=== PATIENT | male | born 1970 | race Caucasian/White ===

== ENCOUNTER 2021-04-07 19:38 | Emergency (ER) | payer OTHER, SELFPAY ==
--- NOTE | ~2021-04-07 | CT_ITS ---
EXAMINATION: CT ABDOMEN AND PELVIS WITHOUT CONTRAST CLINICAL INFORMATION: 51-year-old male with left lower quadrant pain. Question diverticulitis. COMPARISON: CT abdomen pelvis April 28, 2018 TECHNIQUE: Multidetector volumetric imaging was performed from the superior aspect of the liver through the pubic symphysis. Sagittal and coronal reformatted images were obtained on the technologist's workstation. This CT examination was performed using dose optimization techniques as appropriate, variously including the following: *Automated exposure control *Adjustment of mA and/or kV according to patient size (this includes techniques or standardized protocols for targeted exams where dose is matched to indication/reason for exam; i.e. extremities or head) *Use of iterative reconstruction technique DLP: 1150 mGy-cm FINDINGS: Visualized lung bases are well aerated. The liver is normal in size but demonstrates diffusely decreased attenuation. The gallbladder is decompressed. Mild fatty atrophy of the pancreas. The spleen and adrenal glands are unremarkable. Symmetrically sized kidneys. No renal calculi or hydronephrosis bilaterally. A few small bilateral renal hypodensities are poorly characterized given lack of IV contrast. Normal caliber loops of small and large bowel. Moderate colonic diverticulosis. No CT evidence to suggest active diverticulitis. Normal appendix. Normal caliber abdominal aorta. No retroperitoneal lymphadenopathy. The bladder is decompressed and therefore not accurately evaluated. The prostate gland is not enlarged. No inguinal lymphadenopathy. No gross free pelvic fluid. [id number] degenerative changes of the spine. CT/CT abdomen pelvis wo con IMPRESSION: 1. Colonic diverticulosis. No CT evidence to suggest active diverticulitis. 2. Diffusely decreased liver attenuation suggesting hepatic steatosis. Correlation with liver enzymes recommended.
--- NOTE | 2021-04-07 19:41 | ED_ITS ---
HPI - Abdominal Pain General Chief Complaint: Abdominal Pain Stated Complaint: chest pain stomach pain nausea Time Seen by Provider: 04/07/21 19:40 Source: patient Mode of arrival: ambulatory Limitations: no limitations History of Present Illness HPI narrative: Patient with chronic abdominal pain with history of div erticulitis complaining of his lower abdominal pain since yesterday with nausea and bloating got worse today no fever no chills no vomiting no blood in stool no fever no chills no diarrhea feels like pressure similar to that in the past no urinary complaints Related Data Previous Rx's Medication Instructions Recorded ciprofloxacin HCl [Cipro] 500 mg PO BID #20 tab 04/07/21 metronidazole [Flagyl] 500 mg PO BID #20 tab 04/07/21 ondansetron 4 mg PO Q6-8H PRN #7 tab 04/07/21 oxycodone 5 mg PO Q6H PRN #20 tab 04/07/21 Allergies Allergy/AdvReac Type Severity Reaction Status Date / Time hazelnut Allergy Severe ANAPHYLAXIS Verified 04/07/21 19:55 meperidine [Demerol] Allergy Unknown Dizziness Verified 04/07/21 19:55 From TORADOL Allergy Unknown HIVES Uncoded 04/07/21 19:55 hazelnut Allergy Unknown shortness Uncoded 04/07/21 19:55 of breath Review of Systems Review of Systems Constitutional : No Weight loss, No Fever, No Chills ENT/Mouth : No sore throat, No Rhinorrhea Eyes: No Eye Pain, No Swelling Cardiovascular : No Chest Pain, no palpitations Respiratory : No Cough, No Sputum, no shortness of breath Gastrointestinal : +Nausea, No Vomiting, No Diarrhea, + abdominal Pain, no black stools Genitourinary : No Dysuria, No Urinary Frequency Musculoskeletal : No joint pain, No Myalgias, No Joint Swelling Skin : No Skin Lesions, No rash Neuro : No Weakness, No Numbness, No Dizziness, No Headache Psych : No Anxiety/Panic, No Depression Heme/Lymph: No Bruising, No Lymphadenopathy Endocrine : No Polyuria, No Polydipsia All other systems reviewed and are negative Physical Exam Vital Signs: Vital Signs: Last Vital Signs Temp 98.8 F 04/07/21 20:00 Pulse 73 04/07/21 20:00 Resp 20 04/07/21 20:00 BP 157/88 H 04/07/21 20:00 Pulse Ox 95 06/03/21 20:00 Body Mass Index 47.9 Appearance: Alert. Oriented X3. No acute distress. Eyes: PERRLA, No Nystagmus ENT: Pharynx normal. Oral Mucosa moist Neck: Normal inspection. Neck supple. CVS: Normal heart rate and rhythm. Pulses normal. Respiratory: No respiratory distress. Equal air entry bilateral, no wheezing/rales/rhonchi Abdomen: Soft , deep tenderness left lower quadrant no rebound tenderness or guarding Bowel sounds are present, no mass palpable, no CVA tenderness Genitalia: Nontender normal size testicles no skin changes no hernia Skin: Skin warm and dry. Normal skin color. Normal skin turgor. Extremities: No lower extremity edema. No calf tenderness Neuro: Oriented X 3. No motor deficit. MDM - Abdominal Pain MDM Narrative Medical decision making narrative: Patient with diffuse lower abdominal pain CT scan without any diverticulitis but has elevated WBC count with significant diverticulosis and CT scan. Will discharge patient home on Cipro and Flagyl for possible subclinical diverticulitis Medical Records Attestation: I reviewed the patient's medical records. Lab Data Attestation: I reviewed the patient's lab results. Result diagrams: 04/07/21 20:15 04/07/21 20:15 Labs: Lab Results 04/07/21 04/07/21 04/07/21 Range/Units 20:07 20:15 20:15 WBC 16.6 H (4.8-10.8) X10*3/uL RBC 4.85 (4.60-5.80) X10*6/uL Hgb 15.6 (14.0-18.0) g/dl Hct 46.0 (42-52) % MCV 94.8 (80-98) fL MCH 32.2 (27.0-33.0) pg MCHC 33.9 (31.0-36.0) g/dl RDW 12.5 (11.0-16.0) % Plt Count 284 (160-400) X10*3/uL MPV 10.1 (9.4-12.4) fL Immature Gran % (Auto) 0.4 (0.0-0.4) % Neut % (Auto) 68.1 (45-73) % Lymph % (Auto) 22.5 (20-40) % [place] % (Auto) 7.9 (2-11) % Eos % (Auto) 0.8 (0-4) % Baso % (Auto) 0.3 (0-2) % Lymph # (Auto) 3.7 (1.2-4.9) X10*3/uL [place] # (Auto) 1.3 H (0.1-1.2) X10*3/uL Eos # (Auto) 0.1 (0.0-0.4) X10*3/uL Baso # (Auto) 0.1 (0.0-0.2) X10*3/uL Abs Immat Gran (auto) 0.07 H (0.00-0.03) X10*3/uL Absolute Neuts (auto) 11.3 H (2.0-8.3) X10*3/uL Absolute Nucleated RBC 0.000 (0.0-0.012) X10*3/uL Nucleated RBC % (auto) 0.0 (0.0-0.2) /100WBC Sodium 142 (135-145) mmol/L Potassium 4.1 (3.3-5.1) mmol/L Chloride 106 (96-108) mmol/L Carbon Dioxide 23 (22-29) mmol/L Anion Gap 17 (12-20) BUN 15 (9-16) mg/dL Creatinine 1.01 (0.5-1.4) mg/dL Estim Creat Clear Calc 112.8 Estimated GFR > 60 Random Glucose 113 (60-115) mg/dL Calcium 9.5 (8.4-10.2) mg/dL Total Bilirubin (0.0-1.0) mg/dL Direct Bilirubin (0.0-0.5) mg/dL AST (5-37) U/L ALT (0-40) U/L Alkaline Phosphatase (39-117) U/L Total Protein (6.5-8.0) g/dL Albumin (3.5-5.0) g/dL Lipase (8-78) U/L Urine Color YELLOW Urine Appearance CLEAR Urine pH 6.0 (5.0-8.0) Ur Specific [place] >= 1.030 H (1.005-1.025) Urine Protein TRACE (NEG-TRACE) MG/DL Urine Glucose (UA) 500 H (NEG) MG/DL Urine Ketones 5 (NEG) MG/DL Urine Blood NEG (NEG) Urine Nitrite NEG (NEG) Ur Leukocyte Esterase NEG (NEG) 04/07/21 Range/Units 20:15 WBC (4.8-10.8) X10*3/uL RBC (4.60-5.80) X10*6/uL Hgb (14.0-18.0) g/dl Hct (42-52) % MCV (80-98) fL MCH (27.0-33.0) pg MCHC (31.0-36.0) g/dl RDW (11.0-16.0) % Plt Count (160-400) X10*3/uL MPV (9.4-12.4) fL Immature Gran % (Auto) (0.0-0.4) % Neut % (Auto) (45-73) % Lymph % (Auto) (20-40) % [place] % (Auto) (2-11) % Eos % (Auto) (0-4) % Baso % (Auto) (0-2) % Lymph # (Auto) (1.2-4.9) X10*3/uL [place] # (Auto) (0.1-1.2) X10*3/uL Eos # (Auto) (0.0-0.4) X10*3/uL Baso # (Auto) (0.0-0.2) X10*3/uL Abs Immat Gran (auto) (0.00-0.03) X10*3/uL Absolute Neuts (auto) (2.0-8.3) X10*3/uL Absolute Nucleated RBC (0.0-0.012) X10*3/uL Nucleated RBC % (auto) (0.0-0.2) /100WBC Sodium (135-145) mmol/L Potassium (3.3-5.1) mmol/L Chloride (96-108) mmol/L Carbon Dioxide (22-29) mmol/L Anion Gap (12-20) BUN (9-16) mg/dL Creatinine (0.5-1.4) mg/dL Estim Creat Clear Calc Estimated GFR Random Glucose (60-115) mg/dL Calcium (8.4-10.2) mg/dL Total Bilirubin 0.6 (0.0-1.0) mg/dL Direct Bilirubin 0.2 (0.0-0.5) mg/dL AST 37 (5-37) U/L ALT 42 H (0-40) U/L Alkaline Phosphatase 83 (39-117) U/L Total Protein 7.5 (6.5-8.0) g/dL Albumin 4.3 (3.5-5.0) g/dL Lipase 57 (8-78) U/L Urine Color Urine Appearance Urine pH (5.0-8.0) Ur Specific [place] (1.005-1.025) Urine Protein (NEG-TRACE) MG/DL Urine Glucose (UA) (NEG) MG/DL Urine Ketones (NEG) MG/DL Urine Blood (NEG) Urine Nitrite (NEG) Ur Leukocyte Esterase (NEG) Discharge Plan Discharge Clinical Impression: Diverticulitis large intestine Patient Disposition: Home, Self-Care Instructions: Diverticulitis (ED) Additional Instructions: CT scan showed diverticulosis no clear-cut findings of infection but your white count are high. Will give antibiotic for possible infection. Pain medicine as advised. Report to the ER if worsening of the pain/ fever/ blood in stool Prescriptions: New ciprofloxacin HCl [Cipro] 500 mg tablet 500 mg PO BID Qty: 20 RF: 0 metronidazole [Flagyl] 500 mg tablet 500 mg PO BID Qty: 20 RF: 0 ondansetron 4 mg tablet,disintegrating 4 mg PO Q6-8H PRN (Reason: nausea and vomiting) Qty: 7 RF: 0 oxycodone 5 mg tablet 5 mg PO Q6H PRN (Reason: Pain, Moderate) Qty: 20 RF: 0 Interventions: ED Discharge Assessment Last Done: 04/07/21 21:51 Discharge Date/Time: 04/07/21 21:52 [facility] Social History Social History Advance Directives: No Advance Directives Information Provided: No
[2021-04-07 19:50] VITALS: BP 132/87; BP 157/88; PULSE 81; PULSE 88; RESP 20; TEMP 37.1; O2SAT 95; O2SAT 99; BMI 47.9
[2021-04-07 20:00] VITALS: BP 157/88; PULSE 73; RESP 20; TEMP 37.1; O2SAT 95
[2021-04-07 20:22] LABS: MANUAL DIFF FLAG NO
[2021-04-07 20:23] LABS: Basophils Absolute Auto 0.1 X10*3/uL (0.0-0.2); Basophils Percent Auto 0.3 % (0-2); Eosinophils Absolute Auto 0.1 X10*3/uL (0.0-0.4); Eosinophils Percent Auto 0.8 % (0-4); Hemoglobin 15.6 g/dl (14.0-18.0); Imm Gran Abs Auto 0.07 X10*3/uL (0.00-0.03); Imm Gran Pct Auto 0.4 % (0.0-0.4); Lymphocytes Absolute Auto 3.7 X10*3/uL (1.2-4.9); Lymphocytes Percent Auto 22.5 % (20-40); Mean Corpuscular HGB Conc 33.9 g/dl (31.0-36.0); Mean Corpuscular Hemoglobin 32.2 pg (27.0-33.0); Mean Corpuscular Volume 94.8 fL (80-98); Mean Platelet Volume 10.1 fL (9.4-12.4); Monocytes Absolute Auto 1.3 X10*3/uL (0.1-1.2); Monocytes Percent Auto 7.9 % (2-11); Neutrophils Absolute Auto 11.3 X10*3/uL (2.0-8.3); Neutrophils Percent Auto 68.1 % (45-73); Platelet Count 284 X10*3/uL (160-400); Red Blood Count 4.85 X10*6/uL (4.60-5.80); Red Cell Distribution Width 12.5 % (11.0-16.0); White Blood Count 16.6 X10*3/uL (4.8-10.8)
[2021-04-07 20:23] LABS: Appearance Urine CLEAR; Color Urine YELLOW; Glucose Urine UA 500 MG/DL (NEG); Leukocyte Esterase Urine NEG (NEG); Nitrite Urine NEG (NEG); Specific Gravity - Urine >= 1.030 (1.005-1.025); Urine Blood NEG (NEG); Urine Ketones 5 MG/DL (NEG); Urine Protein TRACE MG/DL (NEG-TRACE)
[2021-04-07] MEDS: ondansetron HCL 4 MG/2 ML VIAL IVPUSH (20:31)
[2021-04-07] MEDS: Morphine Sulfate 4 MG/ML CARTRIDGE IVPUSH (20:31)
[2021-04-07] MEDS: 0.9 % Sodium Chloride 1,000 ML 999 ML IVCONT (20:31)
[2021-04-07 20:44] LABS: Anion Gap 17 (12-20); Blood Urea Nitrogen 15 mg/dL (9-16); Calcium 9.5 mg/dL (8.4-10.2); Carbon Dioxide 23 mmol/L (22-29); Chloride 106 mmol/L (96-108); Creatinine Clr Calc Pharmacy 112.8; Estimated Glomerular Filt Rate > 60; Glucose Random 113 mg/dL (60-115); Potassium 4.1 mmol/L (3.3-5.1); Sodium 142 mmol/L (135-145)
[2021-04-07 20:51] LABS: Alanine Aminotransferase 42 U/L (0-40); Albumin Level 4.3 g/dL (3.5-5.0); Alkaline Phosphatase 83 U/L (39-117); Aspartate Amino Transferase 37 U/L (5-37); Bilirubin Direct 0.2 mg/dL (0.0-0.5); Bilirubin Total 0.6 mg/dL (0.0-1.0); Lipase 57 U/L (8-78); Total Protein 7.5 g/dL (6.5-8.0)
[2021-04-07] MEDS: metroNIDAZOLE 500 MG TABLET PO (21:45)
[2021-04-07] MEDS: levoFLOXacin 500 MG TABLET PO (21:45)
== END 2021-04-07 21:52 | disposition home or self-care (01) ==
PROVIDERS: Emergency Provider Internal Medicine; PCP Family Medicine
DX: K57.32 Diverticulitis of large intestine without perforation or abscess without bleeding (principal); R10.30 Lower abdominal pain, unspecified
CPT/HCPCS: 36415; 74176; 80048; 80076; 81003; 83690; 85025; 96361; 96374; 96375; 99284; J2270; J2405

== ENCOUNTER → 2021-04-28 09:26 | Outpatient (BNVA) | payer OTHER, SELFPAY | PROVIDERS: PCP Family Medicine; Referring Provider Family Medicine; Visit Provider Surgery | DX: K57.90 Diverticulosis of intestine, part unspecified, without perforation or abscess without bleeding (principal) | CPT/HCPCS: 99212 ==

== ENCOUNTER 2021-06-28 10:11 | Outpatient (REF) | payer OTHER, SELFPAY | END 2021-06-28 10:12 | disposition home or self-care (01) | LOC: HO.US 10:11 | PROVIDERS: Visit Provider Family Medicine | DX: Z13.89 Encounter for screening for other disorder (principal) ==

== ENCOUNTER 2021-06-29 12:40 | Outpatient (REF) | payer OTHER, SELFPAY ==
--- NOTE | ~2021-06-29 | US_ITS ---
EXAMINATION: US SCROTUM CLINICAL INFORMATION: Right testicular pain. COMPARISON: Scrotal ultrasound 05/30/2012 and 04/03/2012. TECHNIQUE: A sonogram of the scrotum was performed assessing duarte-scale appearance and color Doppler flow. Spectral Doppler analysis of the arterial and venous flow were performed in the testes bilaterally. FINDINGS: RIGHT: Right testicle measures 3.0 x 2.8 x 2.7 cm, volume 12.2 mL. There are 2 simple testicular cysts, largest measuring 4 x 4 x 3 mm. There is a small testicular appendage measuring 3 x 2 x 2 mm. No other focal testicular parenchymal lesions are visualized. Spectral Doppler analysis of the arterial and venous flow is normal in the right testis. There is a large right hydrocele. Right epididymal head is normal in size. No right varicocele is seen. Right epididymal Doppler flow is normal. LEFT: Left testicle measures 3.8 x 2.2 x 3.0 cm, volume 12.9 mL. There is a 2 mm cyst. No other focal testicular parenchymal lesions are visualized. Spectral Doppler analysis of the arterial and venous flow is normal in the left testis. There is a large left hydrocele. Left epididymal head is normal in size. No left varicocele is seen. Left epididymal Doppler flow is normal. US/US scrotum IMPRESSION: Large bilateral hydroceles, right greater than left. Small bilateral testicular cysts.
== END 2021-06-29 12:41 | disposition home or self-care (01) ==
LOC: HO.US 12:40
PROVIDERS: Visit Provider Family Medicine
DX: N50.811 Right testicular pain (principal); N50.89 Other specified disorders of the male genital organs
CPT/HCPCS: 76870

== ENCOUNTER → 2022-03-02 10:36 | Outpatient (BNVA) | payer OTHER, SELFPAY | PROVIDERS: PCP Family Medicine; Referring Provider Family Medicine; Visit Provider Surgery | DX: N50.89 Other specified disorders of the male genital organs (principal) | CPT/HCPCS: 99212 ==

== ENCOUNTER 2022-04-20 10:18 | Outpatient (REF) | payer OTHER, SELFPAY ==
--- NOTE | ~2022-04-20 | US_ITS ---
EXAMINATION: US SCROTUM CLINICAL INFORMATION: Scrotal mass. COMPARISON: Scrotal ultrasound 06/29/2021 and 05/30/2012. TECHNIQUE: A sonogram of the scrotum was performed assessing duarte-scale appearance and color Doppler flow. Spectral Doppler analysis of the arterial and venous flow were performed in the testes bilaterally. FINDINGS: RIGHT: Right testicle measures 4.0 x 2.2 x 2.7 cm, volume 12.4 mL. There are right-sided small cysts measuring 0.4 x 0.4 x 0.4 cm, 0.4 x 0.3 x 0.4 cm and 0.4 x 0.4 x 0.5 cm. Spectral Doppler analysis of the arterial and venous flow is normal in the right testis. Right epididymal head is normal in size. Small anechoic cyst seen in the epididymal head measuring 0.158 cm. No right varicocele is seen. Right epididymal Doppler flow is normal. There is large right hydrocele measuring approximately 7.3 x 2.7 x 6.9 cm. LEFT: Left testicle measures 3.9 x 2.2 x 2.8 cm, volume 12.6 mL. There a small cysts measuring 0.3 x 0.3 x 0.3 cm and 0.1 x 0.1 x 0.1 cm. Spectral Doppler analysis of the arterial and venous flow is normal in the left testis. Left epididymal head is unremarkable except for small cysts measuring 0.4 x 0.4 x 0.5 cm, 0.4 x 0.4 x 0.3 cm and 0.3 x 0.5 x 0.3 cm. No left varicocele is seen. Left epididymal Doppler flow is normal. US/US scrotum IMPRESSION: Bilateral epididymal cysts and bilateral testicular cysts. There is normal scrotal arteriovenous flow to both testes and epididymides. There is large right hydrocele. A few left epididymal head cysts are noted.
== END 2022-04-20 10:19 | disposition home or self-care (01) ==
LOC: HO.HMGCX 10:18
PROVIDERS: PCP Family Medicine; Visit Provider Surgery
DX: N50.89 Other specified disorders of the male genital organs (principal)
CPT/HCPCS: 76870

== ENCOUNTER 2022-04-26 08:06 | Emergency (ER) | payer OTHER, SELFPAY ==
[2022-04-26 08:07] VITALS: BP 140/91; PULSE 91; RESP 20; TEMP 36.5; O2SAT 96; BMI 45.1
--- NOTE | 2022-04-26 08:26 | ED.MALEGU ---
HPI - Male Genitourinary General Chief complaint: Urogenital-Male Stated complaint: Private Area Issue Time Seen by Provider: 04/26/22 08:14 Source: patient Mode of arrival: ambulatory Limitations: no limitations History of Present Illness Complaint: other (cant retract foreskin) Onset (ago): day(s) (3) Duration: constant Location: penis Radiation: penis Severity: mild Relieving factors: none Exacerbating factors: other (trying to pull back foreskin) Associated symptoms: Reports denies other symptoms Related Data Previous Rx's Medication Instructions Recorded ciprofloxacin HCl 500 mg tablet 500 mg PO BID #20 tabs 04/07/21 (Cipro) metronidazole 500 mg tablet 500 mg PO BID #20 tabs 04/07/21 (Flagyl) ondansetron 4 mg disintegrating 4 mg PO Q6-8H PRN nausea and 04/07/21 tablet vomiting #7 tabs oxycodone 5 mg tablet 5 mg PO Q6H PRN Pain, Moderate #20 04/07/21 tabs amoxicillin 875 mg-potassium 1 tab PO BID #14 tabs 04/26/22 clavulanate 125 mg tablet clotrimazole 1 % topical cream 1 appl topical BID 2 weeks #30 04/26/22 grams Allergies Allergy/AdvReac Type Severity Reaction Status Date / Time hazelnut Allergy Severe ANAPHYLAXIS Verified 03/02/22 11:04 meperidine [Demerol] Allergy Unknown Dizziness Verified 03/02/22 11:04 From TORADOL Allergy Unknown HIVES Uncoded 02/01/22 13:15 hazelnut Allergy Unknown shortness Uncoded 02/01/22 13:15 of breath Review of Systems Review of Systems: Constitutional : No Fever, No Chills ENT/Mouth : No sore throat, No Rhinorrhea Cardiovascular : No Chest Pain, No SOB Respiratory : No Cough, No Sputum, No Wheezing Gastrointestinal : No Nausea, No Vomiting, No Diarrhea Genitourinary : No Dysuria, No Urinary Frequency, No Hematuria, no rash Musculoskeletal : No joint pain, No Myalgias, No Joint Swelling Skin : No Skin Lesions, No rash Neuro : No Weakness, No Numbness, No Dizziness, No Headache Psych : No Anxiety/Panic, No Depression PMFSH Past Medical History Attestation statement: The following information was validated with the patient. Medical History (Updated 04/26/22 @ 08:35 by Park Brantley DO) Diabetes Diverticulosis HTN (hypertension) Family History Family History Sister Breast cancer Maternal Aunt Colon cancer Family/Other Colon cancer Social History Social History Alcohol intake: never Patient Tobacco Use Status: Current everyday Tobacco user Advance Directives: No Advance Directives Information Provided: No Physical Exam Vital Signs: Vital Signs: Last Vital Signs Temp 97.7 F 04/26/22 08:07 Pulse 91 04/26/22 08:07 Resp 20 04/26/22 08:07 BP 140/91 H 04/26/22 08:07 Pulse Ox 96 04/26/22 08:07 O2 Del Method 04/26/22 08:07 BMI result Body Mass Index 45.1 Appearance: Alert. Oriented X3. No acute distress. Eyes: Pupils equal, round and reactive to light. ENT: Pharynx normal. Neck: Normal inspection. Neck supple. CVS: Normal heart rate and rhythm. Pulses normal. Respiratory: No respiratory distress. Breath sounds normal. Abdomen: Soft and nontender. Obese : phimosis of foreskin but able to see small part of glans mild erythema of distal foreskin, small cracks in foreskin small white discharge seen no crepitus no other discolorations Skin: Skin warm and dry. Normal skin color. Extremities: No lower extremity edema. Neuro: Oriented X 3. No motor deficit. No sensory deficit. MDM - Male Genitourinary MDM Narrative Medical decision making narrative: 52 yo male hx of HTN, DM here with phimosis able to urinate notes x 3 days has balanitis but glans is not markedly swollen at this time will start on clotrimazole and augmentin refer to Urology given precautions to return Discharge Plan Discharge Clinical Impression: Balanitis, Phimosis Patient Disposition: Home, Self-Care Instructions: Phimosis (ED), Balanitis (ED) Additional Instructions: return to ED for any worsening symptoms or concerns if not better in 3 days call urology if you cannot urinate please return, you need to try to pull back and apply ointment Prescriptions: New clotrimazole 1 % cream 1 appl topical BID 14 Days Qty: 30 0RF amoxicillin-pot clavulanate 875-125 mg tablet 1 tab PO BID Qty: 14 0RF No Action ciprofloxacin HCl [Cipro] 500 mg tablet 500 mg PO BID Qty: 20 0RF metronidazole [Flagyl] 500 mg tablet 500 mg PO BID Qty: 20 0RF ondansetron 4 mg tablet,disintegrating 4 mg PO Q6-8H PRN (Reason: nausea and vomiting) Qty: 7 0RF oxycodone 5 mg tablet 5 mg PO Q6H PRN (Reason: Pain, Moderate) Qty: 20 0RF Referrals: Pal Yañez MD [Physician] - 3 days Stand Alone Forms: Work/School Release
== END 2022-04-26 08:58 | disposition home or self-care (01) ==
PROVIDERS: Emergency Provider Emergency Medicine; PCP Family Medicine
DX: N47.1 Phimosis (principal); N48.1 Balanitis; Z79.899 Other long term (current) drug therapy; F17.200 Nicotine dependence, unspecified, uncomplicated; Z71.6 Tobacco abuse counseling
CPT/HCPCS: 99283

== ENCOUNTER 2022-07-13 08:37 | Emergency (ER) | payer OTHER, SELFPAY ==
[2022-07-13 08:38] VITALS: BP 135/89; PULSE 77; RESP 18; TEMP 36.5; O2SAT 97; BMI 46.3
== END 2022-07-13 21:18 | disposition left against medical advice (07) ==
PROVIDERS: Emergency Provider Emergency Medicine; PCP Family Medicine
DX: R10.30 Lower abdominal pain, unspecified (principal)
CPT/HCPCS: 99281

== ENCOUNTER 2022-12-16 08:12 | Emergency (ER) | payer OTHER, SELFPAY ==
--- NOTE | ~2022-12-16 | CT_ITS ---
EXAMINATION: CT ABDOMEN AND PELVIS WITHOUT CONTRAST CLINICAL INFORMATION: Lower abdominal pain. Evaluate for diverticulitis. COMPARISON: Multiple priors, most recent CT abdomen/pelvis dated 04/07/2021. TECHNIQUE: Multidetector volumetric imaging was performed from the superior aspect of the liver through the pubic symphysis. Sagittal and coronal reformatted images were obtained on the technologist's workstation. This CT examination was performed using dose optimization techniques as appropriate, variously including the following: *Automated exposure control *Adjustment of mA and/or kV according to patient size (this includes techniques or standardized protocols for targeted exams where dose is matched to indication/reason for exam; i.e. extremities or head) *Use of iterative reconstruction technique DLP: 1068 mGy-cm FINDINGS: LUNG BASES: The visualized lung bases are unremarkable. LIVER, GALLBLADDER, AND BILIARY TREE: Hepatomegaly and parenchymal hypoattenuation are redemonstrated, consistent with steatosis. No focal parenchymal lesion or biliary ductal dilatation. The gallbladder is unremarkable with no evidence of radiopaque gallstones, gallbladder wall thickening, or obvious pericholecystic inflammatory changes. PANCREAS: Unremarkable. SPLEEN: Unremarkable. ADRENAL GLANDS: Unremarkable. KIDNEYS AND URETERS: The kidneys are normal in size, shape, and attenuation. No hydronephrosis, hydroureter, or calculi seen. Stable left renal cyst. Findings are not clinically significant and no dedicated followup imaging is recommended. No perinephric stranding. BLADDER: Unremarkable. GASTROINTESTINAL TRACT: Sigmoid diverticulosis without evidence of acute diverticulitis. No bowel wall thickening or inflammatory change. No small-or large-bowel obstruction. Unremarkable appendix. PERITONEAL CAVITY: No intra-abdominal free air or free fluid. No intra-abdominal mass or organized fluid collection/abscess formation. ABDOMINAL WALL: No significant hernia is appreciated. LYMPH NODES: No significant lymphadenopathy. VASCULAR: No abdominal aortic dilatation. Atherosclerotic calcifications. PELVIC VISCERA: The prostate and seminal vesicles are unremarkable. OSSEOUS STRUCTURES: No acute osseous abnormality. Degenerative disease and facet arthropathy is unchanged. CT/CT abdomen pelvis wo IV con IMPRESSION: 1. Diverticulosis without evidence of acute diverticulitis. No small- or large-bowel obstruction. Unremarkable appendix. 2. No intra-abdominal mass, lymphadenopathy, or ascites. 3. Additional chronic findings are unchanged. Fleischner guidelines were followed.
[2022-12-16 08:17] VITALS: BP 124/76; BP 170/90; PULSE 69; PULSE 72; RESP 20; TEMP 35.8; O2SAT 95; O2SAT 97; BMI 45.1
[2022-12-16 08:30] LABS: MANUAL DIFF FLAG NO
[2022-12-16 08:32] LABS: Basophils Percent Auto 0.3 % (0-2); Eosinophils Absolute Auto 0.1 X10*3/uL (0.0-0.4); Hematocrit 47.7 % (42.0-52.0); Hemoglobin 16.1 g/dl (14.0-18.0); Imm Gran Abs Auto 0.03 X10*3/uL (0.00-0.03); Imm Gran Pct Auto 0.4 % (0.0-0.4); Lymphocytes Absolute Auto 1.7 X10*3/uL (1.2-4.9); Lymphocytes Percent Auto 21.6 % (20-40); Mean Corpuscular HGB Conc 33.8 g/dl (31.0-36.0); Mean Corpuscular Hemoglobin 31.8 pg (27.0-33.0); Mean Corpuscular Volume 94.3 fL (80.0-98.0); Mean Platelet Volume 10.1 fL (9.4-12.4); Monocytes Percent Auto 12.3 % (2-11); Neutrophils Absolute Auto 5.1 x10*3/uL (2.0-8.3); Neutrophils Percent Auto 64.4 % (45-73); Platelet Count 222 X10*3/uL (160-400); Red Blood Count 5.06 X10*6/uL (4.60-5.80); Red Cell Distribution Width 12.5 % (11.0-16.0); White Blood Count 7.9 X10*3/uL (4.8-10.8)
[2022-12-16 08:50] LABS: Alanine Aminotransferase 77 U/L (0-40); Albumin Level 4.2 g/dL (3.5-5.0); Alkaline Phosphatase 84 U/L (39-117); Anion Gap 13 (12-20); Aspartate Amino Transferase 57 U/L (5-37); Bilirubin Direct < 0.2 mg/dL (0.0-0.5); Bilirubin Total 0.5 mg/dL (0.0-1.0); Blood Urea Nitrogen 11 mg/dL (9-16); Carbon Dioxide 26 mmol/L (22-29); Chloride 105 mmol/L (96-108); Creatinine Clr Calc Pharmacy 107.8; Estimated Glomerular Filt Rate > 60; Glucose Random 197 mg/dL (60-115); Lipase 34 U/L (8-78); Potassium 4.1 mmol/L (3.3-5.1); Sodium 140 mmol/L (135-145)
[2022-12-16] MEDS: Acetaminophen 325 MG TABLET 650 MG PO (09:41)
--- NOTE | 2022-12-16 10:18 | ED_ITS ---
HPI - Abdominal Pain General Chief Complaint: Abdominal Pain Stated Complaint: ABD PAIN X'S 3 DAYS,WORSE TODAY Time Seen by Provider: 12/16/22 10:07 Source: patient Mode of arrival: ambulatory Limitations: no limitations History of Present Illness HPI narrative: 52-year-old male with history of diabetes, hypertension, diverticulitis who presents to the emergency room with complaints of lower abdominal pain for the last 3 days. Patient reports on day 1 and 2 he had 4 episodes daily of diarrhea 3 episodes of vomiting. He did have a normal bowel movement this morning. No vomiting today. No urinary symptoms, fevers or chills. Related Data Previous Rx's Medication Instructions Recorded ciprofloxacin HCl 500 mg tablet 500 mg PO BID #20 tabs 04/07/21 (Cipro) metronidazole 500 mg tablet 500 mg PO BID #20 tabs 04/07/21 (Flagyl) ondansetron 4 mg disintegrating 4 mg PO Q6-8H PRN nausea and 04/07/21 tablet vomiting #7 tabs oxycodone 5 mg tablet 5 mg PO Q6H PRN Pain, Moderate #20 04/07/21 tabs amoxicillin 875 mg-potassium 1 tab PO BID #14 tabs 04/26/22 clavulanate 125 mg tablet clotrimazole 1 % topical cream 1 appl topical BID 2 weeks #30 04/26/22 grams amoxicillin 875 mg-potassium 1 tab PO BID #14 tabs 12/16/22 clavulanate 125 mg tablet Allergies Allergy/AdvReac Type Severity Reaction Status Date / Time hazelnut Allergy Severe ANAPHYLAXIS Verified 03/02/22 11:04 meperidine [Demerol] Allergy Unknown Dizziness Verified 03/02/22 11:04 From TORADOL Allergy Unknown HIVES Uncoded 02/01/22 13:15 hazelnut Allergy Unknown shortness Uncoded 02/01/22 13:15 of breath Review of Systems Review of Systems Yes all other systems are reviewed and are negative Constitutional: Reports no additional constitutional complaints, Denies body ache(s), Denies chills, Denies fever(s), Denies headache(s) and Denies weakness Eyes: Reports no additional eye complaints and Denies change in vision Reports system reviewed and no additional complaints, except as documented, Denies dizziness, Denies headache(s), Denies nasal congestion, Denies nasal discharge and Denies neck pain Cardiovascular: Reports no additional cardiovascular complaints, Denies chest pain, Denies leg edema and Denies dyspnea Respiratory: Reports no additional respiratory complaints, Denies cough and Denies dyspnea Gastrointestinal: Reports no additional gastrointestinal complaints, Reports abdominal pain, Reports diarrhea, Reports nausea and Reports vomiting Genitourinary: Denies urinary incontinence Musculoskeletal: Reports no additional musculoskeletal complaints, Denies back pain, Denies arthralgias, Denies joint swelling, Denies neck pain, Denies numbness and Denies tingling Skin/Breast: Reports system reviewed and no additional complaints, except as docu and Denies rash Reports system reviewed and no additional complaints, except as documented, Denies dizziness, Denies headache(s), Denies numbness, Denies tingling and Denies weakness PMFSH Past Medical History Attestation statement: The following information was validated with the patient. Source: old records reviewed and nursing notes reviewed Medical History Diabetes Diverticulosis HTN (hypertension) Scrotal mass Family History Family History Sister Breast cancer Maternal Aunt Colon cancer Family/Other Colon cancer Social History Social History Alcohol intake: unknown Patient Tobacco Use Status: Current everyday Tobacco user Smoked in Last 30 Days: No Advance Directives: No Advance Directives Information Provided: Yes Physical Exam ED Vital Signs: Vital Signs - 24 hr 12/16/22 08:17 12/16/22 11:54 Temperature 96.5 F L Pulse Rate 69 58 Respiratory Rate 20 18 Blood Pressure 124/76 101/67 Pulse Oximetry 95 97 Oxygen Delivery Method Room Air Room Air BMI result Body Mass Index 45.1 Const General: cooperative, healthy appearing, comfortable and no acute distress Orientation/consciousness: patient oriented x3 Limitations: no limitations HENMT Head: Yes normal to inspection Ears: hearing grossly normal bilaterally Eyes General: appearance normal, both eyes and all related structures Pupils: Equal, round and reactive pupils present Neck Neck: Yes normal visual inspection Chest Chest palpation & inspection: normal inspection of the chest Resp Effort & Inspection: normal respiratory effort Auscultation: clear to auscultation bilaterally Cardio Rate: regular rate Rhythm: regular rhythm Peripheral pulses: Peripheral pulses 2+ throughout GI Inspection: Yes normal to inspection Palpation (GI): Soft to palpation and Tenderness to palpation present (GI) ( bilateral lower quadrant tenderness with no rebound or guarding) Auscultation: normal bowel sounds 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 General: Yes no CVA tenderness Penis: normal penis and uncircumcised Meatus: meatus normal Scrotum: scrotum normal Testes: Testes normal Back/Spine/Pelvis Back: no CVA tenderness Thoracic/Lumbar Spine: thoracic and lumbar spine normal to inspection Skin General skin exam: no rashes or lesions noted Neuro General: patient oriented x3 and moves all extremities Cranial nerves: Yes Equal, round and reactive pupils present Cognition (Neuro): normal cognition Gait exam (Neuro): Normal gait present Extrem General: Yes normal to inspection Course Course Course Narrative: CT shows moderate to severe diverticulosis. Patient with pain on palpation in lower quadrants. No obvious diverticulitis, abscess or perforation seen on CT scan however clinically patient may have diverticulitis and so he will be treated with course of antibiotics. His pain is well controlled. He has no nausea or vomiting here. He is tolerating p.o.. Reviewed worrisome signs and symptoms of when to return to the emergency room. Comfortable plan for discharge home. Medical Decision Making Medical Decision Making [facility] Narrative: this is a 52-year-old male with a history of diverticulitis who presents with 3 days of lower abdominal pain with vomiting and diarrhea. On exam patient tenderness bilaterally to lower quadrants with no rebound or guarding. Vitals stable. Will obtain labs, UA, CT Differential Diagnosis Differential Diagnoses: The differential diagnosis associated with the presentation includes consider diverticulitis, gastroenteritis less likely appendicitis, pancreatitis Lab Data [facility] Lab Attestation statement: I reviewed the patient's lab results. 12/16/22 08:27 12/16/22 08:27 Labs: Lab Results 12/16/22 12/16/22 Range/Units 08:27 08:27 WBC 7.9 (4.8-10.8) X10*3/uL RBC 5.06 (4.60-5.80) X10*6/uL Hgb 16.1 (14.0-18.0) g/dl Hct 47.7 (42.0-52.0) % MCV 94.3 (80.0-98.0) fL MCH 31.8 (27.0-33.0) pg MCHC 33.8 (31.0-36.0) g/dl RDW 12.5 (11.0-16.0) % Plt Count 222 (160-400) X10*3/uL MPV 10.1 (9.4-12.4) fL Immature Gran % (Auto) 0.4 (0.0-0.4) % Neut % (Auto) 64.4 (45-73) % Lymph % (Auto) 21.6 (20-40) % Dyer % (Auto) 12.3 H (2-11) % Eos % (Auto) 1.0 (0-4) % Baso % (Auto) 0.3 (0-2) % Lymph # (Auto) 1.7 (1.2-4.9) X10*3/uL Dyer # (Auto) 1.0 (0.1-1.2) X10*3/uL Eos # (Auto) 0.1 (0.0-0.4) X10*3/uL Baso # (Auto) 0.0 (0.0-0.2) X10*3/uL Abs Immat Gran (auto) 0.03 (0.00-0.03) X10*3/uL Absolute Neuts (auto) 5.1 (2.0-8.3) x10*3/uL Absolute Nucleated RBC 0.000 (0.0-0.012) X10*3/uL Nucleated RBC % (auto) 0.0 (0.0-0.2) /100WBC Sodium 140 (135-145) mmol/L Potassium 4.1 (3.3-5.1) mmol/L Chloride 105 (96-108) mmol/L Carbon Dioxide 26 (22-29) mmol/L Anion Gap 13 (12-20) BUN 11 (9-16) mg/dL Creatinine 1.01 (0.5-1.4) mg/dL Estim Creat Clear Calc 107.8 Estimated GFR > 60 Random Glucose 197 H (60-115) mg/dL Calcium 9.0 (8.4-10.2) mg/dL Total Bilirubin 0.5 (0.0-1.0) mg/dL Direct Bilirubin < 0.2 (0.0-0.5) mg/dL AST 57 H (5-37) U/L ALT 77 H (0-40) U/L Alkaline Phosphatase 84 (39-117) U/L Total Protein 7.0 (6.5-8.0) g/dL Albumin 4.2 (3.5-5.0) g/dL Lipase 34 (8-78) U/L Independent Interpretation I performed an independent interpretation of an: CT Scan Interpretation: I independently reviewed the CT scan and agree with the radiologist's report Radiology Impression Discussion of test interpretation with radiology: I have reviewed the radiologist's reading. Radiologist Impression: FINDINGS: LUNG BASES: The visualized lung bases are unremarkable.? LIVER, GALLBLADDER, AND BILIARY TREE: Hepatomegaly and parenchymal hypoattenuation are redemonstrated, consistent with steatosis. No focal parenchymal lesion or biliary ductal dilatation. The gallbladder is unremarkable with no evidence of radiopaque gallstones, gallbladder wall thickening, or obvious pericholecystic inflammatory changes.? PANCREAS: Unremarkable.? SPLEEN: Unremarkable.? ADRENAL GLANDS: Unremarkable.? KIDNEYS AND URETERS: The kidneys are normal in size, shape, and attenuation. No hydronephrosis, hydroureter, or calculi seen. Stable left renal cyst. Findings are not clinically significant and no dedicated followup imaging is recommended. No perinephric stranding. ? BLADDER: Unremarkable.? GASTROINTESTINAL TRACT: Sigmoid diverticulosis without evidence of acute diverticulitis. No bowel wall thickening or inflammatory change. No small-or large-bowel obstruction. Unremarkable appendix. PERITONEAL CAVITY: No intra-abdominal free air or free fluid. No intra-abdominal mass or organized fluid collection/abscess formation.? ABDOMINAL WALL: No significant hernia is appreciated.? LYMPH NODES: No significant lymphadenopathy. VASCULAR: No abdominal aortic dilatation. Atherosclerotic calcifications. PELVIC VISCERA: The prostate and seminal vesicles are unremarkable.? OSSEOUS STRUCTURES: No acute osseous abnormality. Degenerative disease and facet arthropathy is unchanged.? CT/CT abdomen pelvis wo IV con IMPRESSION: 1. Diverticulosis without evidence of acute diverticulitis. No small- or large-bowel obstruction. Unremarkable appendix. ? 2. No intra-abdominal mass, lymphadenopathy, or ascites. ? 3. Additional chronic findings are unchanged. ? Fleischner guidelines were followed. Medications Administered Discontinued Medications Generic Name Dose Route Start Last Admin Trade Name Freq PRN Reason Stop Dose Admin Acetaminophen 650 mg 02/11/23 09:38 12/16/22 09:41 Acetaminophen 325 Mg Tablet PO 12/16/22 09:39 650 mg ONCE ONE Administration Discharge Plan Discharge Clinical Impression: Diverticulitis Patient Disposition: Home, Self-Care Instructions: Diverticulitis (ED), Diverticulitis Diet (ED) Additional Instructions: take the antibiotics as prescribed You need to follow-up with your primary care doctor Prescriptions: New amoxicillin-pot clavulanate 875-125 mg tablet 1 tab PO BID Qty: 14 0RF No Action ciprofloxacin HCl [Cipro] 500 mg tablet 500 mg PO BID Qty: 20 0RF metronidazole [Flagyl] 500 mg tablet 500 mg PO BID Qty: 20 0RF ondansetron 4 mg tablet,disintegrating 4 mg PO Q6-8H PRN (Reason: nausea and vomiting) Qty: 7 0RF oxycodone 5 mg tablet 5 mg PO Q6H PRN (Reason: Pain, Moderate) Qty: 20 0RF clotrimazole 1 % cream 1 appl topical BID 14 Days Qty: 30 0RF amoxicillin-pot clavulanate 875-125 mg tablet 1 tab PO BID Qty: 14 0RF Referrals: Anali Henry MD [Primary Care Provider] - 5 days Stand Alone Forms: Against Medical Advice Interventions: ED Discharge Assessment Last Done: 12/16/22 12:16 Discharge Date/Time: 12/16/22 12:24
--- NOTE | 2022-12-16 10:19 | PC.NURSE ---
Patient with reported Rsidied abd pain tender with auscultation/light palpation no guarding noted BS quad x 4. Aox 4 no respiratory distress noted LS clear speaks in clear full tones no slurring of words no facial droop or drift neuros intact. IV access obtained will CTM
--- NOTE | 2022-12-16 11:00 | PC.NURSE ---
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
[2022-12-16 11:54] VITALS: BP 101/67; PULSE 58; RESP 18; O2SAT 97
== END 2022-12-16 12:24 | disposition home or self-care (01) ==
PROVIDERS: Emergency Provider Student in an Organized Health Care Education/Training Program; PCP Family Medicine
DX: K57.32 Diverticulitis of large intestine without perforation or abscess without bleeding (principal); E11.9 Type 2 diabetes mellitus without complications; I10 Essential (primary) hypertension; F17.200 Nicotine dependence, unspecified, uncomplicated; Z79.899 Other long term (current) drug therapy
CPT/HCPCS: 36415; 74176; 80048; 80076; 83690; 85025; 99284

== ENCOUNTER → 2023-03-14 09:55 | Outpatient (BNVA) | payer OTHER, SELFPAY | PROVIDERS: PCP Family Medicine; Visit Provider Surgery | DX: Z01.818 Encounter for other preprocedural examination (principal); Z80.0 Family history of malignant neoplasm of digestive organs; K57.90 Diverticulosis of intestine, part unspecified, without perforation or abscess without bleeding; Z87.19 Personal history of other diseases of the digestive system | CPT/HCPCS: 99212 ==

== ENCOUNTER 2023-06-01 06:41 | Day surgery (SDC) | payer OTHER, SELFPAY ==
[2023-05-29 15:05] VITALS: BMI 45.5
--- NOTE | 2023-05-31 09:23 | P.CONAN_ITS ---
Documented by User: Denise Mnotoya NP 05/31/23 09:25 HPI - Anesthesia Eval Consult details Narrative: 53yo M for Colonoscopy, Poss Polypectomy PMFSH Active Problems Active Problems: All Active Problems (Updated 03/14/23 @ 10:19 by Rubén Patino MD) Family history of pancreatic cancer (Acute) Family history of colon cancer (Acute) Morbid obesity (Acute) Scrotal mass (Acute) Past Medical History Medical History Diabetes Diverticulosis Family history of colon cancer Family history of pancreatic cancer HTN (hypertension) Morbid obesity Scrotal mass Family History Family History Sister Breast cancer Ovarian cancer Maternal Aunt Colon cancer Family/Other Colon cancer Brother Pancreatic cancer Social History Social History Alcohol intake: unknown Patient Tobacco Use Status: Current everyday Tobacco user Tobacco use type: Cigarette Cigarettes Per Day: 10 Use of substances other than those prescribed or required for medical reasons: No Are you DNR?: No Advance Directives: No Advance Directives Information Provided: Yes Meds Allergies Allergy/AdvReac Type Severity Reaction Status Date / Time hazelnut Allergy Severe ANAPHYLAXIS Verified 03/14/23 10:01 meperidine [Demerol] Allergy Unknown Dizziness Verified 03/14/23 10:01 From TORADOL Allergy Unknown HIVES Uncoded 03/14/23 10:01 Home Medications Medication Instructions Recorded Confirmed Last Taken Type dulaglutide 0.75 mg/0.5 mL mg subcut 03/14/23 05/25/23 History subcutaneous pen injector (Trulicity) lisinopril 40 mg tablet 40 mg PO DAILY 03/14/23 06/01/23 Unknown History lorazepam 2 mg tablet 2 mg PO BEDTIME PRN Anxiety 03/14/23 06/01/23 Unknown History omeprazole 20 mg capsule,delayed 20 mg PO DAILY 03/14/23 06/01/23 Unknown History release empagliflozin 25 mg tablet 25 mg PO DAILY 06/01/23 06/01/23 Unknown History (Jardiance) Exam Exam Date and Time: May 31, 2023922 Height,Weight and Vital Signs: Height 5 ft 6 in Weight 127.913 kg Pertinent Lab Results Pertinent Lab Results: Laboratory Tests 12/16/22 12/16/22 08:27 08:27 WBC 7.9 Hgb 16.1 Hct 47.7 Plt Count 222 Sodium 140 Potassium 4.1 Chloride 105 Carbon Dioxide 26 BUN 11 Creatinine 1.01 Assessment and Plan Assessment Anesthesia Assessment: Chart Reviewed Documented by User: Karla Tyler MD 06/01/23 07:45 HPI - Anesthesia Eval Consult details Narrative: 53yo M for Colonoscopy, Poss Polypectomy super morbid obesity PMFSH Past Medical History Medical History Diabetes Diverticulosis Family history of colon cancer Family history of pancreatic cancer HTN (hypertension) Morbid obesity Scrotal mass Family History Family History Sister Breast cancer Ovarian cancer Maternal Aunt Colon cancer Family/Other Colon cancer Brother Pancreatic cancer Family history of problems with anesthesia: No Surgical History History of Problems with Anesthesia: No Social History Social History Alcohol intake: unknown Patient Tobacco Use Status: Current everyday Tobacco user Tobacco use type: Cigarette Cigarettes Per Day: 10 Use of substances other than those prescribed or required for medical reasons: No Are you DNR?: No Advance Directives: No Advance Directives Information Provided: Yes Meds Allergies Allergy/AdvReac Type Severity Reaction Status Date / Time hazelnut Allergy Severe ANAPHYLAXIS Verified 03/14/23 10:01 meperidine [Demerol] Allergy Unknown Dizziness Verified 03/14/23 10:01 From TORADOL Allergy Unknown HIVES Uncoded 03/14/23 10:01 Home Medications Medication Instructions Recorded Confirmed Last Taken Type dulaglutide 0.75 mg/0.5 mL mg subcut 03/14/23 05/25/23 [facility] lisinopril 40 mg tablet 40 mg PO DAILY 03/14/23 06/01/23 Unknown History lorazepam 2 mg tablet 2 mg PO BEDTIME PRN Anxiety 03/14/23 06/01/23 Unknown History omeprazole 20 mg capsule,delayed 20 mg PO DAILY 03/14/23 06/01/23 Unknown History release empagliflozin 25 mg tablet 25 mg PO DAILY 06/01/23 06/01/23 Unknown History (Jardiance) Exam Airway Mallampati Class: III TM Dist: <=3cm Neck ROM: Limited Heart: rrr Lungs: wheezing pt given albuterol neb Assessment and Plan Assessment Anesthesia Assessment: Anesthesia Plan Discussed Final Anesthetic Review Family History of Problems with Anesthesia: No History of Problems with Anesthesia: No NPO: Yes ASA Class: III Final Preanesthetic Review: No Changes in Pt Med Stat, Meds/Allgs Chart Reviewed, Consent Obtained/Reviewed and Anes Risks/Benef Reviewed Patient Risk: High Procedure Risk: Low Anesthetic Plan Anesthetic Plan: MAC: Disposition: Standard PACU
[2023-06-01 07:13] VITALS: BP 103/61; PULSE 86; RESP 20; TEMP 35.9; O2SAT 95
[2023-06-01 07:14] LABS: Glucose, Whole Blood 315 mg/dL (60-115)
[2023-06-01] MEDS: Albuterol Sulfate (0.083%) 2.5 MG/3 ML VIAL.NEB INHALE (07:27)
[2023-06-01 07:30] VITALS: PULSE 84; RESP 16; O2SAT 95
--- NOTE | 2023-06-01 07:30 | PC.NURSE ---
pt with faint exp wheezes t.o. udn ordered by Dr. Iqbal and given by r.tCynthia. text to dr. tellez for blood sugar poc 315.
[2023-06-01] MEDS: Lactated Ringers 1,000 ML 100 ML IVCONT (07:40)
[2023-06-01] MEDS: Insulin Regular, Human 100 UNIT/ML 3 ML VIAL IVPUSH ×2 (07:48→07:53)
--- NOTE | 2023-06-01 07:55 | PC.NURSE ---
pt very anxious over iv start. 3rn's for comfort. poc 315 - gave 6 units total iv per dr. wright ( who ordered 5 units and 1 unit reg insulin iv), given as ordered. pt sitting at bedside mother had cardiac arrest x3 during surgery. anesthesiologist and rn's providing emotional support.
[2023-06-01] MEDS: Metoclopramide HCl 10 MG/2 ML VIAL IVPUSH (08:17)
[2023-06-01 08:29] LABS: Glucose, Whole Blood 329 mg/dL (60-115)
--- NOTE | 2023-06-01 08:38 | PC.NURSE ---
repeat poc 329 @ [id number]. dr. wright notified, no further rx. pt aware. now laying down, settling with anxiety.
--- NOTE | 2023-06-01 08:46 | MHC.SHP ---
Pre-Procedural Eval Section A Date of Service: 06/01/23 Section B Chief Complaint: Family history of malignant neoplasm of digestive Details of Present Illness: has family hx of colon ca, for screening Relevant Social History: None Present Medications: see Short Stay Collaborative assessment Medical History: Significant History (DM, obesity,) Allergies: Allergies Allergy/AdvReac Type Severity Reaction Status Date / Time hazelnut Allergy Severe ANAPHYLAXIS Verified 03/14/23 10:01 meperidine [Demerol] Allergy Unknown Dizziness Verified 03/14/23 10:01 From TORADOL Allergy Unknown HIVES Uncoded 03/14/23 10:01 Review of Systems Sugical H&P ROS: Negative: Constitution, Cardiovascular, Respiratory, Neurological, Psychiatric, Hem-Onc, Allergic/Immunologic, Gastrointestinal, Genitourinary, Musculoskeletal, Integumentary, Endocrine and Eyes/Ears/Nose/Throat Exam Surgical H&P Exam: Normal: HEENT, Normal: Heart, Normal: Lungs, Normal: Extremities, Normal: Abdomen, Normal: Skin and Normal: Neurological Plan Diagnosis/Plan: Unchanged I have reviewed the history and physical and performed a pertinent physical examination on my patient. No changes have occurred unless specified. Time Spent With Patient Time: Total time managing care of this patient today ____ minutes.
--- NOTE | 2023-06-01 09:18 | W.PM.OPN ---
Operative Note Operative Note Date of Service: 06/01/23 Narrative: Preop diagnosis: Family history of colon cancer Postop diagnosis: 1. Polyp, about 5 mm, in the right colon closer to the hepatic flexure, removed with multiple bites of the cold forceps 2. polyp, about 3 mm, 35 cm, removed with cold forceps 3. scattered diverticuli throughout the sigmoid and left colon 4. internal and external hemorrhoids Procedure: Colonoscopy with polypectomy using cold forceps x2 the patient is a 53-year-old male here for screening colonoscopy. He did have a significant family history of colon cancer. He understood the technique of the planned procedure as well as the risks, benefits, and alternatives. He was brought to the operating room. He was placed in left lateral decubitus position under monitored anesthesia care. A full digital rectal exam was done. There was note of prominent internal external hemorrhoids. The tip of the Olympus colonoscope was gently introduced through the anal orifice and advanced with insufflation older to cecum. The cecum was intubated. The cecum was identified via visualization of the ileocecal valve as well as the appendiceal orifice. The cecal mucosa was unremarkable. The scope was gradually withdrawn with careful examination of the entire colonic mucosa being done with scope withdrawal. The patient had adequate bowel prep so it was unlikely that any lesion may have been missed. In the right colon towards the hepatic flexure was note of a 5 mm polyp. This was removed using multiple biopsy bites of the cold forceps. There was note of good hemostasis. There was note of scattered the views diverticulosis on the left colon and sigmoid. There was note of a small polyp about 2-3 mm at level 35 cm. There was removed using cold forceps. The rest of the distal sigmoid and rectum were unremarkable. There was note of prominent internal and external hemorrhoids without any other lesions. The scope was then withdrawn completely with desufflation. The patient tolerated the procedure well . There were no immediate complications . Depending on the path report, I would recommend another colonoscopy within the next 5 years.
[2023-06-01 09:28] VITALS: BP 105/59; PULSE 76; RESP 16; TEMP 36.1; O2SAT 94
[2023-06-01 09:29] LABS: Glucose, Whole Blood 276 mg/dL (60-115)
[2023-06-01 09:45] VITALS: BP 107/65; PULSE 78; RESP 18; TEMP 36.1; O2SAT 95
== END 2023-06-01 12:00 | disposition home or self-care (01) ==
PROVIDERS: PCP Family Medicine; Visit Provider Surgery
PROC: 0DJD8ZZ Inspection of Lower Intestinal Tract, Via Natural or Artificial Opening Endoscopic (ICD-10-PCS; CPT 45378; principal; 2023-06-01 08:30)
DX: Z12.11 Encounter for screening for malignant neoplasm of colon (principal); Z80.0 Family history of malignant neoplasm of digestive organs; D12.2 Benign neoplasm of ascending colon; K63.5 Polyp of colon; K57.30 Diverticulosis of large intestine without perforation or abscess without bleeding; K64.8 Other hemorrhoids; K64.4 Residual hemorrhoidal skin tags; E11.9 Type 2 diabetes mellitus without complications; I10 Essential (primary) hypertension; N50.9 Disorder of male genital organs, unspecified; E66.01 Morbid (severe) obesity due to excess calories; Z68.42 Body mass index [BMI] 45.0-49.9, adult; Z79.85 Long-term (current) use of injectable non-insulin antidiabetic drugs; Z79.84 Long term (current) use of oral hypoglycemic drugs; Z79.899 Other long term (current) drug therapy; Z88.8 Allergy status to other drugs, medicaments and biological substances; F17.210 Nicotine dependence, cigarettes, uncomplicated
CPT/HCPCS: 45380; 82947; 88305; 94640; J2250; J2370; J2371; J2765

== ENCOUNTER → 2023-06-01 06:41 | Outpatient (BNV) | payer OTHER, SELFPAY | PROVIDERS: PCP Family Medicine; Visit Provider Surgery | DX: Z12.11 Encounter for screening for malignant neoplasm of colon (principal); Z86.010 Personal history of colon polyps; K63.5 Polyp of colon; K57.30 Diverticulosis of large intestine without perforation or abscess without bleeding; K64.8 Other hemorrhoids | CPT/HCPCS: 45380 ==

== ENCOUNTER 2023-06-28 10:12 | Outpatient (AMB) | payer OTHER, SELFPAY ==
--- NOTE | 2023-06-28 10:24 | MHC.OFFVIS ---
Intake Intake Visit Reasons: S/P Colonoscopy Intake Note: This patient presents for a follow-up assessment status post colonoscopy. Patient reports no complaints at this time pertaining to colonoscopy. 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 He is here to discuss the results He denies any significant complaints at this time. He says he tolerated the procedure well. [facility] Medical History (Updated 06/28/23 @ 10:28 by Rubén Patino MD) Diabetes Diverticulosis Family history of colon cancer Family history of pancreatic cancer HTN (hypertension) Morbid obesity Scrotal mass Tubular adenoma of colon Surgical History (Updated 06/28/23 @ 10:28 by Rupal Saha Mario) History of colonoscopy Family History Sister Breast cancer Ovarian cancer Maternal Aunt Colon cancer Family/Other Colon cancer Brother Pancreatic cancer Social History Alcohol intake: unknown Patient Tobacco Use Status: Current everyday Tobacco user Tobacco use type: Cigarette Cigarettes Per Day: 10 Review of Systems Const Denies chills and Denies fever(s) Card Denies chest pain, Denies dyspnea and Denies dyspnea on exertion Resp Denies cough, Denies dyspnea and Denies dyspnea on exertion GI Denies hematochezia and Denies change in bowel habits Denies hematuria and Denies difficulty urinating Musc Denies back pain and Denies limited range of motion Neuro Denies focal weakness and Denies convulsions Psych Denies depression and Denies mood swings Physical Exam Const Other: Morbidly obese General: comfortable and no acute distress Resp Effort & Inspection: normal respiratory effort GI Palpation (GI): Soft to palpation, not firm and nontender Assessment & Plan Assessment & Plan (1) Family history of colon cancer: Code(s): Z80.0 - Family history of malignant neoplasm of digestive organs Plan: Status post colonoscopy. He had 2 small polyps removed. One was a tubular adenoma and another 1 was hyperplastic polyp He also had diverticulosis as well as hemorrhoids His next colonoscopy may be in the next 5 years in view of his family history. (2) Tubular adenoma of colon: Code(s): D12.6 - Benign neoplasm of colon, unspecified Plan: This was a small tubular adenoma which was removed with forceps. His next colonoscopy may be in the next 5 years. Coding Level of Care Code Est Pt Level 2 (53801) Diagnoses Family history of colon cancer Z80.0 Tubular adenoma of colon D12.6
== END 2023-06-28 10:33 | disposition home or self-care (01) ==
PROVIDERS: Visit Provider Surgery
DX: Z80.0 Family history of malignant neoplasm of digestive organs (principal); D12.6 Benign neoplasm of colon, unspecified
CPT/HCPCS: 99212

== ENCOUNTER → 2023-06-28 10:12 | Outpatient (BNVA) | payer OTHER, SELFPAY | PROVIDERS: Visit Provider Surgery | DX: D12.6 Benign neoplasm of colon, unspecified (principal); K63.5 Polyp of colon; Z80.0 Family history of malignant neoplasm of digestive organs; Z98.890 Other specified postprocedural states | CPT/HCPCS: 99212 ==

== ENCOUNTER 2023-07-18 09:47 | Outpatient (AMB) | payer OTHER, SELFPAY ==
--- NOTE | 2023-07-18 09:56 | A.OFFVIS_ITS ---
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 Accompanied by: Self / Same As Patient Allergies hazelnut Allergy (Severe, Verified 07/18/23 22:43) ANAPHYLAXIS meperidine [Demerol] Allergy (Unknown, Verified 07/18/23 22:43) Dizziness From TORADOL Allergy (Unknown, Uncoded 07/18/23 22:43) HIVES Medication List - Last Reconciled 07/18/23 by OBINNA Norris betamethasone dipropionate 0.05% 1 appl topical BID 30 days clotrimazole 1% 1 appl topical BID 2 weeks dulaglutide (Trulicity) mg subcut empagliflozin (Jardiance) 25 mg PO DAILY lisinopril 40 mg PO DAILY lorazepam 2 mg PO BEDTIME PRN omeprazole 20 mg PO DAILY HPI HPI Comments History of Present Illness Details Cholo is a pleasant 53-year-old male patient of Dr. Henry. He has a past medical history of obesity, diabetes, hypertension, and diverticulosis. He presents to the office today as a new patient for phimosis and right-sided hydrocele. In discussion with the patient today reports to be doing and feeling well. He reports recently following up with his PCP regarding ongoing issues with the foreskin of his penis at which time recommendations were made for urology referral for phimosis. In assessment of the patient today patient uncircumcised and prepuce is difficult to retract over the penile g land. Foreskin appears reddened and large right hydrocele present. When asked patient reports hydrocele to have been present for approximately 20 years. He denies any testicular and or scrotal pain. He otherwise denies any issues with his urination. He denies urinary urgency, urinary frequency, incontinence, nocturia, hematuria, dysuria, foul smelling urine, changes to urinary stream, flank pain, fever, and or chills. He is happy with his current voiding parameters. Discussed at length circumcision and hydrocelectomy. Discussed risks and benefits of surgical procedure verses surveillance monitoring. Discussed at length importance of managing diabetes for healing as well as overall health and well-being. Will obtain A1c for further assessment evaluation. When asked patient reports he believes A1c to be elevated. However, in review of patient's chart it appears last A1c in 2019 9.7. Discussed importance of decreasing A1c for surgical intervention as well as for overall health and well-being. 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 [facility] Medical History Tubular adenoma of colon Family history of pancreatic cancer Family history of colon cancer Morbid obesity Diabetes HTN (hypertension) Scrotal mass Diverticulosis Surgical History History of colonoscopy Family History Sister Breast cancer Ovarian cancer Maternal Aunt Colon cancer Family/Other Colon cancer Brother Pancreatic cancer Social History Alcohol intake: unknown Patient Tobacco Use Status: Current everyday Tobacco user Tobacco use type: Cigarette Cigarettes Per Day: 10 Review of Systems Const Reports no additional complaints Eyes Reports no additional complaints ENT Reports no additional complaints Card Reports as per HPI Resp Reports no additional complaints GI Reports as per HPI Reports as per HPI Musc Reports no additional complaints Neuro Reports no additional complaints Psych Reports no additional complaints Endo Reports as per HPI Physical Exam Const General: cooperative, healthy appearing, comfortable, no acute distress, well developed, alert and awake Nutritional Appearance: overweight Orientation/consciousness: patient oriented x3 Limitations: no limitations HEENT Head: Yes normal to inspection, Yes normocephalic and Yes atraumatic Ears: hearing grossly normal bilaterally Eyes General: appearance normal, both eyes and all related structures Neck Neck: Yes normal visual inspection and Yes trachea midline Chest Chest palpation & inspection: normal inspection of the chest Resp Effort & Inspection: normal respiratory effort and able to speak in complete sentences Cardio Rate: regular rate GI Inspection: Yes normal to inspection General: Yes no CVA tenderness Penis: uncircumcised and phimosis Scrotum: Hydrocele present (large right hydrocele) Back/Spine/Pelvis Back: no CVA tenderness Skin General skin exam: no rashes or lesions noted Neuro General: patient oriented x3 Extrem General: Yes normal to inspection Psych Appearance: grossly normal and well kempt Mental Status: mental status grossly normal Speech and movement: Normal speech and movement present and Clear speech present Affect: normal affect Attitude: cooperative Thought process: Normal thought process present Thought content: Normal thought content present Insight: Fair insight present (Psych) Judgement: Fair judgement present (Psych) Results AMB Urinalysis, Automated UA Leukoctes 0 Zain/uL Last Edit by Raúl Reich on 07/18/23 10:20 UA Nitrite Last Edit by Responsabrandon Reich on 07/18/23 10:20 UA Urobilinogen 0.2 mg/dL Last Edit by [facility] on 07/18/23 10:20 UA Protein 0 mg/dL Last Edit by [facility] on 07/18/23 10:20 UA pH 5.5 Last Edit by [employer] on 07/18/23 10:20 UA Blood 0 Sohail/uL Last Edit by [employer] on 07/18/23 10:20 UA Specific Lyman 1.010 Last Edit by [employer] on 07/18/23 10:20 UA Ketone Negative Last Edit by [employer] on 07/18/23 10:20 UA Bilirubin 0 mg/dL Last Edit by [facility] on 07/18/23 10:20 UA Glucose 1000 mg/dL Last Edit by [facility] on 07/18/23 10:20 Results Reviewed Results Reviewed: Laboratory Last Values Urine pH (Auto) 5.5 07/18/23 10:19 Specific Lyman (Auto) 1.010 07/18/23 10:19 Urine Protein (Auto) 0 mg/dL 07/18/23 10:19 Glucose (UA)(Auto) 1000 mg/dL 07/18/23 10:19 Urine Ketones (Auto) Negative 07/18/23 10:19 Urine Blood (Auto) 0 Sohail/uL 07/18/23 10:19 Urine Bilirubin (Auto) 0 mg/dL 07/18/23 10:19 Urine Urobilinogen (Auto) 0.2 mg/dL 07/18/23 10:19 Leukocyte Esterase (Auto) 0 Zain/uL 07/18/23 10:19 Date of Service: 04/20/22 EXAMINATION: US SCROTUM CLINICAL INFORMATION: Scrotal mass. COMPARISON: Scrotal ultrasound 06/29/2021 and 05/30/2012. TECHNIQUE: A sonogram of the scrotum was performed assessing duarte-scale appearance and color Doppler flow. Spectral Doppler analysis of the arterial and venous flow were performed in the testes bilaterally. FINDINGS: RIGHT: Right testicle measures 4.0 x 2.2 x 2.7 cm, volume 12.4 mL. There are right-sided small cysts measuring 0.4 x 0.4 x 0.4 cm, 0.4 x 0.3 x 0.4 cm and 0.4 x 0.4 x 0.5 cm. Spectral Doppler analysis of the arterial and venous flow is normal in the right testis. Right epididymal head is normal in size. Small anechoic cyst seen in the epididymal head measuring 0.158 cm. No right varicocele is seen. Right epididymal Doppler flow is normal. There is large right hydrocele measuring approximately 7.3 x 2.7 x 6.9 cm. LEFT: Left testicle measures 3.9 x 2.2 x 2.8 cm, volume 12.6 mL. There a small cysts measuring 0.3 x 0.3 x 0.3 cm and 0.1 x 0.1 x 0.1 cm. Spectral Doppler analysis of the arterial and venous flow is normal in the left testis. Left epididymal head is unremarkable except for small cysts measuring 0.4 x 0.4 x 0.5 cm, 0.4 x 0.4 x 0.3 cm and 0.3 x 0.5 x 0.3 cm. No left varicocele is seen. Left epididymal Doppler flow is normal. IMPRESSION: Bilateral epididymal cysts and bilateral testicular cysts. There is normal scrotal arteriovenous flow to both testes and epididymides. There is large right hydrocele. A few left epididymal head cysts are noted. Assessment & Plan Assessment & Plan (1) Hydrocele: Code(s): N43.3 - Hydrocele, unspecified (2) Phimosis: Code(s): N47.1 - Phimosis Plan In office urinalysis results reviewed with the patient today. Discussed obtaining hemoglobin A1c level for further assessment evaluation. Discussed importance of maintaining diabetes for overall health and well-being. Start betamethasone as discussed and prescribed. Discussed at length circumcision and right-sided hydrocelectomy; discussed risks and benefits of surgical intervention verses surveillance monitoring Patient denies any bothersome urinary issues at this time Follow-up in 3 months with lab to be completed prior; or sooner with any issues, concerns, and or questions. Orders: Orders Hemoglobin A1c 3 Months E11.9 - Type 2 diabetes mellitus without complications AMB Urinalysis Automated Today Z13.9 - Encounter for screening, unspecified Hemoglobin A1c Today E11.9 - Type 2 diabetes mellitus without complications Medications: New betamethasone dipropionate 0.05% Thin coat 2 times per day 1 appl topical BID 30 days 15 grams 1RF Q55.69 - Other congenital malformation of penis Patient Instructions: The patient had an opportunity to ask questions regarding the treatment plan. All questions were answered. Physical exam, labs, and imaging were discussed and reviewed in detail. As well as risks, benefits, and discussion of treatment choices. No major barriers to understanding were identified. The patient expressed understanding and agreement with the above treatment plan. The patient was made aware they should contact our office by phone for worsening of their current condition, the appearance of new symptoms, or with any questions or concerns. Compliance is encouraged with any medications and follow up testing that is ordered. It is a privilege to be allowed the opportunity to participate in? your urological care.? Again, if you have any questions or concerns If you have any questions or concerns please do not hesitate to contact me. The office is [phone]. This note is constructed using voice recognition software. While every effort has been made to ensure accuracy shank rander errors may have been included. Yours sincerely, OBINNA Norris Coding Level of Care Code New Pt Level 4 (53061) Diagnoses Hydrocele N43.3 Phimosis N47.1
== END 2023-07-18 11:20 | disposition home or self-care (01) ==
PROVIDERS: PCP Family Medicine; Visit Provider Nurse Practitioner Family
DX: N43.3 Hydrocele, unspecified (principal); N47.1 Phimosis
CPT/HCPCS: 99204

== ENCOUNTER → 2023-07-18 09:47 | Outpatient (BNVA) | payer OTHER, SELFPAY | PROVIDERS: PCP Family Medicine; Visit Provider Nurse Practitioner Family | DX: N43.3 Hydrocele, unspecified (principal); N47.1 Phimosis | CPT/HCPCS: 81003 ==

== ENCOUNTER 2023-10-08 08:58 | Outpatient (AMB) | payer OTHER, SELFPAY ==
--- NOTE | 2023-10-08 08:59 | MHC.OFFVIS ---
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 Intake Note: New patient dx HTN feeling good Nursing Home Assistant Required: No Allergies hazelnut Allergy (Severe, Verified 07/18/23 22:43) ANAPHYLAXIS meperidine [Demerol] Allergy (Unknown, Verified 07/18/23 22:43) Dizziness From TORADOL Allergy (Unknown, Uncoded 07/18/23 22:43) HIVES Medication List - Last Reconciled 10/08/23 by Milo Wolf MD betamethasone dipropionate 0.05% 1 appl topical BID 30 days clotrimazole 1% 1 appl topical BID 2 weeks dulaglutide (Trulicity) mg subcut empagliflozin (Jardiance) 25 mg PO DAILY lisinopril 40 mg PO DAILY lorazepam 2 mg PO BEDTIME PRN metoprolol succinate ER 25 mg PO DAILY omeprazole 20 mg PO DAILY HPI HPI Comments History of Present Illness Details Cholo was referred here for management of hypertension. He says out his blood pressures been well controlled on current therapy. He is currently having issues with management of diabetes with still elevated sugar levels. Currently on 2 medications to manage his diabetes. He has no symptoms. Currently denies any symptoms exertional chest pain or shortness of breath. He takes care of his mom and is involved with that and also goes for walks. However he wants to intensive eyes exercise program. He denies any prolonged palpitations or irregular heartbeat. He denies any heart failure symptoms. [facility] Medical History (Updated 10/08/23 @ 09:25 by Milo Wolf MD) Tubular adenoma of colon Family history of pancreatic cancer Family history of colon cancer Morbid obesity Diabetes HTN (hypertension) Scrotal mass Diverticulosis Surgical History History of colonoscopy Family History Sister Breast cancer Ovarian cancer Maternal Aunt Colon cancer Family/Other Colon cancer Brother Pancreatic cancer Social History Alcohol intake: unknown Patient Tobacco Use Status: Current everyday Tobacco user Tobacco use type: Cigarette Cigarettes Per Day: 10 Review of Systems Const Denies chills, Denies daytime sleepiness, Denies fatigue, Denies fever(s), Denies frequent falls, Denies poor appetite, Denies snoring, Denies stops breathing during sleep, Denies weakness, Denies weight gain and Denies weight loss Eyes Denies loss of vision ENT Denies dizziness and Denies hearing loss Card Denies chest pain, Denies claudication, Denies leg edema, Denies lightheadedness, Denies palpitations, Denies dyspnea, Denies dyspnea on exertion and Denies orthopnea Resp Denies cough, Denies excessive phlegm production, Denies dyspnea, Denies dyspnea on exertion, Denies snoring and Denies wheezing GI Denies abdominal pain, Denies hematochezia, Denies change in bowel habits, Denies nausea and Denies vomiting Denies dysuria and Denies urinary frequency Musc Denies arthralgias, Denies muscle weakness, Denies numbness and Denies other (frequent falls) Skin/Breast Denies nail changes and Denies rash Neuro Denies Abnormal speech present, Denies dizziness, Denies frequent falls, Denies loss of vision, Denies memory loss, Denies numbness and Denies weakness Psych Denies depression and Denies memory loss Endo Denies fatigue and Denies palpitations Wojciech/Lymph Reports easy bruising and Reports other (anemia) Aller/Immun Denies wheezing Physical Exam Vital Signs: Last Vital Signs Pulse 97 10/08/23 09:00 BP 132/76 10/08/23 09:00 BMI result Body Mass Index 43.1 Const General: cooperative, comfortable, no acute distress, alert, awake and Physically active Nutritional Appearance: obese morbidly obese Orientation/consciousness: patient oriented x3 Limitations: no limitations HEENT Head: Yes normocephalic and Yes atraumatic Neck Neck: Yes trachea midline, Yes supple and Yes no JVD Resp Effort & Inspection: normal respiratory effort Auscultation: clear to auscultation bilaterally Cardio Jugular venous distension: no JVD Palpation: normal PMI Rate: regular rate Rhythm: regular rhythm Heart sounds: S1 normal heart sound present, S2 normal heart sound present, no click, no gallops, no murmurs and no rubs GI Auscultation: normal bowel sounds Skin General skin exam: no rashes or lesions noted Neuro General: patient oriented x3 and no focal motor deficits Speech: No Abnormal speech present Extrem General: Yes no clubbing, cyanosis or edema Office Procedures EKG Details: EKG shows normal sinus rhythm with normal EKG [id number], Complete Assessment & Plan Assessment & Plan (1) HTN (hypertension): Code(s): I10 - Essential (primary) hypertension Plan: Patient 53-year-old male with hypertension which is well controlled on today's exam and says at home is measurements also well controlled. Continue current therapy importance of good blood pressure control was discussed. Advised heart healthy lifestyle and participate in weight loss program and low-salt diet. Main issue is diabetes management. His sugar is still seem to be elevated. He may benefit from continuous glucose monitoring to guide with his dietary habits as well as weight loss program. Goal hemoglobin A1c less than 7%. Also patient with diabetes and as per ACC/aha guidelines high risk for future cardiovascular events and should consider statin therapy. Advised lipid panel in near future and will consider at least moderate intensity statin therapy which to pursued through your office. Goal LDL less than 70 mg/dL. Advise vascular inflammatory markers with high sensitive C-reactive protein in the future as well. There is no indication for any other workup. He has baseline EKG is normal. He is not having any exertional symptoms. Advised to call me if he develops any new symptoms. Will follow up in the clinic if need be. Thank you for allowing me to partake in his care Coding Level of Care Code New Pt Level 3 (34764) Diagnoses HTN (hypertension) I10 CPT Codes EKG - CPT: 93078-[id number], Complete ([id number])
[2023-10-08 09:00] VITALS: BP 132/76; PULSE 97; BMI 43.1
== END 2023-10-08 09:51 | disposition home or self-care (01) ==
PROVIDERS: PCP Family Medicine; Referring Provider Family Medicine; Visit Provider Internal Medicine Cardiovascular Disease
DX: I10 Essential (primary) hypertension (principal)
CPT/HCPCS: 93010; 99203

== ENCOUNTER → 2023-10-08 08:58 | Outpatient (BNVA) | payer OTHER, SELFPAY | PROVIDERS: PCP Family Medicine; Referring Provider Family Medicine; Visit Provider Internal Medicine Cardiovascular Disease | DX: I10 Essential (primary) hypertension (principal) | CPT/HCPCS: 93005; 99202 ==

== ENCOUNTER 2024-02-12 11:35 | Outpatient (REF) | payer OTHER, SELFPAY | END 2024-02-12 11:36 | disposition home or self-care (01) | LOC: HO.HHCL 11:35 | PROVIDERS: Visit Provider Family Medicine | DX: Z13.89 Encounter for screening for other disorder (principal) ==

== ENCOUNTER 2024-03-11 08:55 | Outpatient (REF) | payer OTHER, SELFPAY ==
[2024-03-11 12:12] LABS: Estimated Average Glucose 223 mg/dL; Hemoglobin A1c % 9.4 % (<6.0)
[2024-03-11 12:25] LABS: Cholesterol 152 mg/dL (<200); HDL Cholesterol 37 mg/dL (>40); LDL Cholesterol Calculated 88 mg/dL (<100); Triglycerides 138 mg/dL (<150)
[2024-03-12 16:18] LABS: CRP High Sensitivity 1.4 mg/L
== END 2024-03-11 08:56 | disposition home or self-care (01) ==
LOC: HO.HHCL 08:55
PROVIDERS: Internal Medicine Cardiovascular Disease; Visit Provider Nurse Practitioner Family
DX: E11.9 Type 2 diabetes mellitus without complications (principal); I10 Essential (primary) hypertension
CPT/HCPCS: 36415; 80061; 83036; 86141

== ENCOUNTER 2024-03-12 09:35 | Outpatient (REF) | payer OTHER, SELFPAY ==
--- NOTE | ~2024-03-12 | US_ITS ---
EXAMINATION: US COMPLETE ABDOMEN WITH LIVER ELASTOGRAPHY CLINICAL INFORMATION: Obesity. COMPARISON: CT abdomen and pelvis dated 12/16/2022; abdominal ultrasound dated 07/17/2017. TECHNIQUE: Real-time imaging of the abdominal viscera. Noninvasive ultrasound liver fibrosis assessment is performed using Lin ElastPQ point quantification shear wave elastography (2D-SWE) with a C5-2 MHz transducer. Multiple elastography samples are obtained. FINDINGS: PANCREAS: Normal. The visualized pancreatic head and body are normal in appearance. The remainder of the pancreas is obscured from visualization by the overlying bowel gas. ABDOMINAL AORTA: The proximal, middle, and distal aortic segments are normal in caliber. INFERIOR VENA CAVA: Visualized portions are normal. LIVER: The liver demonstrates normal contour and generally increased echogenicity. No focal lesion or intrahepatic biliary duct dilatation. The right lobe measures 18.1 cm in length. The left lobe measures 12.4 cm in length. Portal flow is towards the liver (hepatopetal). Shear wave liver elastography median stiffness is 1.07 m/s (reference: normal median stiffness is 1.3 m/s or less). IQR/median stiffness to assess sampling precision is 0.16 (reference: good quality data set is IQR/median stiffness of 0.15 or less). GALLBLADDER: Normal. The gallbladder is physiologically distended without evidence of stones, sludge, polyps, wall thickening or pericholecystic fluid. COMMON BILE DUCT: Normal in caliber measuring 0.4 cm in diameter. RIGHT KIDNEY: Normal. No hydronephrosis. No renal calculi or focal parenchymal lesions. The kidney measures 10.3 cm in maximum dimension. LEFT KIDNEY: At the upper pole, a 2.7 cm in maximal diameter benign, simple cyst is seen, for which no imaging follow-up is recommended. No hydronephrosis. No renal calculi or focal parenchymal lesions. The kidney measures 10.9 cm in maximum dimension. SPLEEN: Normal. The spleen measures 11.3 cm in maximum dimension. FREE FLUID: None. US/US abdomen comp w elastography IMPRESSION: 1. There is mild hepatomegaly. 2. There is generalized increase in hepatic echotexture, consistent with fatty infiltration or hepatocellular disease. Please correlate clinically. No focal hepatic mass or intrahepatic biliary dilatation is seen. 3. Liver elastography: Although measurements suggest a high probability of normal liver stiffness, there is statistical variability of the sampling which decreases accuracy. REFERENCE: Society of Radiologists in Ultrasound Liver Stiffness Thresholds (2020): LIVER STIFFNESS THRESHOLDS: *Liver Stiffness equal or less than 1.3 m/s: High probability of being normal. *Liver Stiffness less than 1.7 m/s: In the absence of other known clinical signs, rules out compensated advanced chronic liver disease. *Liver Stiffness 1.7-2.1 m/s: Suggestive of compensated advanced chronic liver disease but need further test for confirmation. *Liver Stiffness over 2.1 m/s: Rules in compensated advanced chronic liver disease. *Liver Stiffness over 2.4 m/s: Suggestive of clinically significant portal hypertension. QUALITY OF DATA SET: *IQR/Median value equal or less than 0.15 implies a quality data set. *IQR/Median value over 0.15 implies a poor quality data set. SIGNIFICANT CHANGE FROM PRIOR EXAM: Significant change if liver stiffness measurement is 10% or greater from prior exam. OTHER CONSIDERATIONS: The stage of liver fibrosis may be overestimated in the setting of acute hepatitis, liver inflammation, elevated liver function tests, hepatic vascular congestion, obstructive cholestasis, non-fasting state, and infiltrative diseases such as amyloidosis and lymphoma. In some patients with NAFLD, the liver stiffness thresholds for compensated advanced chronic liver disease may be lower. In causes other than viral hepatitis and NAFLD, liver stiffness thresholds are not well established.
== END 2024-03-12 09:36 | disposition home or self-care (01) ==
LOC: HO.US 09:35
PROVIDERS: PCP Family Medicine; Visit Provider Family Medicine
DX: K76.0 Fatty (change of) liver, not elsewhere classified (principal)
CPT/HCPCS: 76700; 76981

== ENCOUNTER → 2024-08-23 22:04 | Outpatient (BNV) | payer OTHER, SELFPAY | PROVIDERS: Emergency Provider Emergency Medicine; PCP Family Medicine; Visit Provider Internal Medicine | DX: R94.31 Abnormal electrocardiogram [ECG] [EKG] (principal) | CPT/HCPCS: 93010 ==

== ENCOUNTER 2024-08-23 22:07 | Emergency (ER) | payer OTHER, SELFPAY ==
--- NOTE | 2024-08-23 | ECG_ITS ---
Test Reason : CHEST PAIN Blood Pressure : / mmHG Vent. Rate : 078 BPM Atrial Rate : 078 BPM P-R Int : 184 ms QRS Dur : 098 ms QT Int : 370 ms P-R-T Axes : 038 -23 018 degrees QTc Int : 421 ms Normal sinus rhythm cannot exclude old Inferior infarct ; could be normal variant Abnormal ECG When compared with ECG of 23-APR-2018 10:02, No significant changes seen Referred By: Generic ED Physician Electronically Signed By:CRISPIN BACH
--- NOTE | ~2024-08-23 | CT_ITS ---
EXAMINATION: CT HEAD WITHOUT CONTRAST (STROKE PROTOCOL) CLINICAL INFORMATION: Stroke protocol. COMPARISON: None available. TECHNIQUE: Contiguous axial imaging was performed from the skull base to vertex without intravenous administration of contrast. Sagittal and coronal reformatted images also obtained. This CT examination was performed using dose optimization techniques as appropriate, variously including the following: *Automated exposure control *Adjustment of mA and/or kV according to patient size (this includes techniques or standardized protocols for targeted exams where dose is matched to indication/reason for exam; i.e. extremities or head) *Use of iterative reconstruction technique DLP: 768 mGy-cm FINDINGS: The lateral, third and fourth ventricles are normally outlined. The cortical sulci and basal cisterns are normally outlined as well. There is no acute territorial defect, hemorrhage or midline shift. The extra-axial spaces are unremarkable. Calvarium/scalp: Intact. Maxillofacial sinuses and mastoids: There is a left maxillary sinus opacity. The remaining visualized maxillofacial sinuses and mastoids are clear. CT/CT head for stroke IMPRESSION: 1. No acute intracranial pathology. 2. Left maxillary sinus disease. This critical result was discussed with Maximo Campuzano at at 11:36 PM hours on August 23, 2024. It was ascertained that the content and urgency of the report was understood at the time of direct communication. Electronically signed by: Garret Giraldo MD 08/23/2024 11:47 PM EDT
--- NOTE | ~2024-08-23 | CT_ITS ---
EXAMINATION: CTA NECK WITH CONTRAST (STROKE) CTA BRAIN WITH CONTRAST (STROKE) CLINICAL INFORMATION: Suspect acute stroke. Assess for major vessel occlusion. Please call report. COMPARISON: None available. TECHNIQUE: CTA of the head and neck was performed in the axial plane from the mediastinum to the skull vertex using 75 mL Omnipaque 350 intravenous contrast. Additional reformatted multiplanar images including maximum intensity projection MIP images are generated on the CT workstation. This CT examination was performed using dose optimization techniques as appropriate, variously including the following: *Automated exposure control *Adjustment of mA and/or kV according to patient size (this includes techniques or standardized protocols for targeted exams where dose is matched to indication/reason for exam; i.e. extremities or head) *Use of iterative reconstruction technique DLP: 1601 mGy-cm FINDINGS: The degree of stenosis determined by criteria similar to NASCET. Brain: The lateral, third and fourth ventricles are normally outlined. The cortical sulci and basal cisterns are normally outlined as well. There is no acute territorial defects, hemorrhage or midline shift. The extra-axial spaces are unremarkable. Calvarium/scalp: Intact. Maxillofacial sinuses and mastoids: There is a left maxillary sinus opacity. The remaining visualized maxillofacial sinuses and mastoids are clear. Chest CTA: There is mild atherosclerotic plaque of the aortic arch. A three-vessel branch pattern from the aortic arch is noted. The aorta is arch branch vessels are patent. The upper lung rivers are clear. Neck CTA: Motion slightly limits evaluation at the carotid bifurcation. The common carotid, internal and external carotid arteries are patent. The vertebral arteries are codominant and both patent. Brain CTA: There is mild atherosclerotic plaque of the intracranial internal carotid arteries without significant narrowing. The bilateral anterior and middle cerebral arteries are patent. The distal vertebral arteries, basilar artery and branches as well as posterior cerebral arteries are patent. There is no evidence for aneurysm. CT/CT angio head neck stroke IMPRESSION: 1. No acute territorial infarct or hemorrhage. 2. No evidence of vascular occlusion or significant stenosis. Electronically signed by: Garret Giraldo MD 08/24/2024 12:24 AM EDT
[2024-08-23 22:12] VITALS: BP 137/85; PULSE 82; RESP 18; TEMP 36.7; O2SAT 96; BMI 41.1
[2024-08-23 22:29] LABS: MANUAL DIFF FLAG NO
[2024-08-23 22:31] LABS: Basophils Absolute Auto 0.1 X10*3/uL (0.0-0.2); Basophils Percent Auto 0.6 % (0-2); Eosinophils Absolute Auto 0.2 X10*3/uL (0.0-0.4); Eosinophils Percent Auto 2.1 % (0-4); Hematocrit 46.9 % (42.0-52.0); Hemoglobin 15.8 g/dl (14.0-18.0); Imm Gran Abs Auto 0.03 X10*3/uL (0.00-0.03); Imm Gran Pct Auto 0.3 % (0.0-0.4); Lymphocytes Absolute Auto 3.4 X10*3/uL (1.2-4.9); Lymphocytes Percent Auto 31.3 % (20-40); Mean Corpuscular HGB Conc 33.7 g/dl (31.0-36.0); Mean Corpuscular Hemoglobin 32.2 pg (27.0-33.0); Mean Corpuscular Volume 95.5 fL (80.0-98.0); Monocytes Absolute Auto 0.7 X10*3/uL (0.1-1.2); Monocytes Percent Auto 6.5 % (2-11); Neutrophils Absolute Auto 6.4 x10*3/uL (2.0-8.3); Neutrophils Percent Auto 59.2 % (45-73); Platelet Count 266 X10*3/uL (160-400); Red Blood Count 4.91 X10*6/uL (4.60-5.80); Red Cell Distribution Width 12.6 % (11.0-16.0); White Blood Count 10.9 X10*3/uL (4.8-10.8)
[2024-08-23 22:34] VITALS: BP 127/69; PULSE 76; RESP 14; TEMP 36.2; O2SAT 96
[2024-08-23 22:39] LABS: INTERNATIONAL NORM RATIO 0.8 (0.9-1.1); Prothrombin Time 9.8 SEC (10.9-12.4)
[2024-08-23 22:44] LABS: Alanine Aminotransferase 36 U/L (0-40); Alkaline Phosphatase 73 U/L (39-117); Anion Gap 12 (12-20); Aspartate Amino Transferase 27 U/L (5-37); Bilirubin Total 0.2 mg/dL (0.0-1.0); Blood Urea Nitrogen 16 mg/dL (9-16); Calcium 8.9 mg/dL (8.4-10.2); Carbon Dioxide 25 mmol/L (22-29); Chloride 110 mmol/L (96-108); Creatinine Clr Calc Pharmacy 130.1; Estimated Glomerular Filt Rate > 60; Glucose Random 144 mg/dL (60-115); Lipase 43 U/L (8-78); Magnesium 2.2 mg/dL (1.6-2.6); Potassium 3.8 mmol/L (3.3-5.1); Sodium 143 mmol/L (135-145); Total Protein 6.8 g/dL (6.5-8.0)
[2024-08-23 22:52] LABS: Troponin-I High Sensitivity < 2.7 ng/L (<3.5-35.0)
--- NOTE | 2024-08-23 23:00 | PC.NURSE ---
Addendum entered by Jewell Braden RN 08/24/24 02:01: Pt provided with education on strokes, signs and symptoms and call an ambulance if he believes he is having a stroke. Educated pt on the importance of following a healthy diet/lifestyle, continue to take medications to help control diabetes and BP. Pt encouraged to quit smoking. Pt verbalized understanding and reports that he is going to quit smoking. IV removed and pt discharged with discharge instructions and stroke packet education booklet. Original Note: Pt coming in from the waiting room, Pt reports that today at 0500 pt woke up to have coffee and smoke cigarette when he was having a pounding headache, numbness and tingling to L-face that radiated down neck and L-arm to fingers. Pt reports eating and normal activity throughout the day but sx resumed. Pt reporting headache 8/10. Slight left sided droop to mouth and slight weakness in left hand. GCS:15. Passed nurse adalgisa griffin. aware, after reported from chief pilot.
--- NOTE | 2024-08-23 23:22 | ED_ITS ---
HPI - Neuro Symptoms/Deficit General Chief Complaint: Neuro Symptoms/Deficit Stated Complaint: chest pain/left arm numbess/high bp Time Seen by Provider: 08/23/24 23:05 Source: patient, RN notes reviewed and old records reviewed Mode of arrival: ambulatory Limitations: no limitations History of Present Illness ED Provider: Tatianna HPI Narrative: 54-year-old male past medical history significant for hypertension,, tobacco dependence presents for evaluation of weakness. Patient that he went to bed around 3:00 a.m. this morning. He woke up around 5:00 a.m. with a headache, dizziness He reported numbness, tingling in the left side of his face and his left arm starting 4 hours later at 9:00 a.m. His headache has improved, it is now a dull, 2/10 He reports some weakness to both upper extremities He does not believe he has any trouble speaking today. He does not believe he has had any unilateral weakness He denies any chest pain, shortness of breath Related Data Home Medications ?Medication ?Instructions ?Recorded ?Confirmed dulaglutide 0.75 mg/0.5 mL mg subcut 03/14/23 10/08/23 subcutaneous pen injector (Trulicity) lisinopril 40 mg tablet 40 mg PO DAILY 03/14/23 10/08/23 lorazepam 2 mg tablet 2 mg PO BEDTIME PRN Anxiety 03/14/23 10/08/23 omeprazole 20 mg capsule,delayed 20 mg PO DAILY 03/14/23 10/08/23 release empagliflozin 25 mg tablet 25 mg PO DAILY 06/01/23 10/08/23 (Jardiance) metoprolol succinate 25 mg 25 mg PO DAILY 10/08/23 10/08/23 tablet,extended release 24 hr Previous Rx's ?Medication ?Instructions ?Recorded clotrimazole 1 % topical cream 1 appl topical BID 2 weeks #30 04/26/22 grams betamethasone dipropionate 0.05 % 1 appl topical BID 30 days #15 07/18/23 topical ointment grams Allergies Allergy/AdvReac Type Severity Reaction Status Date / Time hazelnut Allergy Severe ANAPHYLAXIS Verified 08/23/24 22:17 meperidine [Demerol] Allergy Unknown Dizziness Verified 08/23/24 22:17 From TORADOL Allergy Unknown HIVES Uncoded 09/13/23 22:43 Review of Systems 2 Constitutional: Constitutional: Denies body ache(s), Denies chills, Denies fever(s) and Reports headache(s) Eyes: Eyes: Denies blurry vision ENT: Denies dysphagia, Denies vertigo and Reports headache(s) Cardiovascular: Cardiovascular: Denies chest pain, Denies syncope and Denies dyspnea Respiratory: Respiratory: Denies cough and Denies dyspnea Gastrointestinal: Gastrointestinal: Denies abdominal pain, Denies dysphagia, Denies nausea and Denies vomiting Musculoskeletal: Musculoskeletal: Denies back pain, Reports numbness and Reports tingling Integumentary/Breasts: Skin/Breast: Denies rash Neurologic: Denies vertigo, Denies syncope, Reports headache(s), Reports numbness and Reports tingling Psychiatric: Psychiatric: Denies anxiety [facility] Past Medical History Medical History (Updated 08/24/24 @ 00:20 by Maximo Campuzano) PTSD (post-traumatic stress disorder) HTN (hypertension) Type 2 diabetes mellitus without complication Nicotine dependence, cigarettes, uncomplicated Morbid obesity Psoriasis GERD (gastroesophageal reflux disease) Diverticulosis Tubular adenoma of colon Family history of pancreatic cancer Family history of colon cancer Scrotal mass Surgical History (Updated 03/14/24 @ 15:22 by Crissy Johnson PA-C) History of colonoscopy Family History Family History Sister Breast cancer Ovarian cancer Maternal Aunt Colon cancer Family/Other Colon cancer Brother Pancreatic cancer Social History Social History Alcohol intake: never Patient Tobacco Use Status: Current everyday Tobacco user Tobacco use type: Cigarette Cigarettes Per Day: 10 Smoked in Last 30 Days: Yes Use of substances other than those prescribed or required for medical reasons: No Advance Directives: No Advance Directives Information Provided: No Do you have a plan to hurt others: No Plan Physical Exam 2 Vital Signs: Vital Signs: Last Vital Signs Temp 97.1 F 08/23/24 22:34 Pulse 76 08/23/24 22:34 Resp 14 08/23/24 22:34 BP 127/69 08/23/24 22:34 Pulse Ox 96 08/23/24 22:34 O2 Del Method Room Air 08/23/24 22:34 BMI result Body Mass Index 41.1 Const: General: healthy appearing, comfortable, no acute distress, alert and awake Nutritional Appearance: well nourished Orientation/consciousness: p atient oriented x3 HEENT: Head: Yes normocephalic and Yes atraumatic Eyes: Eyelids: Yes eyelids normal Conjunctivae: conjunctivae normal S clerae: sclerae normal Corneas: corneas normal Pupils: Equal, round and reactive pupils present EOM: EOMs intact bilaterally Neck: Neck: Yes full ROM Resp: Effort & Inspection: normal respiratory effort, able to speak in complete sentences and not labored Cardio: Rate: regular rate Rhythm: regular rhythm GI: Inspection: No distended Palpation (GI): Soft to palpation, not firm, nontender, no guarding and not rigid Skin: General skin exam: elasticity normal Neuro: Other: Patient has aquestionable facial droop in the left corner of his mouth. The patient appears to have global weakness to the bilateral upper and lower extremities that are equal bilaterally. He has 4/5 strength to major muscle groups of the upper and lower extremities bilaterally. General: patient oriented x3 Cranial nerves: Yes CN's II-XII intact bilaterally, Yes Equal, round and reactive pupils present and Yes Bilaterally intact EOM present Cognition (Neuro): normal cognition Course Reevaluation(s) Reevaluation #1: stroke protocol was called, as the patient has mild left sided facial droop and reported weakness with numbness, tingling. His NIH stroke score is a 1 currently for facial asymmetry. His last known well time was 3:00 a.m. this morning, he is well outside the window for TNK but is within the window for thrombectomy if there is a large vessel occlusion. Time: 23:23 Reevaluation #2: Patient's CT brain, CT angiographies do not show any evidence of stroke or high- grade stenosis. The patient reports that he has had significant stress and feels overwhelmed. This may be contributing to his symptoms with anxiety and tingling. The patient is requesting discharge to care for his mother, I feel it in his appropriate to discharge the patient at this time Time: 00:34 Medications Administered Discontinued Medications Generic Name Dose Route Start Last Admin Trade Name Freq PRN Reason Stop Dose Admin Iohexol 75 ml 08/23/24 23:53 08/23/24 23:53 Iohexol 350 Mg/Ml 100 Ml Infus..Btl IV 08/23/24 23:54 75 ml ONCE ONE Administration Medical Decision Making Medical Decision Making [facility] Narrative: 54-year-old male presents for evaluation of headache, dizziness, no this is an NIH stroke score of 1. He is well out of the window for TNK as his symptoms started somewhere between 3 and 5:00 a.m. with 3 am last known well time. Given that he has objective findings of left facial droop, a stroke protocol was ordered. Differential Diagnosis Differential Diagnoses: The differential diagnosis associated with the presentation includes Weakness CVA Fatigue Badillo's palsy Cervical radiculopathy Lab Data [facility] Lab Attestation statement: I reviewed the patient's lab results. Mild leukocytosis to 10.9 K. No anemia. Normal platelet count. No significant electrolyte abnormalities 08/23/24 22:23 08/23/24 22:23 Labs: Lab Results 08/23/24 Range/Units 22:23 WBC 10.9 H (4.8-10.8) X10*3/uL RBC 4.91 (4.60-5.80) X10*6/uL Hgb 15.8 (14.0-18.0) g/dl Hct 46.9 (42.0-52.0) % MCV 95.5 (80.0-98.0) fL MCH 32.2 (27.0-33.0) pg MCHC 33.7 (31.0-36.0) g/dl RDW 12.6 (11.0-16.0) % Plt Count 266 (160-400) X10*3/uL MPV 10.0 (9.4-12.4) fL Immature Gran % (Auto) 0.3 (0.0-0.4) % Neut % (Auto) 59.2 (45-73) % Lymph % (Auto) 31.3 (20-40) % Bowman % (Auto) 6.5 (2-11) % Eos % (Auto) 2.1 (0-4) % Baso % (Auto) 0.6 (0-2) % Lymph # (Auto) 3.4 (1.2-4.9) X10*3/uL Bowman # (Auto) 0.7 (0.1-1.2) X10*3/uL Eos # (Auto) 0.2 (0.0-0.4) X10*3/uL Baso # (Auto) 0.1 (0.0-0.2) X10*3/uL Abs Immat Gran (auto) 0.03 (0.00-0.03) X10*3/uL Absolute Neuts (auto) 6.4 (2.0-8.3) x10*3/uL Absolute Nucleated RBC 0.000 (0.0-0.012) X10*3/uL Nucleated RBC % (auto) 0.0 (0.0-0.2) /100WBC PT 9.8 L (10.9-12.4) SEC INR 0.8 L (0.9-1.1) Sodium 143 (135-145) mmol/L Potassium 3.8 (3.3-5.1) mmol/L Chloride 110 H (96-108) mmol/L Carbon Dioxide 25 (22-29) mmol/L Anion Gap 12 (12-20) BUN 16 (9-16) mg/dL Creatinine 0.75 (0.5-1.4) mg/dL Estim Creat Clear Calc 130.1 Estimated GFR > 60 Random Glucose 144 H (60-115) mg/dL Calcium 8.9 (8.4-10.2) mg/dL Magnesium 2.2 (1.6-2.6) mg/dL Total Bilirubin 0.2 (0.0-1.0) mg/dL AST 27 (5-37) U/L ALT 36 (0-40) U/L Alkaline Phosphatase 73 (39-117) U/L Troponin I High Sens < 2.7 (<3.5-35.0) ng/L Total Protein 6.8 (6.5-8.0) g/dL Albumin 4.0 (3.5-5.0) g/dL Lipase 43 (8-78) U/L Radiology Impression Discussion of test interpretation with radiology: I have reviewed the radiologist's reading. Radiologist Impression: FINDINGS: The degree of stenosis determined by criteria similar to NASCET. Brain: The lateral, third and fourth ventricles are normally outlined. The cortical sulci and basal cisterns are normally outlined as well. There is no acute territorial defects, hemorrhage or midline shift. The extra-axial spaces are unremarkable. Calvarium/scalp: Intact. Maxillofacial sinuses and mastoids: There is a left maxillary sinus opacity. The remaining visualized maxillofacial sinuses and mastoids are clear. Chest CTA: There is mild atherosclerotic plaque of the aortic arch. A three-vessel branch pattern from the aortic arch is noted. The aorta is arch branch vessels are patent. The upper lung rivers are clear. Neck CTA: Motion slightly limits evaluation at the carotid bifurcation. The common carotid, internal and external carotid arteries are patent. The vertebral arteries are codominant and both patent. Brain CTA: There is mild atherosclerotic plaque of the intracranial internal carotid arteries without significant narrowing. The bilateral anterior and middle cerebral arteries are patent. The distal vertebral arteries, basilar artery and branches as well as posterior cerebral arteries are patent. There is no evidence for aneurysm. CT/CT angio head neck stroke IMPRESSION: 1. No acute territorial infarct or hemorrhage. 2. No evidence of vascular occlusion or significant stenosis. Electronically signed by: Garret Giraldo CT/CT head for stroke IMPRESSION: 1. No acute intracranial pathology. 2. Left maxillary sinus disease. This critical result was discussed with Maximo Campuzano at at 11:36 PM hours on August 23, 2024. It was ascertained that the content and urgency of the report was understood at the time of direct communication. Electronically signed by: Garret Giraldo MD 08/23/2024 11:47 PM EDT RP Discharge Plan Discharge Clinical Impression: Arm paresthesia, left Patient Disposition: Home, Self-Care Instructions: Paresthesia (ED) Additional Instructions: Your workup in the ER today was reassuring. This includes your blood work, your CT scans, your EKG. Follow-up with your primary doctor, return for new or worsening symptoms Prescriptions: No Action clotrimazole 1 % cream 1 appl topical BID 14 Days Qty: 30 0RF Jardiance 25 mg tablet 25 mg PO DAILY lisinopril 40 mg tablet 40 mg PO DAILY Trulicity 0.75 mg/0.5 mL pen injector subcut lorazepam 2 mg tablet 2 mg PO BEDTIME PRN (Reason: Anxiety) omeprazole 20 mg capsule,delayed release(DR/EC) 20 mg PO DAILY metoprolol succinate 25 mg tablet extended release 24 hr 25 mg PO DAILY betamethasone dipropionate 0.05 % ointment 1 appl topical BID 30 Days Qty: 15 1RF Rx Instructions: Thin coat 2 times per day Print Language: Croatian
[2024-08-23] MEDS: iohexoL 350 MG/ML 100 ML INFUS..BTL 75 ML IV (23:53)
[2024-08-24 02:11] VITALS: BP 127/69; PULSE 76; RESP 14; TEMP 36.2; O2SAT 96
== END 2024-08-24 00:40 | disposition home or self-care (01) ==
PROVIDERS: Emergency Provider Emergency Medicine; PCP Family Medicine
DX: R20.2 Paresthesia of skin (principal); R53.1 Weakness; R07.9 Chest pain, unspecified; F17.210 Nicotine dependence, cigarettes, uncomplicated; R29.701 NIHSS score 1
CPT/HCPCS: 36415; 70450; 70496; 70498; 80053; 83690; 83735; 84484; 85025; 85610; 93005; 99284; Q9967

== ENCOUNTER 2024-11-04 09:50 | Outpatient (REF) | payer OTHER, SELFPAY ==
--- OUTSIDE RECORDS SUMMARY | 2024-11-04 09:57 | XMS_ITS | Data Portability ---
Author Organization [facility] Address [address] [place] [phone] Care Team Providers Care Administrative Support Coordinator Name Role Phone [facility] Referring Provider [facility] Referring Provider Assessment Encounter Date Assessment Date Assessment LastModified by Organization Details LastModified Time 05/09/2022 05/09/2022 52 YOM w/ recent ED visit for issue with foreskin and UTI, prescribed amox then developing rash over whole body currently improving after discontinuation . PT had UA, UC, and sensitivites sent Given instructions on proceeding to ED if pain at area of foreskin worsens and expressed understanding. [email or web address] Not available 05/09/2022 19:34:07 Plan of Treatment Reminders Order Date Submit Date Provider Last Modified By Organization Details Last Modified Time Details Appointments None recorded. Lab urinalysis, complete 2021 022 [place] [facility], [address] [place], [id number], 2 09:35:21 culture, urine + sensitivity 2021 022 [place] [facility], [address] [place], [id number], 3 05:01:19 Referral None recorded. Procedures None recorded. Surgeries None recorded. Imaging None recorded. Medication Orders None recorded. Patient TargetsNo targets recorded. Patient InstructionsNo instructions recorded. Reason for Referral None Reported. Results Created Date Observation Date Name Description Value Unit Range Abnormal Flag Note LastModifiedBy Organization Detail LastModifiedTime 05/09/2005/10/2022 UA W/REF SERENA CULTU RE appear/color LIGHT YELLO W CLEAR Not Available [facility] [address] [place], [id number], 05/10/2022 03:55:12 05/09/20 22 05/10/2022 UA W/REF SERENA CULTU RE sp. gravity 1.026 (1.002 -1.030 ) Not Available [facility] [address] [place], [address], 05/10/2022 03:55:12 05/09/20 22 05/10/2022 UA W/REF SERENA CULTU RE urine pH 5.5 (5.0-8 .0) Not Available [facility] [address] [place], [address], 05/10/2022 03:55:12 05/09/20 22 05/10/2022 UA W/REF SERENA CULTU RE urine albumin NEGATI VE (neg) Not Available [facility] [address] [place], [id number], 05/10/2022 03:55:12 05/09/20 22 05/10/2022 UA W/REF SERENA CULTU RE urine glucose 4+ (neg) abnormal Not Available [facility] [address] [place], [address], 05/10/2022 03:55:12 05/09/20 22 05/10/2022 UA W/REF SERENA CULTU RE urine ketones NEGATI VE (neg) Not Available [facility] [address] [place], [address], 05/10/2022 03:55:12 05/09/20 22 05/10/2022 UA W/REF SERENA CULTU RE urine bilirubin NEGATI VE (neg) Not Available [facility] [address] [place], [address], 05/10/2022 03:55:12 05/09/20 22 05/10/2022 UA W/REF SERENA CULTU RE urine hemoglobin NEGATI VE (neg) Not Available [facility] [address] [place], [address], 05/10/2022 03:55:12 05/09/20 22 05/10/2022 UA W/REF SERENA CULTU RE urine nitrite NEGATI VE (neg) Not Available [facility] [address], [address], 05/10/2022 03:55:12 05/09/20 22 05/10/2022 UA W/REF SERENA CULTU RE urine leukocyte NEGATI VE (neg) Not Available [facility] [address] [place], [address], 05/10/2022 03:55:12 05/09/20 22 05/10/2022 UA W/REF SERENA CULTU RE urobilinogen NORMAL mg/dL (norm) Not Available [facility] [address] [place], [address], 05/10/2022 03:55:12 05/09/20 22 05/10/2022 UA W/REF SERENA CULTU RE urine WBCs 4 /hpf (0-5) Not Available [facility] [address], [address], 05/10/2022 03:55:12 05/09/20 22 05/10/2022 UA W/REF SERENA CULTU RE urine RBCs NONE SEEN /hpf (0-3) Not Available [facility] [address], [address], 05/10/2022 03:55:12 05/09/20 22 05/10/2022 UA W/REF SERENA CULTU RE squamous epith <1 /hpf (0-8) Not Available [facility] [address] [place], [address], 05/10/2022 03:55:12 05/09/20 22 05/10/2022 UA W/REF SERENA CULTU RE budding yeast MODERA TE /hpf Not Available [facility] [address] [place], [address], 05/10/2022 03:55:12 05/09/20 22 05/10/2022 UA W/REF SERENA CULTU RE clarity CLEAR (clear ) Not Available [facility] [address] [place], [id number], 05/10/2022 03:55:12 05/09/20 22 05/10/2022 UA W/REF SERENA CULTU RE culture indication CULTUR E NOT INDICA FRANTZ Not Available [facility] [address] [place], [address], 05/10/2022 03:55:12 Result Notes None recorded. Medical Equipment None Reported. Medications Name Sig Start Date Stop Date Status Note LastModified by Organization Details LastModified Time ibuprofen 800 mg tablet active Not Available Not Available Not Available clobetasol 0.05 % topical cream active Not Available Not Available Not Available lorazepam 2 mg tablet TAKE 1/2 TABLET BY MOUTH TWICE A DAY NEEDED FOR ANXIETY. active Not Available Not Available No t Available bupropion HCl 75 mg tablet TAKE 1 TABLET BY MOUTH EVERY MORNING active Not Available Not Available No t Available lisinopril 30 mg tablet active Not Available Not Available Not Available omeprazole 20 mg capsule,rachel yed release TAKE 1 TABLET BY ORAL ROUTE EVERY DAY active Not Available Not Available No t Available mometasone 0.1 % topical ointment active Not Available Not Available Not Available metoprolol succinate ER 25 mg tablet,exten ded release 24 hr active Not Available Not Available Not Available lisinopril 40 mg tablet active Not Available Not Available Not Available clotrimazole 1 % topical cream APPLY 1 APPLICATION TOPICALLY 2 TIMES A DAY FOR 2 WEEKS active Not Available Not Available Not Available risperidone 1 mg tablet TAKE 1 TABLET BY MOUTH ONCE A DAY & 1/2 TABLET (0.5 MG) BY MOUTH DAILY NEEDED FOR AGITATION/P SYCHOSIS. active Not Available Not Available No t Available amoxicillin 875 mg-potassium clavulanate 125 mg tablet TAKE 1 TABLET BY MOUTH 2 TIMES A DAY active Not Available Not Available Not Available topiramate 50 mg tablet TAKE 1 TABLET BY MOUTH ONCE A DAY active Not Available Not Available No t Available FreeStyle Lite Strips USE DIRECTED TO TEST TWICE DAILY active Not Available Not Available No t Available Jardiance 25 mg tablet TAKE 1 TABLET BY ORAL ROUTE EVERY DAY IN THE MORNING active Not Available Not Available No t Available Trulicity 0.75 mg/0.5 mL subcutaneous pen injector INJECT (0.75MG) BY SUBCUTANEOU S ROUTE EVERY WEEK active Not Available Not Available N ot Available Ultra-Care Lancets 30 gauge USE DIRECTED TWICE DAILY active Not Available Not Available Not Available Vitals Date Recorded Respiratory rate Heart rate Oxygen saturation Oxygen saturation in Arterial blood by Pulse oximetry Body temperature Systolic blood pressure Diastolic blood pressure Provider Name and Address Organization Details Last Updated DateTime 2 20 /min 70 /min 98 % 98 % 97.5 [degF] 135 mm[Hg] 78 mm[Hg] Not Available [facility] 15:25:58 Date Recorded Body temperature Heart rate Oxygen saturation Oxygen saturation in Arterial blood by Pulse oximetry Respiratory rate Systolic blood pressure Diastolic blood pressure Provider Name and Address Organization Details Last Updated DateTime 2 98.6 [degF] 88 /min 98 % 98 % 18 /min 154 mm[Hg] 84 mm[Hg] Not Available [place] [facility] 19:17:30 Social History None recorded. Functional Status None recorded. Mental Status None recorded. Family History Nothing Reported. Medical History No medical history recorded. Past Encounters Encounter ID Performer Location Encounter Start Date Encounter Closed Date Diagnosis/Indication Diagnosis SNOMED-CT Code Diagnosis ICD10 Code [id number] Tommie Arnold MD [facility] [address] [place] [phone] 05/02/2022 15:25:55 05/10/2022 12:42:07 [id number] Maximo Kathleen MD [facility] [address] [place] [phone] 05/09/2022 19:17:28 07/12/2022 15:30:24 Urinary tract infectious disease 13971830 N39.0 Health Concerns Section Related Observation LastModified by Organization Detai ls LastModified Time None Recorded Concern Status LastModified by Organization Details LastModified Time None Recorded Advance Directives Directive None Recorded Payers Encounter Date Sequence Insurance Name Policy Number Policy [place] Covered Member ID [place] Member ID Guarantor Name 05/02/2022 1 [facility] - DOS PRIOR TO 2023 - DUAL ELIGIBLE (MEDICARE REPLACEMENT/ADV ANTAGE - HMO) Cholo Rivas [id number] Cholo Rivas 05/09/2022 1 [facility] - DOS PRIOR TO 2023 - DUAL ELIGIBLE (MEDICARE REPLACEMENT/ADV ANTAGE - HMO) Cholo Rivas [id number] Cholo Rivas Notes Date Note Type Note Provider Name and Address Organization Details Recorded Time 05/02/2022 text/html HPI: Allergic to : Meperidine HCL Preservative Free Patient with history of hydrocele, psoriasis, obesity. Seen in ED 04/26/22 balanitis with swelling of foreskin started on Antibiotic. Stopped independently with fear of reaction. Now with rash diffuse with no blisters. History of Psoraisis Reports voiding but has low abdominal pressure. ................... ................... ................... ................... ................... ................... ................... ........ CRC Nursing Assessment: Comments: CRC RN did not require any additional information to process this visit ................... ................... ................... ................... ................... ................... ................... ........ Mattress Maker Note: Chief Complaint medication reaction. Pertinent positive and negative Review of Systems (ROS) findings Constitutional: Afebrile without fatigue/malaise/ lethargy. Denies Chills HEENT: Denies visual changes Resp: Denies cough, Wheeze, Hemoptysis, SOB or BLACK Cardio: Denies Chest pain or palpitations GI: Denies N/V/D or current loss of appetite Genitourinary: Appropriate frequency without pain or odor Musculoskeletal: Pt denies pain or swelling Neuro: Alert to baseline Psych: Denies anxiety or depression Skin: wounds similair looking like blisters on left hand and fingers. Endocrine: No new unexpected weight loss/gain Focused Physical Assessment Findings Pt reports wounds looking similair to blisters x2 days after taking prescribed amoxicillin for infection. Also reports burning sensation in belly. No signs of anaphalcatic reaction noted. General: Well developed and well nourished in no acute distress HEENT: Unremarkable Neck: Unremarkable Lungs: Clear to auscultation without egophony Heart: Regular rate and rhythm Abdomen: Soft, Non-distended and non-tender Extremities: No Cyanosis, rash, lesions or edema Neuro: At baseline Psych: Good Affect/Mood/ Attention Skin wounds noted that look like blisters, are painfull not itchy, Vital signs: As above NEWS score: Diagnostic Testing: Initial Interventions and actions on standing orders: Vitals, hx, exam Red Flags Discussed: ? ? Pt will follow up with pcp. ................... ................... ................... ................... ................... ................... ................... ........ Disposition: Fulfilled Tommie Arnold MD [address] [place] [address],[address], [place], [phone], [facility] 05/10/2022 12:42:00 05/09/2022 text/html HPI: Member called into the [facility] stating that he had gone to the ER around April 26 for issue with his foreskin of his penis stays inside his penis and causes an infection. He states that the medication he received in the ER was causing him to have an issue with his skin and no one assisted him with helping him to pull the foreskin from within his penis. [place] states he is uncomfortable, still remains with an infection as he stopped that medication early ( [id number], One tablet BID). Cholo states he has name of Urologist and is waiting on an appointment as waiting on Authorization. ................... ................... ................... ................... ................... ................... ................... ........ CRC Nursing Assessment: Comments: request review no additional information needed to process visit Maximo Kathleen MD [address] [facility],[address], [place], [phone], MANUEL AUSTIN 05/09/2022 19:34:20
[2024-11-04 11:36] LABS: Estimated Average Glucose 148 mg/dL; Hemoglobin A1C 208.3717 umol/L; Hemoglobin A1c % 6.8 % (<6.0); Total Hemoglobin (HGBA1C) 4137.5061 umol/L
[2024-11-04 11:55] LABS: Hepatitis A Antibody IgG REACTIVE (Nonreactive)
[2024-11-04 11:58] LABS: Alanine Aminotransferase 36 U/L (0-40); Albumin Level 4.2 g/dL (3.5-5.0); Alkaline Phosphatase 67 U/L (39-117); Anion Gap 12 (12-20); Aspartate Amino Transferase 31 U/L (5-37); Bilirubin Total 0.4 mg/dL (0.0-1.0); Blood Urea Nitrogen 16 mg/dL (9-16); Calcium 9.4 mg/dL (8.4-10.2); Carbon Dioxide 22 mmol/L (22-29); Chloride 110 mmol/L (96-108); Cholesterol 197 mg/dL (<200); Estimated Glomerular Filt Rate > 60; Glucose Random 152 mg/dL (60-115); HDL Cholesterol 51 mg/dL (>40); LDL Cholesterol Calculated 121 mg/dL (<100); Potassium 3.9 mmol/L (3.3-5.1); Sodium 140 mmol/L (135-145); TSH reflex Free T4 1.61 uIU/mL (0.32-4.0); Total Protein 7.3 g/dL (6.5-8.0); Triglycerides 125 mg/dL (<150)
[2024-11-04 14:10] LABS: Reflex LDLD? No
== END 2024-11-04 09:51 | disposition home or self-care (01) ==
LOC: HO.HHCL 09:50
PROVIDERS: Nurse Practitioner Family; Visit Provider Family Medicine
DX: E11.9 Type 2 diabetes mellitus without complications (principal); E11.65 Type 2 diabetes mellitus with hyperglycemia; I10 Essential (primary) hypertension; Z01.84 Encounter for antibody response examination; R74.8 Abnormal levels of other serum enzymes; E66.813 Obesity, class 3
CPT/HCPCS: 36415; 80053; 80061; 82550; 83036; 84443; 86708

== ENCOUNTER → 2025-03-31 20:30 | Outpatient (REF) | payer OTHER, SELFPAY ==
--- OUTSIDE RECORDS SUMMARY | 2025-03-31 20:40 | XMS_ITS | Encounter Summary ---
Author Organization [employer] Address [address] [facility] [address] [place] [address] Care Team Providers Care Crime Scene Evidence Technician Name Role Phone Anali Henry MD Primary Care Provider [phone] Reason for Visit * Reason Comments Med Refill Encounter Details Date Type Department Care Team ([facility] st Contact Info) Description 03/31/2025 Refill [facility] [address] [place] [address] Anali Henry MD [address] [place], [place] [phone] Social History Tobacco Use Types Packs/Day Years Used Date Smoking Tobacco: Every Day Cigarettes Passive Smoke Exposure: Current Smokeless Tobacco: Never Alcohol Use Standard Drinks/Week Comments Defer 0 (1 standard drink = 0.6 oz pur e alcohol) Depression Answer Date Recorded Patient Health Questionnaire-9 Score 0 11/04/2024 Patient Health Questionnaire-9 Score 0 11/04/2024 Last PHQ-9: Questionnaire Data Not on file 1 Housing Stability Answer Date Recorded What is your housing situation today? I have tran [place] 02/12/[address] you li ve. Do you have problems with any of the following? None of the above 02/12/2024 Food Insecurity Answer Date Recorded Within the past 12 months, y ou worried that your food would run out before you got money to buy more: Never True 02/12/2024 Within the past 12 months,th e food you bought just didn't last and you didn't have enough money to get more: Never True 07/2024 Transportation Answer Date Recorded In the past 12 months, has l ack of transportation kept you from medical appts, meetings, work or from getting things needed for daily living? No 02/12/2024 Utilities Answer Date Recorded In the past 12 months, has t he electric, gas, oil or water company threatened to shut off services in your home? No 02/12/2024 Depression Answer Date Recorded Patient Health Questionnaire-2 Score 0 11/04/2024 Sex and Gender Information Value Date Recorded Sex Assigned at Male 09/04/2022 10:15 AM EDT Legal Sex Male 10:15 AM EDT Gender Identity Male 09/04/2022 10:15 AM EDT Sexual Orientation Lesbian or Meza 09/04/2022 10 :15 AM EDT documented as of this encounter Plan of Treatment Upcoming Encounters Date Type Department Care Team (Late st Contact Info) Description 04/24/2025 10:30 AM EDT Office Visit [facility] [address] [place] [address] Ranjit, Marisol, OD [address] [place] [address] 05/01/2025 9:00 AM EDT Office Visit [facility] [address] [place] [address] Raza Kruger MD [address] [place] [address] 05/26/2025 9:15 AM EDT Office Visit [facility] [address] [place] [address] Anali Henry MD [address] [place] [phone] documented as of this encounter Visit Diagnoses Not on filedocumented in this encounter Additional Health Concerns Assessment Noted Time PHQ-9 Depression Total Score: 0 11/04/20 24 9:28 AM EST documented as of this encounter Care Teams Crime Scene Evidence Technician Relationship Specialty Start Date End Date Anali Henry MD [address] [place] [id number] PCP - General Family Medicine 09/04/12 documented as of this encounter
== END ==
LOC: HO.SL 20:30
PROVIDERS: PCP Family Medicine; Visit Provider Family Medicine
DX: G47.33 Obstructive sleep apnea (adult) (pediatric) (principal)
CPT/HCPCS: 95810

== ENCOUNTER → 2025-03-31 20:30 | Outpatient (BNV) | payer OTHER, SELFPAY | PROVIDERS: PCP Family Medicine; Visit Provider Internal Medicine | DX: G47.33 Obstructive sleep apnea (adult) (pediatric) (principal) | CPT/HCPCS: 95810 ==

== ENCOUNTER 2025-06-16 09:28 | Emergency (ER) | payer OTHER, SELFPAY ==
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
[2025-06-16 09:30] VITALS: BP 126/59; PULSE 84; RESP 18; TEMP 36.4; O2SAT 94; BMI 40.4
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
--- OUTSIDE RECORDS SUMMARY | 2025-06-16 11:12 | XMS_ITS | Encounter Summary ---
Author Organization [employer] Address [address] [place] [address] Care Team Providers Care Book Cleaner Name Role Phone Anali Henry MD Primary Care Provider Reason for Visit * Reason Comments Med Refill Encounter Details Date Type Department Care Team ([facility] st Contact Info) Description 03/31/2025 Refill [facility] [address] [place] [address] Anali Henry MD [address] [place], [place] [phone] Social History Tobacco Use Types Packs/Day Years [...] as of this encounter Plan of Treatment Not on file documented as of this encounter Visit Diagnoses Not on filedocumented in this encounter Additional Health Concerns Assessment Noted Time PHQ-9 Depression Total Score: 0 11/04/20 24 9:28 AM EST documented as of this encounter Care Teams Book Cleaner Relationship Specialty Start Date End Date Anali Henry MD [address] [place] [id number] PCP - General Family Medicine 09/04/12 documented as of this encounter
[2025-06-16 11:51] VITALS: BP 132/65; PULSE 80; RESP 15; TEMP 36.4; O2SAT 965
== END 2025-06-16 11:52 | disposition home or self-care (01) ==
PROVIDERS: Emergency Provider Emergency Medicine; PCP Family Medicine
DX: S40.012A Contusion of left shoulder, initial encounter (principal); S13.9XXA Sprain of joints and ligaments of unspecified parts of neck, initial encounter; V43.62XA Car passenger injured in collision with other type car in traffic accident, initial encounter; M79.605 Pain in left leg; E11.9 Type 2 diabetes mellitus without complications; I10 Essential (primary) hypertension; F17.210 Nicotine dependence, cigarettes, uncomplicated; Y93.89 Activity, other specified; Y92.414 Local residential or business street as the place of occurrence of the external cause; Y99.9 Unspecified external cause status
CPT/HCPCS: 71046; 72125; 73030; 73590; 99283; 99284

== ENCOUNTER → 2025-06-16 09:34 | Outpatient (BNV) | payer OTHER, SELFPAY | PROVIDERS: Emergency Provider Emergency Medicine; PCP Family Medicine; Visit Provider Radiology Diagnostic Radiology | DX: M47.812 Spondylosis without myelopathy or radiculopathy, cervical region (principal); R07.89 Other chest pain; M19.012 Primary osteoarthritis, left shoulder; M79.605 Pain in left leg | CPT/HCPCS: 71046; 72125; 73030; 73590 ==

== ENCOUNTER → 2025-06-30 19:30 | Outpatient (BNV) | payer OTHER, SELFPAY | PROVIDERS: PCP Family Medicine; Visit Provider Internal Medicine | DX: G47.33 Obstructive sleep apnea (adult) (pediatric) (principal) | CPT/HCPCS: 95810 ==

== ENCOUNTER → 2025-06-30 19:30 | Outpatient (REF) | payer OTHER, SELFPAY ==
--- OUTSIDE RECORDS SUMMARY | 2025-06-30 20:59 | XMS_ITS | Clinical Summary ---
Author Organization [employer] Address [address] [place] [address] Care Team Providers Care Rn Procedure Name Role Phone Anali Henry MD Primary Care Provider [phone] Allergies Active Allergy Reactions Criticality Noted Date Comments Flavoring Agent (Non-Screening) 02/08/2023 Corylus Anaphylaxis High 03/14/2023 Meperidine 05/03/2015 Ketorolac Tromethamine Hives 02/08/2023 He does not have reaction with other NSAIDs Medications traZODone (Desyrel) 50 MG tablet Take 1 tablet by mouth at bed time. Active buPROPion (Wellbutrin) 75 MG tablet Take 75 mg by mouth in the morning. 3 Active clotrimazole (Lotrimin) 1 % cream clotrimazole 1 % topical cream APPLY 1 APPLICATION TOPICALLY 2 TIMES A DAY FOR 2 WEEKS Active cyanocobalamin (Vitamin B-12) 100 MCG tablet Take 1 tablet by mouth in the morning. Active ergocalciferol (Vitamin D-2) 1.25 MG (55933 UT) capsule Take by mouth. Act anayeli LORazepam (Ativan) 2 MG tablet TAKE 1/2 TABLET BY MOUTH TWICE A DAY NEEDED FOR ANXIETY. 3 Active mometasone (Elocon) 0.1 % ointment mometasone 0.1 % topical ointment 2 Active risperiDONE (RisperDAL) 1 MG tablet TAKE 1 TABLET BY MOUTH ONCE A DAY & 1/2 TABLET (0.5 MG) BY MOUTH DAILY NEEDED FOR AGITATION/PSYCHO SIS. 3 Active topiramate 50 MG tablet Take 1 tablet by mouth in the morning. 3 Active Blood Glucose Monitoring Suppl (FreeStyle Lite) w/Device kitIndications :Type 2 diabetes mellitus without complication, without long-term current use of insulin ([facility]) 1 kit before breakfast and before evening meal. 1 kit 4 Active clobetasol (Temovate) 0.05 % cream Use thin layer to affected area once daily 60 g 11 4 Active Alcohol Swabs (Alcohol Pads) 70 % pads Use as directed 100 each 4 Active omeprazole (PriLOSEC) [address] capsule Take 1 capsule (20 mg) by mouth before breakfast. TAKE 1 CAPSULE BY MOUTH EVERY DAY 90 capsule 3 4 Active Ultra-Care Lancets 30G misc USE DIRECTED TWICE DAILY 100 each 4 Active gabapentin (Neurontin) 100 MG capsule Take 1 capsule (100 mg) by mouth at bedtime. 30 capsule 11 4 08/04/20 25 Active acetaminophen (Tylenol) 500 MG tablet Take 1 tablet (500 mg) by mouth every 6 (six) hours if needed for mild pain for up to 20 doses. 20 tablet 4 Active guaiFENesin (Humibid 3) 400 MG tablet Take 1 tablet (400 mg) by mouth every 6 (six) hours if needed for cough. 30 tablet 1 4 Active rosuvastatin (Crestor) 5 MG tablet Take 1 tablet (5 mg) by mouth Once per day. 30 tablet 11 5 11/07/19 26 Active metFORMIN XR (Glucophage-XR ) 500 MG 24 hr tablet TAKE 2 TABLETS BY MOUTH TWICE DAILY. DO NOT CRUSH, CHEW OR SPLIT. 120 tablet 1 5 Active lisinopril 40 MG tablet TAKE 1 TABLET (40 MG) BY MOUTH ONCE PER DAY. 30 tablet 2 5 Active FREESTYLE LITE test stripIndicatio ns:Type 2 diabetes mellitus with hyperglycemia, without long-term current use of insulin ([facility]) USE DIRECTED TO TEST TWICE DAILY 100 each 5 Active Jardiance 25 MG TAKE 1 TABLET BY MOUTH EVERY MORNING 30 tablet 3 5 Active Ozempic, 1 MG/DOSE, 4 MG/3ML solution pen-injectorIn dications:Type 2 diabetes mellitus with hyperglycemia, without long-term current use of insulin (CMS/HCC) Inject 1 mg under the skin 1 (one) time per week. 4 each 5 Active azithromycin (Zithromax) 250 MG tablet Take 2 tablets by mouth on Day 1, and 1 tablet daily from Day 2 to Day 5 6 tablet 5 Active predniSONE (Deltasone) 20 MG tablet Take 1 tablet (20 mg) by mouth Once per day for 5 days. 5 tablet 5 05/31/20 25 Active Problems Problem Noted Date Diagnosed Date Dental abscess 09/04/2024 Retained dental root 09/04/2024 Dyslipidemia 05/20/2024 Assessment & Plan (05/27/2025 9:42 AM EDT): - Lipid profile: 11/04/24 TC 197; TG 125; HDL 51; LDL 121 - Started on Rosuvastatin in November 2024 - Hx mildly elevated CPK. Negative muscle enzyme test. Likely due to his weight. - Continue lifestyle modifications Assessment & Plan (03/03/2025 9:49 AM EDT): - Lipid profile: 11/04/24 TC 197; TG 125; HDL 51; LDL 121 - Started on Rosuvastatin in November 2024 - Continue lifestyle modifications Tubular adenoma 08/30/2023 Overview (08/30/2023): On colonoscopy 06/01/23 Assessment & Plan (02/23/2024 6:52 AM EDT): - 06/01/[address] Patino. Tubular adenoma. Family Hx colon cancer - Next colonoscopy in 5 years Metabolic dysfunction-associ ated steatotic liver disease (MASLD) 02/09/2023 Assessment & Plan (05/27/2025 9:44 AM EDT): - last imaging study was CT in Dec 2022 at ED, which showed hepatomegaly and liver steatosis - US elastography on 03/12/24. Mild hepatomegaly. Fatty liver or hepatocellular disease. No focal lesion. Normal liver stiffness Shear wave 1.07 m/s. - FIB-4 index 0.91 - continue working on lifestyle modifications - continue GLP-1 RA Assessment & Plan (03/05/2025 10:28 AM EDT): - last imaging study was CT in Dec 2022 at ED, which showed hepatomegaly and liver steatosis - US elastography on 03/12/24. Mild hepatomegaly. Fatty liver or hepatocellular disease. No focal lesion. Normal liver stiffness Shear wave 1.07 m/s. - FIB-4 index 0.91 - continue working on lifestyle modifications - continue GLP-1 RA Assessment & Plan (11/04/2024 4:59 AM EST): - last imaging study was CT in Dec 2022 at ED, which showed hepatomegaly and liver steatosis - US elastography on 03/12/24. Mild hepatomegaly. Fatty liver or hepatocellular disease. No focal lesion. Normal liver stiffness Shear wave 1.07 m/s. - FIB-4 index 0.91 - continue working on lifestyle modifications - continue GLP-1 RA Assessment & Plan (09/15/2024 10:54 AM EST): - last imaging study was CT in Dec 2022 at ED, which showed hepatomegaly and liver steatosis - US elastography on 03/12/24. Mild hepatomegaly. Fatty liver or hepatocellular disease. No focal lesion. Normal liver stiffness Shear wave 1.07 m/s. - FIB-4 index 0.91 - continue working on lifestyle modifications - continue GLP-1 RA Assessment & Plan (03/14/2024 3:23 PM EDT): - last imaging study was CT in Dec 2022 at ED, which showed hepatomegaly and liver steatosis - US elastography on 03/12/24, result pending - update FIB-4 - continue working on lifestyle modifications - continue GLP-1 RA Assessment & Plan (02/23/2024 6:57 AM EDT): - last imaging study was CT in Dec 2022 at ED - update US - update FIB-4 - continue working on lifestyle modifications - continue GLP-1 RA Assessment & Plan (02/09/2023 10:35 AM EDT): -12/16/22 AST 57; ALT 77; Alk Phos 84; Bili wnl; Hepatitis profile negative in May 2022 -Not on statin due to elevated CPK and myositis-like symptoms -consider trial of rosuvastatin at low dose. Family history of ASCVD (art eriosclerotic cardiovascular disease) 02/09/2023 Assessment & Plan (02/09/2023 10:37 AM EDT): -his sister had CVA at age 61 (and ?heart attack) -refer to county bailiff due to pt's risk factors and to request recommendation to optimize risk factor management since pt is not on statin currently History of diverticulitis 02/08/2023 Assessment & Plan (02/09/2023 10:24 AM EDT): -hospitalization in February 2016, microperforation -last diverticulitis, seen in ED in December 2022, treated with Agumentin -most recent CT in January 2023 showed no diverticulitis -seen by Dr. Patino in April 2021 and given reassurance. Foot pain 02/07/2023 Assessment & Plan (02/09/2023 10:04 AM EDT): -calluses on feet -refer to financial advisor trainee for both diabetic foot care and hyperkeratotic areas Type 2 diabetes mellitus wit h hyperglycemia, without long-term current use of insulin 02/07/2023 Assessment & Plan (05/27/2025 9:43 AM EDT): - Dx 2018 - Hgb A1C 6.5% on 05/26/25, improved from 6.8% on 03/03/25 - Continue working on lifestyle modifications - Continue checking glucose: Glucose monitor Freestyle - Continue metformin ER 1000 mg bid - Continue Jardiance 25 mg daily (caution with balanitis) - Continue Semaglutide, currently at 1 mg weekly - Microalbumin test: 05/10/22 UACR 5 - Lipid profile: 11/04/24 TC 197; TG 125; HDL 51; LDL 121 - Diabetic eye exam: 12/25/24 - Foot exam: Jul 2024 callus. - Treatment Hx: Switched dulaglutide (Trulicity) 1.5 mg to semaglutide 1 mg weekly in Sep 2024. Assessment & Plan (03/03/2025 9:48 AM EDT): - Dx 2018 - Hgb A1C 6.8% on 03/03/25, improvement from 7.5%, improving - Continue working on lifestyle modifications - Continue checking glucose: Glucose monitor Freestyle - Continue metformin ER 1000 mg bid - Continue Jardiance 25 mg daily (caution with balanitis) - Continue Semaglutide, currently at 1 mg weekly - Microalbumin test: 05/10/22 UACR 5 - Lipid profile: 11/04/24 TC 197; TG 125; HDL 51; LDL 121 - Diabetic eye exam: 12/25/24 - Foot exam: Jul 2024 callus. - Treatment Hx: Switched dulaglutide (Trulicity) 1.5 mg to semaglutide 1 mg weekly in Sep 2024. Assessment & Plan (11/10/2024 8:42 AM EST): - Dx 2018 - Hgb A1C 7.5%, improving - Continue working on lifestyle modifications - Continue checking glucose: Glucose monitor Freestyle - Continue metformin ER 1000 mg bid - Continue Jardiance 25 mg daily (caution with balanitis) - Continue Semaglutide, currently at 1 mg weekly - Microalbumin test: 05/10/22 UACR 5 - Lipid profile: 05/10/22 TC 157; TG 142; HDL 41; LDL 92 pt is not on statin due to elevated CK. - Diabetic eye exam: Overdue - Foot exam: Jul 2024 callus. - Treatment Hx: Switched dulaglutide (Trulicity) 1.5 mg to semaglutide 1 mg weekly in Sep 2024. Assessment & Plan (09/11/2024 12:31 PM EST): - Dx 2018 - Hgb A1C 9.6%, improving - Continue working on lifestyle modifications - Continue checking glucose: Glucose monitor Freestyle - Continue metformin ER 1000 mg bid - Continue Jardiance 25 mg daily (caution with balanitis) - switch Trulicity to 1.5 mg weekly to ozempic 1 mg weekly - Microalbumin test: 05/10/22 UACR 5 - Lipid profile: 05/10/22 TC 157; TG 142; HDL 41; LDL 92 pt is not on statin due to elevated CK. - Diabetic eye exam: Overdue - Foot exam: 02/08/23 callus. Assessment & Plan (03/14/2024 3:46 PM EDT): - Dx 2018 - Hgb A1C 9.6%, improving - Continue working on lifestyle modifications - Continue checking glucose: Glucose monitor Freestyle - Continue metformin ER 1000 mg bid - Continue Jardiance 25 mg daily (caution with balanitis) - Increase Trulicity to 1.5 mg weekly, consider titratng up if A1C is still > 7.5 at next visit - Microalbumin test: 05/10/22 UACR 5 - Lipid profile: 05/10/22 TC 157; TG 142; HDL 41; LDL 92 pt is not on statin due to elevated CK. - Diabetic eye exam: Overdue - Foot exam: 02/08/23 callus. Assessment & Plan (02/23/2024 6:45 AM EDT): - Dx 2018 - Hgb A1C 10.7%, worsening - Continue working on lifestyle modifications - Continue checking glucose: Glucose monitor Freestyle - Restart metformin ER 1000 mg bid -Continue Jardiance 25 mg daily (caution with balanitis) -Continue Trulicity 0.75 mg weekly, consider titratng up if A1C is still > 7.5 at next visit - Microalbumin test: 05/10/22 UACR 5 - Lipid profile: 05/10/22 TC 157; TG 142; HDL 41; LDL 92 pt is not on statin due to elevated CK. - Diabetic eye exam: Overdue - Foot exam: 02/08/23 callus. Referring to financial advisor trainee Follow up in 3 mo or sooner if any problem arises Assessment & Plan (02/09/2023 10:20 AM EDT): - Dx 2018 - Hgb A1C 9.0% today - Continue working on lifestyle modifications - Continue checking glucose: Glucose monitor Freestyle - Restart metformin ER 1000 mg bid -Continue Jardiance 25 mg daily (caution with balanitis) -Continue Trulicity 0.75 mg weekly, consider titratng up if A1C is still > 7.5 at next visit - Microalbumin test: 05/10/22 UACR 5 - Lipid profile: 05/10/22 TC 157; TG 142; HDL 41; LDL 92 pt is not on statin due to elevated CK. - Diabetic eye exam: Overdue - Foot exam: 02/08/23 callus. Referring to financial advisor trainee Follow up in 3 mo or sooner if any problem arises Elevated CK 07/23/2018 Assessment & Plan (05/27/2025 9:45 AM EDT): - No increase, in fact decrease, in CPK with statin therapy - patient was referred to a garment folder for evaluation for myositis, but patient never kept appointment - chronic, possibly due to his weight Assessment & Plan (11/10/2024 8:43 AM EST): >>ASSESSMENT AND PLAN FOR INCREASED CREATINE KINASE LEVEL WRITTEN ON 02/08/2023 1:40 PM BY JOSE GUADARRAMA Due to CPK -patient has not been able to take Statin -consider Zetia -will refer to Senior Web Services Developer d/t increased cardiovascular event Assessment & Plan (11/10/2024 8:45 AM EST): - We have not started a statin therapy due to elevated CK - patient was referred to a garment folder for evaluation for myositis, but patient never kept appointment - chronic, possibly due to his weight - consider starting statin and monitor closely. At this time, the benefit of statin therapy outweighs the risk of statin-induced myopathy Hepatitis C antibody test positive 07/25/2017 Assessment & Plan (02/09/2023 10:25 AM EDT): -Recent lab in May 2022 Hep C antibody non-reactive Vitamin D deficiency 04/16/2017 Obstructive sleep apnea syndrome 01/08/2017 Assessment & Plan (03/03/2025 9:43 AM EDT): - Pt has not received their sleep ap machine - patient needs new strap. Will order requested item. - Will order new sleep study so pt can receive a new sleep ap machine Assessment & Plan (11/04/2024 4:59 AM EST): - Continue CPAP - patient needs new strap. Will order requested item. Assessment & Plan (09/11/2024 12:32 PM EST): - Continue CPAP - patient needs new strap. Will order requested item. Assessment & Plan (02/23/2024 6:46 AM EDT): Continue CPAP Repeat sleep study CPAP titration due to broken mask Assessment & Plan (02/08/2023 1:28 PM EDT): Continue adherence to CPAP nightly Hyperplastic colonic polyp 08/28/2016 Assessment & Plan (02/08/2023 6:02 AM EDT): -06/15/[address] Patino, 3 polyps, all were hyperplastic -repeat colonoscopy in 10 years Gastroesophageal reflux disease 11/13/2013 Assessment & Plan (02/08/2023 1:42 PM EDT): Continue taking Omeprazole Hydrocele 10/21/2012 Assessment & Plan (02/23/2024 6:55 AM EDT): - Seen by [facility] in Jul 2023 Assessment & Plan (02/08/2023 1:44 PM EDT): Patient was re-referred to Urologist several times, missed appointments -States he does not need the evaluation at this time Hypertension 10/21/2012 Assessment & Plan (05/25/2025 9:38 PM EDT): -Goal BP < 130/80 per ACC/AHA guideline -Continue working on lifestyle modifications -Continue Lisinopril 40 mg daily -Treatment Hx: previously on metoprolol succinate 25 mg daily, which was discontinued in February 2024 due to low BP -continue checking BP at home Assessment & Plan (03/03/2025 9:49 AM EDT): -Goal BP < 140/90 per JNC-8 and < 130/80 per ACC/AHA guideline -Continue working on lifestyle modifications -Continue Lisinopril 40 mg daily -Treatment Hx: previously on metoprolol succinate 25 mg daily, which was discontinued in February 2024 due to low BP -continue checking BP at home Assessment & Plan (11/04/2024 4:59 AM EST): -Goal BP < 140/90 per JNC-8 and < 130/80 per ACC/AHA guideline -Continue working on lifestyle modifications -Continue Lisinopril 40 mg daily -Treatment Hx: previously on metoprolol succinate 25 mg daily, which was discontinued in February 2024 due to low BP -continue checking BP at home Assessment & Plan (09/15/2024 10:50 AM EST): -Goal BP < 140/90 per JNC-8 and < 130/80 per ACC/AHA guideline -Continue working on lifestyle modifications -Continue Lisinopril 40 mg daily -Treatment Hx: previously on metoprolol succinate 25 mg daily, which was discontinued in February 2024 due to low BP -continue checking BP at home Assessment & Plan (03/14/2024 3:17 PM EDT): -Goal BP < 140/90 per JNC-8 and < 130/80 per ACC/AHA guideline -Continue working on lifestyle modifications -Continue Lisinopril 40 mg daily -Treatment Hx: previously on metoprolol succinate 25 mg daily, which was discontinued in February 2024 due to low BP -continue checking BP at home Assessment & Plan (02/23/2024 7:00 AM EDT): -Goal BP < 140/90 per JNC-8 and < 130/80 per ACC/AHA guideline -BP lower side today and patient has not been taking metoprolol regularly -Continue working on lifestyle modifications -Discontinue Metoprolol Succinate 25 mg at bedtime -Continue Lisinopril 40 mg daily -continue checking BP at home Assessment & Plan (02/09/2023 10:06 AM EDT): -Goal BP < 140/90 per JNC-8 and < 130/80 per ACC/AHA guideline (Treatment threshold >= ) -BP almost at goal -Continue working on lifestyle modifications -Continue Metoprolol Succinate 25 mg at bedtime -Continue Lisinopril 40 mg daily -continue checking BP at home -Follow up in 3-6 mo, sooner if any problem arises Mood disorder 10/21/2012 Assessment & Plan (03/03/2025 9:50 AM EDT): [facility] [place] [facility]ing Dx: ?bipolar or Schizoaffective disorder Current medications: Risperidone; bupropion; trazodone; lorazepam Continue current medications and counseling Assessment & Plan (11/04/2024 5:03 AM EST): [facility] [place] [facility] Counseling Dx: ?bipolar or Schizoaffective disorder Current medications: Risperidone; bupropion; trazodone; lorazepam Continue current medications and counseling Assessment & Plan (03/14/2024 3:48 PM EDT): [facility] [place] [facility] Counseling Dx: ?bipolar or Schizoaffective disorder Current medications: Risperidone; bupropion; trazodone; lorazepam Continue current medications and counseling Assessment & Plan (02/23/2024 6:42 AM EDT): [facility] [place] [facility] Counseling Dx: ?bipolar or Schizoaffective disorder Current medications: Risperidone, lorazepam Continue current medications and counseling Assessment & Plan (02/09/2023 10:28 AM EDT): [facility] provider[place] [facility] Counseling Dx: ?bipolar or Schizoaffective disorder Current medications: Risperidone, lorazepam Continue current medications and counseling Psychotic disorder 10/21/2012 Class 3 obesity 10/21/2012 Assessment & Plan (05/27/2025 9:44 AM EDT): Continue working on lifestyle modifications Continue GLP1RA, currently on semaglutide Assessment & Plan (02/23/2024 6:45 AM EDT): Continue working on lifestyle modifications On dulaglutide (Trulicity); consider increasing its dose Assessment & Plan (02/08/2023 1:32 PM EDT): Continue working on lifestyle modifications Panic attack 10/21/2012 Posttraumatic stress disorder 10/21/2012 Assessment & Plan (02/23/2024 6:42 AM EDT): Continue treatment plan per behavioral health service provider Assessment & Plan (02/08/2023 1:36 PM EDT): Continue treatment plan per [facility] Provider Psoriasis 10/21/2012 Assessment & Plan (05/27/2025 9:45 AM EDT): -Patient has not had a follow-up with previous Glass Designer, would prefer a morning appointment. -Previously using mometasone and clobetasol ointment -Previously seeing Dr. Prescott, lost in follow-up -Referred to [facility] Assessment & Plan (03/05/2025 10:28 AM EDT): -Patient has not had a follow-up with previous Glass Designer, would prefer a morning appointment. -Previously using mometasone and clobetasol ointment -Previously seeing Dr. Prescott, lost in follow-up -Referred to Dermatology Clinic Assessment & Plan (11/04/2024 9:45 AM EST): -Patient has not had a follow-up with previous Glass Designer, would prefer a morning appointment. -Previously using mometasone and clobetasol ointment -Previously seeing Dr. Prescott, lost in follow-up -Will refer to Dermatology Clinic Assessment & Plan (02/23/2024 6:41 AM EDT): -Patient has not had a follow-up with previous Glass Designer -Previously using mometasone and clobetasol ointment -Previously seeing Dr. Prescott, lost in follow-up -Will refer to Dermatology Clinic Assessment & Plan (02/09/2023 10:26 AM EDT): -Patient has not had a follow-up with previous Glass Designer -Previously using mometasone and clobetasol ointment -Previously seeing Dr. Prescott, lost in follow-up -Will refer to Dermatology Clinic Dr. Kruger Tobacco dependence 10/21/2012 Assessment & Plan (05/27/2025 9:46 AM EDT): -Patient smokes 1/2 - 1 pack per/day -Continue working on smoking cessation -Referred to lung cancer screening program at [facility], appointment rescheduled for 07/17/25 at 10:30 am. Assessment & Plan (03/03/2025 9:47 AM EDT): -Patient smokes 1/2 - 1 pack per/day -Continue working on smoking cessation -Referred to lung cancer screening program at [facility], patient cancelled appointment for CT - Will refer again to cancer screen program 03/03/25 Assessment & Plan (11/04/2024 5:03 AM EST): -Patient smokes 1/2 - 1 pack per/day -Continue working on smoking cessation -Referred to lung cancer screening program at [facility], patient cancelled appointment for CT Assessment & Plan (03/14/2024 3:41 PM EDT): -Patient smokes 1/2 - 1 pack per/day -Continue working on smoking cessation -Referred to lung cancer screening program at [facility] Assessment & Plan (02/23/2024 6:41 AM EDT): -Patient smokes 1/2 - 1 pack per/day -Continue working on smoking cessation -Refer to lung cancer screening program at [facility] Assessment & Plan (02/09/2023 10:21 AM EDT): -Patient smokes 1/2 pack per/day -Continue working on smoking cessation -Patient will need Lung CA Screen at age 55 Resolved Problems Problem Noted Date Diagnosed Date Resolved Date Balanitis 02/08/2023 02/23/2024 Encounters Date Type Department Care Team Description 06/16/2025 Orders Only [facility] External Provider, [facility] 05/26/2025 9:15 AM EDT Office Visit [facility] [address] [place] [address] Anali Henry MD Primary hypertension (Primary Dx); Dyslipidemia; Type 2 diabetes mellitus with hyperglycemia, without long-term current use of insulin ([facility]/HCC); Chest congestion; Obstructive sleep apnea syndrome; Class 3 obesity (CMS/HCC); Metabolic dysfunction-associate d steatotic liver disease (MASLD); Psoriasis; Elevated CK; Tobacco dependence 05/26/2025 Travel 05/25/2025 Telephone [facility] [address] [place] [address] Anali Henry MD Chart Prep 05/18/2025 Refill [facility] [address] [place] [address] Martha Russo MD 05/15/2025 Refill [facility] [address] [place] [address] Anali Henry MD Type 2 diabetes mellitus with hyperglycemia, without long-term current use of insulin ([facility]/HCC) 04/20/2025 Telephone [facility] [address] [place] [address] Marisol Church, OD 04/08/2025 Travel 04/06/2025 Refill [facility] [address] [place] [address] Anali Henry MD 03/31/2025 Refill [facility] [address] [place] [address] Anali Henry MD from Last 3 Months Immunizations Immunization Administration Dates Next Due Hep A, Adult 10/07/1998 Hep A, ped/adol, 3 dose 03/01/2006 Hep B, adult 01/08/2017,03/06/2016,04/15/2014 Influenza injectable quadriv alent IIV4 with preservative 07/23/2018 Influenza, IIV3, injectable 07/27/2011,1 ,08/12/2009,10/07 Influenza, Split (incl. barrett fied surface antigen) 10/21/2012 Pneumococcal Polysaccharide PPSV23 03/19/2011 Tdap 11/04/2024,12/25/2012 Tetanus toxoid, adsorbed 11/07/2004 Social History Tobacco Use Types Packs/Day Years Used Date Smoking Tobacco: Every Day Cigarettes Passive Smoke Exposure: Current Smokeless Tobacco: Never Tobacco Cessation:Ready to Q uit: Not Asked; Counseling Given: Not Answered Alcohol Use Standard Drinks/Week Comments Defer 0 (1 standard drink = 0.6 oz pur e alcohol) Depression Answer Date Recorded Patient Health Questionnaire-9 Score 0 11/04/2024 Patient Health Questionnaire-9 Score 0 11/04/2024 Last PHQ-9: Questionnaire Data Not on file 1 Housing Stability Answer Date Recorded What is your housing situation today? I have tran [place]on 05/26/[address] you li ve. Do you have problems with any of the following? None of the above 05/26/2025 Food Insecurity Answer Date Recorded Within the past 12 months, y ou worried that your food would run out before you got money to buy more: Never True 05/26/2025 Within the past 12 months,th e food you bought just didn't last and you didn't have enough money to get more: Never True Transportation Answer Date Recorded In the past 12 months, has l ack of transportation kept you from medical appts, meetings, work or from getting things needed for daily living? No 05/26/2025 Utilities Answer Date Recorded In the past 12 months, has t he electric, gas, oil or water company threatened to shut off services in your home? No 05/26/2025 Depression Answer Date Recorded Patient Health Questionnaire-2 Score 0 11/04/2024 Internet Access Answer Date Recorded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
--- OUTSIDE RECORDS SUMMARY | 2025-06-30 20:59 | XMS_ITS | Encounter Summary ---
Author Organization [employer] Address [address] [facility] 7t [place] [address] Care Team Providers Care Harness Repairer Name Role Phone Anali Henry MD Primary Care Provider [phone] Encounter Details Date Type Department Care Team (Late st Contact Info) Description 11/04/2024 Orders Only [facility] [address] [place] [address] Anali Henry MD [address] [place], [place] [phone] Dyslipidemia (Primary Dx); Elevated CK Social History Tobacco Use Types Packs/Day Years [...] AM EDT documented as of this encounter Functional Status * Over the past 2 weeks, how often have you been bothered by any of the following problems? Question Answer Date of Assessment Author Patient Health Questionnaire -2 Score 0 11/04/2024 9:28 AM Negin Dior MA * Little interest or pleasure in doing things Answer Date of Assessment Author Not at all 11/04/2024 9:28 AM Mauricio Dior MA * Feeling down, depressed, or hopeless Answer Date of Assessment Author Not at all 11/04/2024 9:28 AM Mauricio Dior MA * Trouble falling or staying asleep, or sleeping too much Answer Date of Assessment Author Not at all 11/04/2024 9:28 AM Mauricio Dior MA * Feeling tired or having little energy Answer Date of Assessment Author Not at all 11/04/2024 9:28 AM Mauricio Dior MA * Poor appetite or overeating Answer Date of Assessment Author Not at all 11/04/2024 9:28 AM Mauricio Dior MA * Feeling bad about yourself - or that you are a failure or have let yourself or your family down Answer Date of Assessment Author Not at all 11/04/2024 9:28 AM Mauricio Dior MA * Trouble concentrating on things, such as reading the newspaper or watching television Answer Date of Assessment Author Not at all 11/04/2024 9:28 AM Mauricio Dior MA * Moving or speaking so slowly that other people could have noticed? Or the opposite - being so fidgety or restless that you have been moving around a lot more than usual. Answer Date of Assessment Author Not at all 11/04/2024 9:28 AM Mauricio Dior MA * Thoughts that you would be better off or hurting yourself in some way Answer Date of Assessment Author Not at all 11/04/2024 9:28 AM Mauricio Dior MA * Patient Health Questionnaire-9 Score Answer Date of Assessment Author 0 11/04/2024 9:28 AM Mauricio Dior MA documented as of this encounter Plan of Treatment Scheduled Orders Name Type Priority Associated Diagnoses Orde r Schedule Comprehensive Metabolic Panel Lab Routine Dyslipidemia Elevated CK Expected: 11/18/2024, Expires: 11/04/2025 Lipid Panel with Reflex to Direct LDL Lab Routine Dyslipidemia Elevated CK Expected: 11/18/2024 (Approximate), Expires: 11/04/2025 Creatine Kinase, Total Lab Routine Dyslipidemia Elevated CK Expected: 11/18/2024, Expires: 11/04/2025 documented as of this encounter Visit Diagnoses Diagnosis Dyslipidemia- Primary Other and unspecified hyperlipidemia Elevated CK Other nonspecific abnormal serum enzyme levels documented in this encounter Additional Health Concerns Assessment Noted Time PHQ-9 Depression Total Score: 0 11/04/20 24 9:28 AM EST documented as of this encounter Care Teams Harness Repairer Relationship Specialty Start Date End Date Anali Henry MD [address] [place] [address] PCP - General Family Medicine 09/04/12 documented as of this encounter
--- OUTSIDE RECORDS SUMMARY | 2025-06-30 20:59 | XMS_ITS | Encounter Summary ---
Author Organization [employer] Address [address] [facility] 7t [place] [address] Care Team Providers Care Assembler Metal Building Name Role Phone Anali Henry MD Primary Care Provider [phone] Reason for Visit * Reason Onset Date Comments returning call to schedule appt 09/15/2024 Encounter Details Date Type Department Care Team ([facility] Contact Info) Description 09/15/2024 Telephone [facility] [address] [place], [place] [phone] Robert Guerrero DDS [address] [place] [address] returning call to schedule appt Social History Tobacco Use Types Packs/Day Years Used Date Smoking Tobacco: Every Day Cigarettes Passive Smoke Exposure: Current Smokeless Tobacco: Never Alcohol Use Standard Drinks/Week Comments Defer 0 (1 standard drink = 0.6 oz pur e alcohol) Housing Stability Answer Date Recorded What is [...] Answer Date Recorded Patient Health Questionnaire-2 Score 1 02/08/2023 Sex and Gender Information Value Date Recorded Sex Assigned at Male 09/04/2022 10:15 AM EDT Legal Sex Male 10:15 AM EDT Gender Identity Male 09/04/2022 10:15 AM EDT Sexual Orientation Lesbian or Meza 09/04/2022 10 :15 AM EDT documented as of this encounter Miscellaneous Notes * Telephone Encounter - Nela Rodriguez - 09/24/2024 11:18 AM EST Patient returned call placed on 09/19 for extraction appt with Dr. Guerrero. Per front office clerk there arecurrently no appts available. hotel front desk clerk will reach out to patient again to schedule. Patient has been informed DR * Telephone Encounter - Jovita Dyer - 09/15/2024 8:57 AM EST Good morning patient called his still having pain and still has an infection. His asking for more medicine. documented in this encounter Plan of Treatment Not on file documented as of this encounter Visit Diagnoses Not on filedocumented in this encounter Care Teams Assembler Metal Building Relationship Specialty Start Date End Date Anali Henry MD [address] [place] [phone] PCP - General Family Medicine 09/04/12 documented as of this encounter
--- OUTSIDE RECORDS SUMMARY | 2025-06-30 20:59 | XMS_ITS | Encounter Summary ---
Author Organization [employer] Address [address] [facility] 7t [place] [address] Care Team Providers Care Straightener Hand Name Role Phone Anali Henry MD Primary Care Provider [phone] Reason for Referral * Imaging (Routine) - Closed Specialty Diagnoses / Procedures Referred By Contruthie chahal Referred To Contact Radiology Diagnoses Metabolic dysfunction-associated steatotic liver disease (MASLD) Procedures US Abdomen Comp w elastography Anali Henry MD [address] [place] [address] Phone: tel: fax: [address] Phone: tel: fax: Referral ID Status Reason Start Date Expiration Date Visits Re quested Visits Authorized [id number] Closed 02/23/2024 02/22/2025 1 1 Encounter Details Date Type Department Care Team (Late st Contact Info) Description 02/23/2024 Orders Only [facility] [address] [place], [place] [phone] Anali Henry MD [address] [place], [place] [phone] Metabolic dysfunction-associated steatotic liver disease (MASLD) (Primary Dx) Social History Tobacco Use Types Packs/Day Years Used Date Smoking Tobacco: Every Day Cigarettes Passive Smoke Exposure: Current Smokeless Tobacco: Never Housing Stability Answer Date Recorded What is [...] on file documented as of this encounter Procedures Procedure Name Priority Date/Time Associated Diagnosis Comments HIGH SENSITIVITY TROPONIN I Routine 08/23/2024 10:23 PM EDT Metabolic dysfunction-associ ated steatotic liver disease (MASLD) CBC WITH AUTO DIFFERENTIAL Routine 08/23/2024 10:23 PM EDT Metabolic dysfunction-associ ated steatotic liver disease (MASLD) PROTHROMBIN TIME-INR Routine 08/23/2024 10:23 PM EDT Metabolic dysfunction-associ ated steatotic liver disease (MASLD) MAGNESIUM Routine 08/23/2024 10:23 PM EDT Metabolic dysfunction-associ ated steatotic liver disease (MASLD) LIPASE Routine 08/23/2024 10:23 PM EDT Metabolic dysfunction-associ ated steatotic liver disease (MASLD) COMPREHENSIVE METABOLIC PANEL Routine 08/23/2024 10:23 PM EDT Metabolic dysfunction-associ ated steatotic liver disease (MASLD) US ABDOMEN COMPLETE WITH ELASTOGRAPHY Routine 03/12/2024 10:15 AM EDT Metabolic dysfunction-associ ated steatotic liver disease (MASLD) documented in this encounter Results * High Sensitivity Troponin I (08/23/2024 10:23 PM EDT) [facility] TROPONIN I HIGH SENSITIVITY <2.7 <3.5 - 35.0 ng/L [facility] Comment:The [place]ne high sens itivity Troponin-I results should beused in conjunction with other diagnostic information suchas ECG, clinical observations and information, and patientsymptoms to aid in the diagnosis of SC. 08/23/2024 10:2 3 PM EDT 08/23/2024 10:28 PM EDT Generic External Data Provider LAB BLOOD ORDERAB LES Final Result Performing Organization Address City/[facility]/ZIP Co de Phone Number [facility] [address] [place] [phone] * Lipase (08/23/2024 10:23 PM EDT) [facility] Lipase 43 8 - 78 U/L [facility] 08/23/2024 10:2 3 PM EDT 08/23/2024 10:28 PM EDT Generic External Data Provider LAB BLOOD ORDERAB LES Final Result Performing Organization Address [facility]/ZIP Co de Phone Number [facility] [address] [place] [phone] * Magnesium (08/23/2024 10:23 PM EDT) [facility] Magnesium 2.2 1.6 - 2.6 mg/dL [facility] 08/23/2024 10:2 3 PM EDT 08/23/2024 10:28 PM EDT us Generic External Data Provider LAB BLOOD ORDERAB LES Final Result [facility] [address] [place] [phone] * (ABNORMAL) Comprehensive Metabolic Panel (08/23/2024 10:23 PM EDT) Sodium 143 135 - 145 mmol/L [facility] Potassium 3.8 3.3 - 5.1 mmol/L [facility] Chloride 110(H) 96 - 108 mmol/L [facility] Carbon Dioxide 25 22 - 29 mmol/L [facility] Anion Gap 12 12 - 20 [facility] Urea Nitrogen (BUN) 16 9 - 16 mg/dL [facility] Creatinine, Serum 0.75 0.5 - 1.4 mg/dL [facility] Creatinine Clr Calc Pharmacy 130.1 [facility] Comment:eGFR (calculated fro m the MDRD study equation) and eCrCl(calculated from the Cockcroft-Gault equation) are based ondifferent parameters and may not yield comparable results.If eCrCl result is absurd, please check patient'sheight/weight. Estimated Glomerular Filt Rate >60 [facility] Comment:NOTE: For -Am erican individuals, multiply the result by 1.210.Chronic Kidney Disease: Estimated GFR < 60 mL/min/1.74d9Yniujj Kidney Disease: Estimated GFR < 15 mL/min/1.73m2 Glucose 144(H) 60 - 115 mg/dL [facility] Calcium 8.9 8.4 - 10.2 mg/dL [facility] Bilirubin, Total 0.2 0.0 - 1.0 mg/dL [facility] Aspartate Amino Transferase 27 5 - 37 U/L [facility] Alanine Aminotransferase 36 0 - 40 U/L [facility] Total Protein 6.8 6.5 - 8.0 g/dL [facility] Albumin Level 4.0 3.5 - 5.0 g/dL [facility] Alkaline Phosphatase 73 39 - 117 U/L [facility] 08/23/2024 10:2 3 PM EDT 08/23/2024 10:28 PM EDT Generic External Data Provider LAB BLOOD ORDERAB LES Final Result Performing Organization Address [facility] Co de Phone Number [facility] [address] [place] [phone] * (ABNORMAL) Prothrombin Time-INR (08/23/2024 10:23 PM EDT) Prothrombin Time 9.8(L) 10.9 - 12.4 SEC [facility] INTERNATIONAL NORM RATIO 0.8(L) 0.9 - 1.1 [facility] Comment:INTERNATIONAL NORMAL IZED RATIO (INR) REFERENCE RANGES Reference RangeFor patients not on anticoagulant therapy: 0.9 - 1.1INR ranges for oral anticoagulanttherapy:For prevention and treatment of venous thrombosis and pulmonary embolism: 2.0 - 3.0For acute myocardial infarction with aspirin therapy: 2.0 - 3.0For acute myocardial infarction without aspirin therapy: 3.0 - 4.0For patients with mechanical prosthetic heart valves: 2.5 - 3.5 08/23/2024 10:2 3 PM EDT 08/23/2024 10:28 PM EDT us Generic External Data Provider LAB BLOOD ORDERAB LES Final Result Performing Organization Address [facility] de Phone Number [facility] [address] [place] [phone] * (ABNORMAL) CBC auto differential (08/23/2024 10:23 PM EDT) White Blood Count 10.9(H) 4.8 - 10.8 X10*3/uL [facility] Red Blood Count 4.91 4.60 - 5.80 X10*6/uL [facility] Hemoglobin 15.8 14.0 - 18.0 g/dl [facility] Hematocrit 46.9 42.0 - 52.0 % [facility] Mean Corpuscular Volume 95.5 80.0 - 98.0 fL [facility] Mean Corpuscular Hemoglobin 32.2 27.0 - 33.0 pg [facility] Mean Corpuscular HGB Conc 33.7 31.0 - 36.0 g/dl [facility] Red Cell Distribution Width 12.6 11.0 - 16.0 % [facility] Platelet Count 266 160 - 400 X10*3/uL [facility] Mean Platelet Volume 10.0 9.4 - 12.4 fL [facility] Neutrophils Percent Auto 59.2 45 - 73 % [facility] Imm Gran Pct Auto 0.3 0.0 - 0.4 % [facility] Lymphocytes Percent Auto 31.3 20 - 40 % [facility] Monocytes Percent Auto 6.5 2 - 11 % [facility] Eosinophils Percent Auto 2.1 0 - 4 % [facility] Basophils Percent Auto 0.6 0 - 2 % [facility] NRBC Pct Auto 0.0 0.0 - 0.2 /100WBC [facility] Neutrophils Absolute Auto 6.4 2.0 - 8.3 x10*3/uL [facility] Imm Gran Abs Auto 0.03 0.00 - 0.03 X10*3/uL [facility] Lymphocytes Absolute Auto 3.4 1.2 - 4.9 X10*3/uL [facility] Monocytes Absolute Auto 0.7 0.1 - 1.2 X10*3/uL [facility] Eosinophils Absolute Auto 0.2 0.0 - 0.4 X10*3/uL [facility] Basophils Absolute Auto 0.1 0.0 - 0.2 X10*3/uL [facility] NRBC Abs Auto 0.000 0.0 - 0.012 X10*3/uL [facility] 08/23/2024 10:2 3 PM EDT 08/23/2024 10:28 PM EDT us Generic External Data Provider LAB BLOOD ORDERAB LES Final Result [facility] [address] [place] [phone] * US Abdomen Comp w elastography (03/12/2024 10:15 AM EDT) Anatomical Region Laterality Modality Abdomen Ultrasound 03/12/2024 10:1 5 AM EDT Narrative 03/17/2024 5:46 PM EDT [address] [address] Ultrasound Report Signed Patient: Cholo Rivas MR#: [id number] 0 : 1970 Acct:[id number] Age/Sex: 54 / M ADM Date: 03/12/24 Loc: HO.US Attending Dr: Anali Henry MD Ordering Physician: Anali Henry MD Date of Service: 03/12/24 Procedure(s): US abdomen comp w elastography Accession Number(s): [id number] cc: Anali Henry MD EXAMINATION: US COMPLETE ABDOMEN WITH LIVER ELASTOGRAPHY CLINICAL INFORMATION: Obesity. COMPARISON: CT abdomen and pelvis dated 12/16/2022; abdominal ultrasound dated 07/17/2017. TECHNIQUE: Real-time imaging of the abdominal viscera. Noninvasive ultrasound liver fibrosis assessment is performed using Lin ElastPQ point quantification shear wave elastography (2D-SWE) with a C5-2 MHz transducer. Multiple elastography samples are obtained. FINDINGS: PANCREAS: Normal. The visualized pancreatic head and body are normal in appearance. The remainder of the pancreas is obscured from visualization by the overlying bowel gas. ABDOMINAL AORTA: The proximal, middle, and distal aortic segments are normal in caliber. INFERIOR VENA CAVA: Visualized portions are normal. LIVER: The liver demonstrates normal contour and generally increased echogenicity. No focal lesion or intrahepatic biliary duct dilatation. The right lobe measures 18.1 cm in length. The left lobe measures 12.4 cm in length. Portal flow is towards the liver (hepatopetal). Shear wave liver elastography median stiffness is 1.07 m/s (reference: normal median stiffness is 1.3 m/s or less). IQR/median stiffness to assess sampling precision is 0.16 (reference: good quality data set is IQR/median stiffness of 0.15 or less). GALLBLADDER: Normal. The gallbladder is physiologically distended without evidence of stones, sludge, polyps, wall thickening or pericholecystic fluid. COMMON BILE DUCT: Normal in caliber measuring 0.4 cm in diameter. RIGHT KIDNEY: Normal. No hydronephrosis. No renal calculi or focal parenchymal lesions. The kidney measures 10.3 cm in maximum dimension. LEFT KIDNEY: At the upper pole, a 2.7 cm in maximal diameter benign, simple cyst is seen, for which no imaging follow-up is recommended. No hydronephrosis. No renal calculi or focal parenchymal lesions. The kidney measures 10.9 cm in maximum dimension. SPLEEN: Normal. The spleen measures 11.3 cm in maximum dimension. FREE FLUID: None. US/US abdomen comp w elastography IMPRESSION: 1. There is mild hepatomegaly. 2. There is generalized increase in hepatic echotexture, consistent with fatty infiltration or hepatocellular disease. Please correlate clinically. No focal hepatic mass or intrahepatic biliary dilatation is seen. 3. Liver elastography: Although measurements suggest a high probability of normal liver stiffness, there is statistical variability of the sampling which decreases accuracy. REFERENCE: Society of Radiologists in Ultrasound Liver Stiffness Thresholds (2020): LIVER STIFFNESS THRESHOLDS: *Liver Stiffness equal or less than 1.3 m/s: High probability of being normal. *Liver Stiffness less than 1.7 m/s: In the absence of other known clinical signs, rules out compensated advanced chronic liver disease. *Liver Stiffness 1.7-2.1 m/s: Suggestive of compensated advanced chronic liver disease but need further test for confirmation. *Liver Stiffness over 2.1 m/s: Rules in compensated advanced chronic liver disease. *Liver Stiffness over 2.4 m/s: Suggestive of clinically significant portal hypertension. QUALITY OF DATA SET: *IQR/Median value equal or less than 0.15 implies a quality data set. *IQR/Median value over 0.15 implies a poor quality data set. SIGNIFICANT CHANGE FROM PRIOR EXAM: Significant change if liver stiffness measurement is 10% or greater from prior exam. OTHER CONSIDERATIONS: The stage of liver fibrosis may be overestimated in the setting of acute hepatitis, liver inflammation, elevated liver function tests, hepatic vascular congestion, obstructive cholestasis, non-fasting state, and infiltrative diseases such as amyloidosis and lymphoma. In some patients with NAFLD, the liver stiffness thresholds for compensated advanced chronic liver disease may be lower. In causes other than viral hepatitis and NAFLD, liver stiffness thresholds are not well established. Dictated By: Mike Aguilar MD Signed By: <Electronically signed by Mike Aguilar MD in OV> 03/17/24 1743 DD/ 1015 TD/TT: Bus Transportation Manager: CESAR Procedure Note Donotuseinterpreter, Image - 03/17/[address] [address] Ultrasound Report Signed Patient: Cholo RivasMR#: [id number] 0 : 1970Acct:[id number] Age/Sex: 54 / MADM Date: 03/12/24 Loc: HO.US Attending Dr: Anali Henry MD Ordering Physician: Anali Henry MD Date of Service: 03/12/24 Procedure(s): US abdomen comp w elastography Accession Number(s): [id number] cc: Anali Henry MD EXAMINATION: US COMPLETE ABDOMEN WITH LIVER ELASTOGRAPHY CLINICAL INFORMATION: Obesity. COMPARISON: CT abdomen and pelvis dated 12/16/2022; abdominal ultrasound dated 07/17/2017. TECHNIQUE: Real-time imaging of the abdominal viscera. Noninvasive ultrasound liver fibrosis assessment is performed using Lin ElastPQ point quantification shear wave elastography (2D-SWE) with a C5-2 MHz transducer. Multiple elastography samples are obtained. FINDINGS: PANCREAS: Normal. The visualized pancreatic head and body are normal in appearance. The remainder of the pancreas is obscured from visualization by the overlying bowel gas. ABDOMINAL AORTA: The proximal, middle, and distal aortic segments are normal in caliber. INFERIOR VENA CAVA: Visualized portions are normal. LIVER: The liver demonstrates normal contour and generally increased echogenicity. No focal lesion or intrahepatic biliary duct dilatation. The right lobe measures 18.1 cm in length. The left lobe measures 12.4 cm in length. Portal flow is towards the liver (hepatopetal). Shear wave liver elastography median stiffness is 1.07 m/s (reference: normal median stiffness is 1.3 m/s or less). IQR/median stiffness to assess sampling precision is 0.16 (reference: good quality data set is IQR/median stiffness of 0.15 or less). GALLBLADDER: Normal. The gallbladder is physiologically distended without evidence of stones, sludge, polyps, wall thickening or pericholecystic fluid. COMMON BILE DUCT: Normal in caliber measuring 0.4 cm in diameter. RIGHT KIDNEY: Normal. No hydronephrosis. No renal calculi or focal parenchymal lesions. The kidney measures 10.3 cm in maximum dimension. LEFT KIDNEY: At the upper pole, a 2.7 cm in maximal diameter benign, simple cyst is seen, for which no imaging follow-up is recommended. No hydronephrosis. No renal calculi or focal parenchymal lesions. The kidney measures 10.9 cm in maximum dimension. SPLEEN: Normal. The spleen measures 11.3 cm in maximum dimension. FREE FLUID: None. US/US abdomen comp w elastography IMPRESSION: 1. There is mild hepatomegaly. 2. There is generalized increase in hepatic echotexture, consistent with fatty infiltration or hepatocellular disease. Please correlate clinically. No focal hepatic mass or intrahepatic biliary dilatation is seen. 3. Liver elastography: Although measurements suggest a high probability of normal liver stiffness, there is statistical variability of the sampling which decreases accuracy. REFERENCE: Society of Radiologists in Ultrasound Liver Stiffness Thresholds (2020): LIVER STIFFNESS THRESHOLDS: *Liver Stiffness equal or less than 1.3 m/s: High probability of being normal. *Liver Stiffness less than 1.7 m/s: In the absence of other known clinical signs, rules out compensated advanced chronic liver disease. *Liver Stiffness 1.7-2.1 m/s: Suggestive of compensated advanced chronic liver disease but need further test for confirmation. *Liver Stiffness over 2.1 m/s: Rules in compensated advanced chronic liver disease. *Liver Stiffness over 2.4 m/s: Suggestive of clinically significant portal hypertension. QUALITY OF DATA SET: *IQR/Median value equal or less than 0.15 implies a quality data set. *IQR/Median value over 0.15 implies a poor quality data set. SIGNIFICANT CHANGE FROM PRIOR EXAM: Significant change if liver stiffness measurement is 10% or greater from prior exam. OTHER CONSIDERATIONS: The stage of liver fibrosis may be overestimated in the setting of acute hepatitis, liver inflammation, elevated liver function tests, hepatic vascular congestion, obstructive cholestasis, non-fasting state, and infiltrative diseases such as amyloidosis and lymphoma. In some patients with NAFLD, the liver stiffness thresholds for compensated advanced chronic liver disease may be lower. In causes other than viral hepatitis and NAFLD, liver stiffness thresholds are not well established. Dictated By: Mike Aguilar MD Signed By: <Electronically signed by Mike Aguilar MD in OV> 03/17/24 1743 DD/ 1015 TD/TT: Bus Transportation Manager: CESAR Authordmitry Provider Result Type Result Stat us Anali Henry MD IMG US PROCEDURES Final Result documented in this encounter Visit Diagnoses Diagnosis Metabolic dysfunction-associated steatotic liver disease (MASLD)- Primary documented in this encounter Care Teams Straightener Hand Relationship Specialty Start Date End Date Anali Henry MD [address] [place] [phone] PCP - General Family Medicine 09/04/12 documented as of this encounter
--- OUTSIDE RECORDS SUMMARY | 2025-06-30 20:59 | XMS_ITS | Encounter Summary ---
Author Organization [employer] Address 75 [facility] 7t [place] [address] Care Team Providers Care Bar Helper Name Role Phone Anali Henry MD Primary Care Provider [phone] Reason for Visit * Reason Comments Med Refill Encounter Details Date Type Department Care Team ([facility] st Contact Info) Description 03/31/2025 Refill [facility] MEDICINE [address] [place] [address] Anali Henry MD [address] [place], [place] [id number] Social History Tobacco Use Types Packs/Day Years [...] documented as of this encounter Care Teams Bar Helper Relationship Specialty Start Date End Date Anali Henry MD [address] [place] [address] PCP - General Family Medicine 09/04/12 documented as of this encounter
--- OUTSIDE RECORDS SUMMARY | 2025-06-30 20:59 | XMS_ITS | Encounter Summary ---
Author Organization [employer] Address 75 [facility] 7t [place] [address] Care Team Providers Care Vulcanizing Press Operator Name Role Phone Anali Henry MD Primary Care Provider [phone] Encounter Details Date Type Department Care Team (Late st Contact Info) Description 11/07/2024 Orders Only [facility] MEDICINE [address] [place], [place] [phone] Anali Henry MD [address] [place], [place] [phone] Social History Tobacco Use Types Packs/Day Years [...] documented as of this encounter Care Teams Vulcanizing Press Operator Relationship Specialty Start Date End Date Anali Henry MD [address] [place] [address] PCP - General Family Medicine 09/04/12 documented as of this encounter
--- OUTSIDE RECORDS SUMMARY | 2025-06-30 20:59 | XMS_ITS | Encounter Summary ---
Author Organization [employer] Address 75 [facility] 7t [place] [address] Care Team Providers Care Bss Solution Architect Name Role Phone Anali Henry MD Primary Care Provider [phone] Reason for Visit * Reason Onset Date Comments Nurse Triage 03/06/2024 Encounter Details Date Type Department Care Team ([facility] st Contact Info) Description 03/06/2024 Telephone [facility] MEDICINE [address] [place] [address] Anali Henry MD [address] [place] [address] Nurse Triage Social History Tobacco Use Types Packs/Day Years [...] encounter Miscellaneous Notes * Telephone Encounter - Carrol Martin RN - 03/06/2024 8:49 AM EDT Call to [facility]olo Rivas, reports having issues with constipation. Per pt had 3 days of now BM. Per pthad 4 tbsp of Milk of magnesium. Per pt had blood when wiping yesterday. Not mixed in stool. No fever. Per pt denies any nausea or vomiting. Per pt also has noticed some weight loss but cannot say current weight. Pt advised that no appts with PCP at this time for the entire month of March. Pt offeredto be booked with a team provider to discuss current concerns. Pt declines as only wants to see PCP. Pt advised will send note to update PCP on current issues to advise team of any other options for plan of care. Pt already has follow up with PCP in May. Advised can call weekly to see if any cancel lations on PCP calendar. Reviewed home care advise, ER precautions and reasons to call back. Protocol Used: Constipation (Adult) Protocol-Based Disposition: See in Office or Video Visit within 2 Weeks Positive Triage Question: * Minor bleeding from rectum (e.g., blood just on toilet paper, few drops, streaks on surface of normal formed BM) occurs more than twice * All higher-acuity triage questions were negative Care Advice Discussed: * Reassurance and Education - Constipation * High Fiber Diet * Drink Adequate Liquids * Reasons To Call Back - Abdomen swelling, vomiting or fever occur - Constant or increasing abdomen pain - You become worse * Telephone Encounter - Martha Tony - 03/06/2024 8:36 AM EDT Symptoms: Constipation, Abdominal Pain - Male, Weight Loss Outcome: Schedule an urgent appointment (within 1 hour) or talk to a nurse or provider soon Reason: Constant stomach pain The caller accepted this outcome documented in this encounter Plan of Treatment Not on file documented as of this encounter Visit Diagnoses Not on filedocumented in this encounter Care Teams Bss Solution Architect Relationship Specialty Start Date End Date Anali Henry MD [address] [place] [address] PCP - General Family Medicine 09/04/12 documented as of this encounter
--- OUTSIDE RECORDS SUMMARY | 2025-06-30 20:59 | XMS_ITS | Encounter Summary ---
Author Organization [employer] Address 75 [facility] 7t [place] [address] Care Team Providers Care Senior Geologist Name Role Phone Anali Henry MD Primary Care Provider [phone] Reason for Visit * Reason Onset Date Comments Nurse Triage 12/13/2023 Encounter Details Date Type Department Care Team (Late st Contact Info) Description 12/13/2023 Telephone [facility] MEDICINE [address] [place] [address] Anali Henry MD 230 [place] [address] Nurse Triage Social History Tobacco Use Types Packs/Day Years Used Date Smoking Tobacco: Every Day Cigarettes Passive Smoke Exposure: Current Smokeless Tobacco: Never Depression Answer Date Recorded Patient Health Questionnaire-2 Score 1 02/08/2023 Sex and Gender Information Value Date Recorded Sex Assigned at Male 09/04/2022 10:15 AM EDT Legal Sex Male 10:15 AM EDT Gender Identity Male 09/04/2022 10:15 AM EDT Sexual Orientation Lesbian or Meza 09/04/2022 10 :15 AM EDT documented as of this encounter Miscellaneous Notes * Telephone Encounter - Martha Tony - 12/13/2023 1:22 PM EST Symptom: Heartbeat Symptoms (Fast, Slow, or Irregular) Outcome: Schedule a same-day appointment or talk to a nurse or provider today Reason: Caller denied all higher acuity questions The caller accepted this outcome Pt is requesting appt documented in this encounter Plan of Treatment Not on file documented as of this encounter Visit Diagnoses Not on filedocumented in this encounter Care Teams Senior Geologist Relationship Specialty Start Date End Date Anali Henry MD [address] [place] [address] PCP - General Family Medicine 09/04/12 documented as of this encounter
--- OUTSIDE RECORDS SUMMARY | 2025-06-30 20:59 | XMS_ITS | Encounter Summary ---
Author Organization [employer] Address 75 [facility] 7t [place] [address] Care Team Providers Care Buffer Chrome Name Role Phone Anali Henry MD Primary Care Provider [phone] Reason for Visit * Reason Onset Date Comments ER Follow-up 08/25/2024 Encounter Details Date Type Department Care Team ([facility] Contact Info) Description 08/25/2024 Telephone [facility] MEDICINE [address] [place] [address] Anali Henry MD [address] [place] [address] ER Follow-up Social History Tobacco Use Types Packs/Day Years [...] encounter Miscellaneous Notes * Telephone Encounter - [facility] - 08/25/2024 9:00 AM EDT Patient calling to report ED visit on : Date: 08/23/24 Hospital: [facility] Seen for: Symptoms of a stroke Patient advised will forward to team nurse for follow up documented in this encounter Plan of Treatment Not on file documented as of this encounter Visit Diagnoses Not on filedocumented in this encounter Care Teams Buffer Chrome Relationship Specialty Start Date End Date Anali Henry MD [address] [place] [id number] PCP - General Family Medicine 09/04/12 documented as of this encounter
== END ==
LOC: HO.SL 19:30
PROVIDERS: PCP Family Medicine; Visit Provider Family Medicine
DX: G47.33 Obstructive sleep apnea (adult) (pediatric) (principal)
CPT/HCPCS: 95810

== ENCOUNTER 2025-07-17 10:06 | Outpatient (AMB) | payer OTHER, SELFPAY ==
--- NOTE | 2025-07-17 08:03 | A.OFFVIS_ITS ---
Intake Visit Reasons: Current Smoker Allergies hazelnut Allergy (Severe, Verified 06/16/25 09:34) ANAPHYLAXIS meperidine (Demerol) Allergy (Unknown, Verified 06/16/25 09:34) Dizziness From TORADOL Allergy (Unknown, Uncoded 07/18/23 22:43) HIVES HPI HPI Current Smoker: Details: Initial visit for this 55yo smoker with a 20PYH. Patient started smoking at age 21 for 27 years at 3/4ppd. . Notes marijuana use. 2 x week. Denies second hand smoke exposure. Denies exposure to chemicals or substances like asbestos. . Denies known family history of lung cancer. Denies personal history of cancers. Denies chest CT in last year. . Denies recent travel outside the [place]. Denies recent respiratory illness or recent hospitalization for respiratory issues. History testing positive for COVID. Admits receiving COVID Vaccine. . Denies fever, chills, new/worsening cough, hemoptysis, hoarseness or dysphagia. Denies significant chest pain, significant dyspnea or unintentional weight loss. Patient Lung Cancer Screening Questionnaire reviewed with patient by provider. . Shared Decision Making Completed. Patient meets criteria. Discussed in detail with patient, the risk vs benefit of LDCT screening. Patient consents to proceed with scan. Discussed smoking cessation. He is working towards quitting again. [facility] Medical History (Updated 07/17/25 @ 10:15 by Crissy Johnson PA-C) PTSD (post-traumatic stress disorder) HTN (hypertension) Type 2 diabetes mellitus without complication Nicotine dependence, cigarettes, uncomplicated Morbid obesity Psoriasis GERD (gastroesophageal reflux disease) Diverticulosis Tubular adenoma of colon Family history of pancreatic cancer Family history of colon cancer Scrotal mass Surgical History History of colonoscopy Family History Sister Breast cancer Ovarian cancer Maternal Aunt Colon cancer Family/Other Colon cancer Brother Pancreatic cancer Social History (Updated 07/17/25 @ 10:14 by Crissy Johnson PA-C) Alcohol intake: never Patient Tobacco Use Status: Current everyday Tobacco user Tobacco use type: Cigarette Years Smoked: (onset 21, 3/4ppd x 27yrs, 20PYH) Assessment & Plan Assessment & Plan (1) Nicotine dependence, cigarettes, uncomplicated: Comment: (onset 21, 3/4ppd x 27yrs, 20PYH) Code(s): F17.210 - Nicotine dependence, cigarettes, uncomplicated Category: Medical Plan: - SDM visit completed today in office. - Patient meets criteria for LDCT for lung cancer screening purposes and is asymptomatic. - Smoking cessation counseling offered. Patients can always call [phone]. - Will arrange for a LDCT scan of the chest for screening purposes at [facility]. - Risks, benefits, and alternatives were discussed in detail and the patient agrees to proceed. - Risks discussed include but are not limited to: radiation exposure, anxiety during testing and while awaiting results, false negatives, false positives and possibility of additional intervention such as further imaging or surgical procedures for benign disease. - Benefits are obviously detection of lung cancer at an early stage which can lead to improved outcomes. - Discussed the importance of screening program compliance with adherence to yearly LDCT scan as scheduled - or sooner interval scans for personalized scree dougie regimen. - Discussed follow up plan. Our office will send a letter discussing results and if needed set up phone call and office visit based on CT findings. - Patient educated on results categorization and the management decisions for suspicious findings potentially found on the screening LDCT scan. Any patient with a Lung RADS score of 3 or 4 will be reviewed by a multidisciplinary team at [facility] to form a plan of action in regards to scan findings. - If further work up is warranted for a suspicious lung finding this will be followed by the Lung Cancer Screening program in conjunction with the Thoracic Surgery Department at [facility]. - A copy of the office note and LDCT will be sent to the patient's PCP - as well as documentation on any associated further plans of care. - Incidental findings on LDCT are the PCP's responsibility. These findings are indicated with an S finding on the LDCT Assessment. A note discussing the findings will be sent to the PCP who is then responsible for further management. - All questions answered.? Coding Level of Care Code Lung Cancer Screening G0296 Diagnoses Nicotine dependence, cigarettes, uncomplicated F17.210
== END 2025-07-17 10:34 | disposition home or self-care (01) ==
LOC: HO.HPS 10:06
PROVIDERS: PCP Family Medicine; Referring Provider Family Medicine; Visit Provider Physician Assistant Medical
DX: F17.210 Nicotine dependence, cigarettes, uncomplicated (principal)
CPT/HCPCS: G0296

== ENCOUNTER 2025-07-17 10:22 | Outpatient (REF) | payer OTHER, SELFPAY ==
--- NOTE | ~2025-07-17 | CT_ITS ---
CLINICAL HISTORY: F17.210 - Nicotine dependence, cigarettes, uncomplicated Examination CT lung cancer screening History Screening examination performed for pulmonary nodules Technique Axial CT images of the chest using low-dose technique. Effective radiation dose total: 83.7 mGy-cm, CTDIvol 2.2 mGy. Referring provider counseled the patient on shared decision-making for LDCT screening. Additional counseling was provided on smoking cessation. Comparison: None available Findings: Lungs: No pulmonary nodules are emphysema Coronary artery calcifications: Mild Other: None Limited upper abdomen: Unremarkable Impression: LungRADS 1: Negative exam. Continue annual screening with low dose Chest CT in 12 months. ##L1# This document has been electronically signed by: Katrina Vogt MD on 07/17/2025 21:03:52
--- OUTSIDE RECORDS SUMMARY | 2025-07-17 11:51 | XMS_ITS | Encounter Summary ---
Author Organization [employer] Address 75 [facility] 7t [place] [address] Care Team Providers Care Motorized Squad Captain Name Role Phone Anali Henry MD Primary Care Provider [phone] Reason for Visit * Reason Onset Date Comments returning call to schedule appt 09/15/2024 Encounter Details Date Type Department Care Team ([facility] [address] Contact Info) Description 09/15/2024 Telephone [facility] ADULT DENTAL [address] [place], [place] [phone] Robert Guerrero DDS [address] [place] [address] returning call to schedule appt Social History [...] extraction appt with Dr. Guerrero. Per front end developer javascript html css there arecurrently no appts available. service desk specialist will reach out to patient again to schedule. Patient has been informed DR * Telephone Encounter - Jovita Dyer - 09/15/2024 8:57 AM EST Good morning patient called his still having pain and still has an infection. His asking for more medicine. documented in this encounter Plan of Treatment Upcoming Encounters Date Type Department Care Team (Late st Contact Info) Description 08/24/2025 10:00 AM EDT Office Visit [facility] MEDICINE [address] [place] [address] Anali Henry MD [address] [place] [address] documented as of this encounter Visit Diagnoses Not on filedocumented in this encounter Care Teams Motorized Squad Captain Relationship Specialty Start Date End Date Anali Henry MD [address] [place] [address] PCP - General Family Medicine 09/04/12 documented as of this encounter
--- OUTSIDE RECORDS SUMMARY | 2025-07-17 11:51 | XMS_ITS | Encounter Summary ---
Author Organization [employer] Address 75 [facility] 7t [place] [address] Care Team Providers Care Air Crew Member Name Role Phone Anali Henry MD Primary Care Provider [phone] Reason for Visit * Reason Onset Date Comments ER Follow-up 08/25/2024 Encounter Details Date Type Department Care Team ([facility] Contact Info) Description 08/25/2024 Telephone [facility] MEDICINE [address] [place] [address] Anali Henry MD [address] [place] [address] ER Follow-up Social History Tobacco Use Types [...] ED visit on : Date: 08/23/24 Hospital: [facility] Seen for: Symptoms of a stroke Patient advised will forward to team nurse for follow up documented in this encounter Plan of Treatment Upcoming Encounters Date Type Department Care Team (Late st Contact Info) Description 08/24/2025 10:00 AM EDT Office Visit [facility] MEDICINE [address] [place] [address] Anali Henry MD [address] [place] [address] documented as of this encounter Visit Diagnoses Not on filedocumented in this encounter Care Teams Air Crew Member Relationship Specialty Start Date End Date Anali Henry MD [address] [place] [address] PCP - General Family Medicine 09/04/12 documented as of this encounter
--- OUTSIDE RECORDS SUMMARY | 2025-07-17 11:51 | XMS_ITS | Encounter Summary ---
Author Organization [employer] Address 75 [facility] 7t [place] [address] Care Team Providers Care Beam Department Supervisor Name Role Phone Anali Henry MD Primary Care Provider [phone] Reason for Visit * Reason Onset Date Comments Nurse Triage 12/13/2023 Encounter Details Date Type Department Care Team (Late st Contact Info) Description 12/13/[address] [facility] MEDICINE [address] [place] [address] Anali Henry MD [address] [place] [address] Nurse Triage Social History Tobacco Use Types [...] Description 08/24/2025 10:00 AM EDT Office Visit [facility] MEDICINE [address] [place] [address] Anali Henry MD [address] [place] [address] documented as of this encounter Visit Diagnoses Not on filedocumented in this encounter Care Teams Beam Department Supervisor Relationship Specialty Start Date [place] [address] PCP - General Family Medicine 09/04/12 documented as of this encounter
--- OUTSIDE RECORDS SUMMARY | 2025-07-17 11:51 | XMS_ITS | Encounter Summary ---
Author Organization [employer] Address [address] [facility] 7t [place] [address] Care Team Providers Care Ortho/Prosthetic Aide Name Role Phone Anali Henry MD Primary Care Provider [phone] Reason for Visit * Reason Comments Med Refill Encounter Details Date Type Department Care Team ([facility] st Contact Info) Description 07/13/2025 Refill [facility] MEDICINE [address] [place] [address] Lety Brown MD [address] [place] [address] Social History Tobacco Use Types Packs/Day Years [...] Description 08/24/2025 10:00 AM EDT Office Visit [facility] MEDICINE [address] [place] [address] Anali Henry MD [address] [place] [address] documented as of this encounter Visit Diagnoses Not on filedocumented in this encounter Additional Health Concerns Assessment Noted Time PHQ-9 Depression Total Score: 0 11/04/20 24 9:28 AM EST documented as of this encounter Care Teams Ortho/Prosthetic Aide Relationship Specialty Start Date End Date Anali Henry MD [address] [place] [address] PCP - General Family Medicine 09/04/12 documented as of this encounter
--- OUTSIDE RECORDS SUMMARY | 2025-07-17 11:51 | XMS_ITS | Clinical Summary ---
Author Organization [employer] Address [address] [facility] [address] [place] [address] Care Team Providers Care Belt Sewer Name Role Phone Anali Henry MD Primary Care Provider [phone] Allergies Active Allergy Reactions Criticality Noted Date Comments Flavoring Agent (Non-Screening) 02/08/2023 Corylus Anaphylaxis High 03/14/2023 Meperidine 05/03/2015 Ketorolac Tromethamine Hives 02/08/2023 He does not have reaction with other NSAIDs Medications traZODone (Desyrel) 50 MG tablet Take 1 tablet by mouth at bed time. Active buPROPion (Wellbutrin) 75 MG tablet Take 75 mg by mouth in the morning. 01/26/20 23 Active clotrimazole (Lotrimin) 1 % cream clotrimazole 1 % topical cream APPLY 1 APPLICATION TOPICALLY 2 TIMES A DAY FOR 2 WEEKS Active cyanocobalamin (Vitamin B-12) 100 MCG tablet Take 1 tablet by mouth in the morning. Active ergocalciferol (Vitamin D-2) 1.25 MG (52566 UT) capsule Take by mouth. Act anayeli LORazepam (Ativan) 2 MG tablet TAKE 1/2 TABLET BY MOUTH TWICE A DAY NEEDED FOR ANXIETY. 01/30/20 23 Active mometasone (Elocon) 0.1 % ointment mometasone 0.1 % topical ointment 11/14/19 22 Active risperiDONE (RisperDAL) 1 MG tablet TAKE 1 TABLET BY MOUTH ONCE A DAY & 1/2 TABLET (0.5 MG) BY MOUTH DAILY NEEDED FOR AGITATION/PSYCH OSIS. 01/26/20 23 Active topiramate 50 MG tablet Take 1 tablet by mouth in the morning. 01/26/20 23 Active Blood Glucose Monitoring Suppl (FreeStyle Lite) w/Device kitIndications :Type 2 diabetes mellitus without complication, without long-term current use of insulin (CMS/HCC) 1 kit before breakfast and before evening meal. 1 kit 02/12/20 24 Active clobetasol (Temovate) 0.05 % cream Use thin layer to affected area once daily 60 g 11 02/12/20 24 Active omeprazole (PriLOSEC) [address] capsule Take 1 capsule (20 mg) by mouth before breakfast. TAKE 1 CAPSULE BY MOUTH EVERY DAY 90 capsule 3 05/27/20 24 Active Ultra-Care Lancets 30G misc USE DIRECTED TWICE DAILY 100 each 07/08/20 24 Active gabapentin (Neurontin) 100 MG capsule Take 1 capsule (100 mg) by mouth at bedtime. 30 capsule 08/04/20 24 025 Active acetaminophen (Tylenol) 500 MG tablet Take 1 tablet (500 mg) by mouth every 6 (six) hours if needed for mild pain for up to 20 doses. 20 tablet 09/04/20 24 Active guaiFENesin (Humibid 3) 400 MG tablet Take 1 tablet (400 mg) by mouth every 6 (six) hours if needed for cough. 30 tablet 1 09/11/20 24 Active rosuvastatin (Crestor) 5 MG tablet Take 1 tablet (5 mg) by mouth Once per day. 30 tablet 11/07/19 25 026 Active metFORMIN XR (Glucophage-XR ) 500 MG 24 hr tablet TAKE 2 TABLETS BY MOUTH TWICE DAILY. DO NOT CRUSH, CHEW OR SPLIT. 120 tablet 1 02/28/20 25 Active FREESTYLE LITE test stripIndicatio ns:Type 2 diabetes mellitus with hyperglycemia, without long-term current use of insulin (CMS/HCC) USE DIRECTED TO TEST TWICE DAILY 100 each 05/15/20 25 Active Jardiance 25 MG TAKE 1 TABLET BY MOUTH EVERY MORNING 30 tablet 3 05/19/20 25 Active Ozempic, 1 MG/DOSE, 4 MG/3ML solution pen-injectorIn dications:Type 2 diabetes mellitus with hyperglycemia, without long-term current use of insulin (CMS/HCC) Inject 1 mg under the skin 1 (one) time per week. 4 each 05/26/20 25 Active azithromycin (Zithromax) 250 MG tablet Take 2 tablets by mouth on Day 1, and 1 tablet daily from Day 2 to Day 5 6 tablet 05/26/20 25 Active lisinopril 40 MG tablet TAKE 1 TABLET (40 MG) BY MOUTH ONCE PER DAY. 30 tablet 1 07/08/20 25 Active Alcohol Swabs (Ultra-Care Alcohol Prep Pads) 70 % pads USE DIRECTED 100 each 10 07/14/20 25 Active Alcohol Swabs (Alcohol Pads) 70 % pads Use as directed 100 each 11 05/26/20 24 025 Discontinued lisinopril 40 MG tablet TAKE 1 TABLET (40 MG) BY MOUTH ONCE PER DAY. 30 tablet 2 04/07/20 25 025 Discontinued Active Problems Problem Noted Date Diagnosed Date [...] age 61 (and ?heart attack) -refer to mixing pan tender due to pt's risk factors and to [...] AM EDT): -calluses on feet -refer to community outreach manager for both diabetic foot care and hyperkeratotic [...] - Foot exam: 02/08/23 callus. Referring to community outreach manager Follow up in 3 mo or sooner [...] - Foot exam: 02/08/23 callus. Referring to community outreach manager Follow up in 3 mo or sooner if any problem arises Elevated CK 07/23/2018 Assessment & Plan (05/27/2025 9:45 AM EDT): - No increase, in fact decrease, in CPK with statin therapy - patient was referred to a channel opener for evaluation for myositis, but patient never kept appointment - chronic, possibly due to his weight Assessment & Plan (11/10/2024 8:43 AM EST): >>ASSESSMENT AND PLAN FOR INCREASED CREATINE KINASE LEVEL WRITTEN ON 02/08/2023 1:40 PM BY JOSE GUADARRAMA Due to CPK -patient has not been able to take Statin -consider Zetia -will refer to Cancer Registry Manager d/t increased cardiovascular event Assessment & Plan (11/10/2024 8:45 AM EST): - We have not started a statin therapy due to elevated CK - patient was referred to a channel opener for evaluation for myositis, but patient never [...] (02/23/2024 6:55 AM EDT): - Seen by [facility] in Jul 2023 Assessment & Plan [...] Assessment & Plan (03/03/2025 9:50 AM EDT): [facility] provider: [facility] Counseling Dx: ?bipolar or Schizoaffective disorder Current medications: Risperidone; bupropion; trazodone; lorazepam Continue current medications and counseling Assessment & Plan (11/04/2024 5:03 AM EST): [facility] provider: [facility] Counseling Dx: ?bipolar or Schizoaffective disorder Current medications: Risperidone; bupropion; trazodone; lorazepam Continue current medications and counseling Assessment & Plan (03/14/2024 3:48 PM EDT): [facility] provider: [facility] Counseling Dx: ?bipolar or Schizoaffective disorder Current medications: Risperidone; bupropion; trazodone; lorazepam Continue current medications and counseling Assessment & Plan (02/23/2024 6:42 AM EDT): [facility] provider: [facility] Counseling Dx: ?bipolar or Schizoaffective disorder Current medications: Risperidone, lorazepam Continue current medications and counseling Assessment & Plan (02/09/2023 10:28 AM EDT): [facility] provider: [facility] Counseling Dx: ?bipolar or Schizoaffective disorder Current [...] has not had a follow-up with previous Vacuum Drier Operator, would prefer a morning appointment. -Previously using mometasone and clobetasol ointment -Previously seeing Dr. Prescott, lost in follow-up -Referred to [facility] Assessment & Plan (03/05/2025 10:28 AM EDT): -Patient has not had a follow-up with previous Vacuum Drier Operator, would prefer a morning appointment. -Previously using mometasone and clobetasol ointment -Previously seeing Dr. Prescott, lost in follow-up -Referred to Dermatology Clinic Assessment & Plan (11/04/2024 9:45 AM EST): -Patient has not had a follow-up with previous Vacuum Drier Operator, would prefer a morning appointment. -Previously using mometasone and clobetasol ointment -Previously seeing Dr. Prescott, lost in follow-up -Will refer to Dermatology Clinic Assessment & Plan (02/23/2024 6:41 AM EDT): -Patient has not had a follow-up with previous Vacuum Drier Operator -Previously using mometasone and clobetasol ointment -Previously seeing Dr. Prescott, lost in follow-up -Will refer to Dermatology Clinic Assessment & Plan (02/09/2023 10:26 AM EDT): -Patient has not had a follow-up with previous Vacuum Drier Operator -Previously using mometasone and clobetasol ointment -Previously seeing Dr. Prescott, lost in follow-up -Will refer to Dermatology Clinic Dr. Kruger Tobacco dependence 10/21/2012 Assessment & Plan (05/27/2025 9:46 AM EDT): -Patient smokes 1/2 - 1 pack per/day -Continue working on smoking cessation -Referred to lung cancer screening program at [facility], appointment rescheduled for 07/17/25 at 10:30 am. Assessment & Plan (03/03/2025 9:47 AM EDT): -Patient smokes 1/2 - 1 pack per/day -Continue working on smoking cessation -Referred to lung cancer screening program at [facility], patient cancelled appointment for CT - Will refer again to cancer screen program 03/03/25 Assessment & Plan (11/04/2024 5:03 AM EST): -Patient smokes 1/2 - 1 pack per/day -Continue working on smoking cessation -Referred to lung cancer screening program at [facility], patient cancelled appointment for CT Assessment & Plan (03/14/2024 3:41 PM EDT): -Patient smokes 1/2 - 1 pack per/day -Continue working on smoking cessation -Referred to lung cancer screening program at [facility] Assessment & Plan (02/23/2024 6:41 AM EDT): -Patient smokes 1/2 - 1 pack per/day -Continue working on smoking cessation -Refer to lung cancer screening program at [facility] Assessment & Plan (02/09/2023 10:21 AM EDT): -Patient smokes 1/2 pack per/day -Continue working on smoking cessation -Patient will need Lung CA Screen at age 55 Resolved Problems Problem Noted Date Diagnosed Date Resolved Date Hiraanitis 02/08/2023 02/23/2024 Encounters Date Type Department Care Team Description 07/13/2025 Refill [facility] [address] [place] [address] Lety Brown MD 07/07/2025 Refill [facility] [address] [place] [address] Anali Henry MD 06/16/2025 Orders Only [facility] External Provider, [facility] 05/26/2025 9:15 AM EDT Office Visit [facility] [address] [place] [address] Anali Henry MD Primary hypertension (Primary Dx); Dyslipidemia; Type 2 diabetes mellitus with hyperglycemia, without long-term current use of insulin (CMS/HCC); Chest congestion; Obstructive sleep apnea syndrome; Class 3 obesity (CMS/HCC); Metabolic dysfunction-associate d steatotic liver disease (MASLD); Psoriasis; Elevated CK; Tobacco dependence 05/26/2025 Travel 05/25/2025 Telephone [facility] [address] [place] [address] Anali Henry MD Chart Prep 05/18/2025 Refill [facility] [address] [place] [address] Martha Russo MD 05/15/2025 Refill [facility] [address] [place] [address] Anali Henry MD Type 2 diabetes mellitus with hyperglycemia, without long-term current use of insulin (CMS/HCC) 04/20/2025 Telephone [facility] [address] [place] [address] Marisol Church OD from Last 3 Months Immunizations Immunization Administration [...] 05/26/2025 9:38 AM EDT Plan of Treatment Upcoming Encounters Date Type Department Care Team (Late st Contact Info) Description 08/24/2025 10:00 AM EDT Office Visit [facility] [address] [place], [place] [phone] Anali Henry MD [address] [place], [place] [phone] Health Maintenance Due Date Last Done Comments [...] Urine Protein Screening 05/10/2023 05/10/2022 COVID-19 Vaccine (3 - season) 2025 02/03/2021, 01/06/2021 Influenza Vaccine (#1) 2025 8, 10/21/2012, 07/27/2011, Additional history exists Alcohol/Substance Use Screening 11/04/2025 11/04/2024 Depression Screening 11/04/2025 11/04/2024, 11/04/20 Diabetes: Foot Exam 11/04/2025 11/04/2024, 11/04/2024, 11/04/2024, Additional history exists Lipid Panel 11/04/2025 11/04/2024, 05/10/2022 Diabetes: Hemoglobin A1C 11/26/2025 025, 03/03/2025, 11/04/2024, Additional history exists Disability Screening 05/26/2026 05/26/2025 SDOH Screening 05/26/2026 05/26/2025 Tobacco Screening 05/27/2026 05/27/2025 Eye Exam 12/25/2026 12/25/2024, 12/07, 12/25/2024, Additional history exists Dental X-Ray: Full Mouth 09/05/2027 09/04/2024, 1102/2016 Colonoscopy 06/01/2028 06/01/2023 Colorectal Cancer Screening 06/01/2028 [...] Procedure Name Priority Date/Time Associated Diagnosis Comments POLYSOMNOGRAM Routine 07/02/[address] CERVICAL SPINE WO CONTRAST Routine 06/16/2025 [...] Recently Relevant to Health Maintenance Results * Polysomnography (07/02/2025) us Anali Henry MD [facility] ORDERABLES Final Re sult * CT Cervical Spine w/o Contrast (06/16/2025 10:38 AM EDT) Anatomical Region Laterality Modality Spine, C-spine Computed Tomogra phy 06/16/2025 10:3 8 AM EDT Narrative 06/16/2025 11:15 AM EDT [address] [address] [address] Scan Report Signed Patient: Cholo Rivas MR#: [id number] 0 : 1970 Acct:[id number] Age/Sex: 55 / M ADM Date: 06/16/25 Loc: HO.ED Attending Dr: Ordering Physician: Keeley Oakes Date of Service: 06/16/25 Procedure(s): CT cervical spine wo IV con Accession Number(s): [id number] cc: Keeley Oakes; Anali Henry MD Report Number: [id number]: Total DLP = 607.00 mGy-cm EXAMINATION: CT [...] 06/16/25 1111 DD/ 1038 TD/TT: 06/16/25 1103 Assistant Case Manager: Procedure Note Donotuseinterpreter, Image - 06/16/[address] [place] [address] [address] Scan Report Signed Patient: Cholo RivasMR#: [id number] 0 : 1970Acct:[id number] Age/Sex: 55 / MADM Date: 06/16/25 Loc: .ED Attending Dr: Ordering Physician: Keeley Oakes Date of Service: 06/16/25 Procedure(s): CT cervical spine wo IV con Accession Number(s): [id number] cc: Keeley Oakes; Anali Henry MD Report Number: [id number]: Total DLP = 607.00 mGy-cm EXAMINATION: CT [...] 06/16/25 1111 DD/ 1038 TD/TT: 06/16/25 1103 Assistant Case Manager: [facility] External Provider IMG CT PROCEDURES Edited Result - Final * XR Shoulder 2+ Views Left (06/16/2025 9:28 AM EDT) Anatomical Region Laterality Modality Upper Extremities, Shoulder Left Radi ographic Imaging 06/16/2025 9:28 AM EDT Narrative 06/16/2025 10:36 AM EDT [address] [address] XRay Report Signed Patient: Cholo Rivas MR#: [id number] 0 : 1970 Acct:[id number] Age/Sex: 55 / M ADM Date: 06/16/25 Loc: HO.ED Attending Dr: Ordering Physician: Osmel Brown MD Date of Service: 06/16/25 Procedure(s): XR shoulder LT min 2V Accession Number(s): [id number] cc: Osmel Brown MD; Anali Henry MD [...] Rondon MD in OV> 06/16/25 1033 DD/ 0928 TD/TT: 06/16/25 1029 Assistant Case Manager: Procedure Note Donotuseinterpreter, Image - 06/16/2025 [place] [address] XRay Report Signed Patient: Cholo RivasMR#: [id number] 0 : 1970Acct:[id number] Age/Sex: 55 / MADM Date: 06/16/25 Loc: HO.ED Attending Dr: Ordering Physician: Osmel Brown MD Date of Service: 06/16/25 Procedure(s): XR shoulder LT min 2V Accession Number(s): [id number] cc: Osmel Brown MD; Anali Henry MD [...] Cristino Rondon MDin OV> 06/16/25 1033 DD/ 0928 TD/TT: 06/16/25 1029 Assistant Case Manager: [facility] External Provider IMG XR PROCEDURES Edited Result - Final * XR Chest 2 Views (06/16/2025 9:26 AM EDT) Anatomical Region Laterality Modality Chest Radiographic Poppy ging 06/16/2025 9:26 AM EDT Narrative 06/16/2025 10:35 AM EDT [place] [address] XRay Report Signed Patient: Cholo Rivas MR#: [id number] 0 : 1970 Acct:[id number] Age/Sex: 55 / M ADM Date: 06/16/25 Loc: .ED Attending Dr: Ordering Physician: Osmel Brown MD Date of Service: 06/16/25 Procedure(s): XR chest 2V Accession Number(s): [id number] cc: Osmel Brown MD; Anali Henry MD [...] Cristino Brewer MD 06/16/2025 10:32 AM EDT RP Dictated By: Cristino Wetzel MD Signed By: <Electronically signed by Cristino Rondon MD in OV> 06/16/25 1032 DD/ 5 TD/TT: 06/16/25 1029 Assistant Case Manager: Procedure Note Donotalfieinterpreter, Image - 06/16/2025 [place] [address] XRay Report Signed Patient: Cholo RivasMR#: [id number] 0 : 1970Acct:[id number] Age/Sex: 55 / MADM Date: 06/16/25 Loc: HO.ED Attending Dr: Ordering Physician: Osmel Brown MD Date of Service: 06/16/25 Procedure(s): XR chest 2V Accession Number(s): [id number] cc: Osmel Brown MD; Anali Henry MD [...] Cristino Rondon MDin OV> 06/16/25 1032 DD/ 5 TD/TT: 06/16/25 1029 Assistant Case Manager: [facility] External Provider IMG XR PROCEDURES Edited Result - Final * XR Tibia Fibula 2 Views Left (06/16/2025 8:49 AM EDT) Anatomical Region Laterality Modality Lower Extremities, Lower Leg Left Rad iographic Imaging 06/16/2025 8:49 AM EDT Narrative 06/16/2025 9:56 AM EDT [address] [address] XRay Report Signed Patient: Cholo Rivas MR#: [id number] 0 : 1970 Acct:[id number] Age/Sex: 55 / M ADM Date: 06/16/25 Loc: HO.ED Attending Dr: Ordering Physician: Keeley Oakes Date of Service: 06/16/25 Procedure(s): XR tibia fibula LT 2V Accession Number(s): [id number] cc: Keeley Oakes; Anali Henry MD EXAMINATION: [...] signed by Adalberto Bruce MD in OV> 06/16/25 0954 DD/ TD/TT: 06/16/25 0948 Assistant Case Manager: Procedure Note Donotuseinterpreter, Image - 06/16/[address] [address] XRay Report Signed Patient: Cholo RivasMR#: [id number] 0 : 1970Acct:[id number] Age/Sex: 55 / MADM Date: 06/16/25 Loc: .ED Attending Dr: Ordering Physician: Keeley Oakes Date of Service: 06/16/25 Procedure(s): XR tibia fibula LT 2V Accession Number(s): [id number] cc: Keeley Oakes; Anali Henry MD EXAMINATION: [...] Adalberto Bruce MD 06/16/2025 09:54 AM EDT Dictated By: Adalberto Bruce MD Signed By: <Electronically signed by Adalberto Bruce MD in OV> 06/16/25 0954 DD/ TD/TT: 06/16/25 0948 Assistant Case Manager: [facility] External Provider IMG XR PROCEDURES Edited Result - Final * POCT glucose manually resulted (05/26/2025 9:42 AM EDT) Glucose Blood, POC 150 60 - 200 mg/dL QC Media Lot # [id number] Lot# Expiration Date [id number] Blood Capillary blood specimen / Unknown 05/26/2025 9:42 AM EDT Anali Henry MD POINT OF CARE TEST ENTER/EDIT OR DERABLES Final Result * (ABNORMAL) POCT glycosylated hemoglobin (Hgb A1c) (05/26/2025 9:41 AM EDT) Hemoglobin A1C 6.5(A) 4.0 - 5.7 % QC Media Lot # [id number] Lot# Expiration Date [id number] Blood Capillary blood specimen / Unknown 05/26/2025 9:41 AM EDT Anali Henry MD POINT OF CARE TEST ENTER/EDIT OR DERABLES Final Result * (ABNORMAL) Lipid Panel with Reflex to Direct LDL (11/04/2024 9:53 AM EST) Triglycerides 125 <150 mg/dL [facility] Comment:Desirable Triglyceri de: less than 150 mg/dLBorderline High Triglyceride 150-199 mg/dLHigh Triglyceride: 200-499 mg/dLVery High Triglyceride: greater than or equal to 5OO mg/dL Cholesterol 197 <200 mg/dL [facility] Comment:Desirable Cholestero l: less than 200 mg/dLBorderline High Cholesterol: 200-239 mg/dLHigh Cholesterol: greater than 239 mg/dL LDL Cholesterol Calculated 121(H) <100 mg/dL [facility] Comment:Desirable LDL: less than 100 mg/dLNear Optimal/Above Optimal LDL: 110- 129 mg/dLBorderline High LDL: 130-159 mg/dLHigh LDL: 160-189 mg/dLVery High LDL: greater than or equal to 190 mg/dL HDL Cholesterol 51 >40 mg/dL [facility] Comment:Desirable HDL: great er than 40 mg/dL Note: This HDL assay may give artificially low results in patients with liver disease. Blood 11/04/2024 9:53 AM EST 11/04/2024 11:02 AM EST Anali Henry MD LAB BLOOD ORDERABLES Final Resul t [facility] [address] [place] [phone] * (ABNORMAL) Hm Colonoscopy (06/01/2023) [facility] Colonoscopy Abnormal(A ) Normal Historical Provider HEALTH MAINTENANCE Edited Result - Final * HEPATITIS C AB W/REFL TO HCV RNA, QN, PCR (05/10/2022 9:52 AM EDT) [facility] HEPATITIS C ANTIBODY NON-REACT ANAYELI NON-REACT ANAYELI [facility] INDEX 0.63 <1.00 [facility] Comment: HCV antibody was non-reactive. There is no laboratory evidence of HCV infection. In most cases, no further action is required. However, if recent HCV exposure is suspected, a test for HCV RNA (test code 72297) is suggested. For additional information please refer to http://education.[employer]/faq/UNZ68c8 (This link is being provided for informational/ educational purposes only.) 05/10/2022 9:52 AM EDT Anali Henry MD HISTORICAL/NON ORDERABLE LABS Fi nal Result Performing Organization Address [facility] de Phone Number [facility] [address] [place] [address], * ALBUMIN, RANDOM URINE W/CREATININE (05/10/2022 9:52 AM EDT) Microalbumin Urine 0.4 See Note: mg/dL [facility] Comment: Reference Range: Reference Range Not established Microalb/Creat Ratio 5 <30 mcg/mg creat [facility] Comment: The ADA defines abnormalities [...] Creatinine, Urine 82 20 - 320 mg/dL [facility] 05/10/2022 9:52 AM EDT Anali Henry MD LAB URINE ORDERABLES Final Resul t Performing Organization Address [facility] Phone [facility] [place] [address], * HIV 1/2 ANTIGEN/ANTIBODY,FOURTH GENERATION W/RFL (05/10/2022 9:52 AM EDT) HIV-1/2 ANTIGEN AND ANTIBODIES, 4TH GENERATION W/ REFLEX NON-REACT ANAYELI NON-REACT [facility]YELI [facility] Comment: HIV-1 antigen and HIV-1/HIV-2 [...] purpose. For additional information please refer to http://education.[employer]/faq/ZHE017 (This link is being provided for informational/ educational purposes only.) The performance of this assay has not been clinically validated in patients less than 2 years old. 05/10/2022 9:52 AM EDT us Anali Henry MD LAB BLOOD ORDERABLES Final Resul t [facility] [address] from Last 3 Months or Most Recently Relevant to Health Maintenance Insurance [facility] < [address] [id number] [facility] Care Teams Belt Sewer Relationship Specialty Start Date End Date Anali Henry MD [address] [place] [address] PCP - General Family Medicine 09/04/12
--- OUTSIDE RECORDS SUMMARY | 2025-07-17 11:51 | XMS_ITS | Encounter Summary ---
Author Organization [employer] Address [address] [facility] [address] [place] [address] Care Team Providers Care Validation Intern Name Role Phone Anali Henry MD Primary Care Provider [phone] Reason for Visit * Reason Comments Med Refill Encounter Details Date Type Department Care Team ([facility] st Contact Info) Description 03/31/2025 Refill [facility] [address] [place] [address] Anali Henry MD [address] [place], [place] [phone] Social History Tobacco Use Types Packs/Day Years [...] 10:00 AM EDT Office Visit [facility] [address] [place] [address] Anali Henry MD [address] [place] [address] documented as of this encounter Visit Diagnoses Not on filedocumented in this encounter Additional Health Concerns Assessment Noted Time PHQ-9 Depression Total Score: 0 11/04/20 24 9:28 AM EST documented as of this encounter Care Teams Validation Intern Relationship Specialty Start Date End Date Anali Henry MD [address] [place] [address] PCP - General Family Medicine 09/04/12 documented as of this encounter
--- OUTSIDE RECORDS SUMMARY | 2025-07-17 11:51 | XMS_ITS | Encounter Summary ---
Author Organization [employer] Address [address] [facility] 7t [place] [address] Care Team Providers Care Sales Representative Cash Registers Name Role Phone Anali Henry MD Primary Care Provider Encounter Details Date Type Department Care Team (Late st Contact Info) Description 11/07/2024 Orders Only [facility] [address] [place], [place] [phone] Anali Henry MD [address] [place], [place] [phone] Social History Tobacco Use Types Packs/Day Years [...] Description 08/24/2025 10:00 AM EDT Office Visit [facility] [address] [place] [phone] Anali Henry MD [address] [place] [phone] documented as of this encounter Visit Diagnoses Not on filedocumented in this encounter Additional Health Concerns Assessment Noted Time PHQ-9 Depression Total Score: 0 11/04/20 24 9:28 AM EST documented as of this encounter Care Teams Sales Representative Cash Registers Relationship Specialty Start Date End Date Anali Henry MD [address] [place] [phone] PCP - General Family Medicine 09/04/12 documented as of this encounter
--- OUTSIDE RECORDS SUMMARY | 2025-07-17 11:51 | XMS_ITS | Encounter Summary ---
Author Organization [employer] Address [address] [facility] 7t [place] [address] Care Team Providers Care Marketing Business Analyst Name Role Phone Anali Henry MD Primary Care Provider [phone] Reason for Visit * Reason Onset Date Comments Nurse Triage 03/06/2024 Encounter Details Date Type Department Care Team ([facility] st Contact Info) Description 03/06/2024 Telephone [facility] [address] [place] [address] Anali Henry MD [address] [place] [address] Nurse Triage Social History Tobacco Use Types [...] Description 08/24/2025 10:00 AM EDT Office Visit [facility] [address] [place] [address] Anali Henry MD [address] [place] [address] documented as of this encounter Visit Diagnoses Not on filedocumented in this encounter Care Teams Marketing Business Analyst Relationship Specialty Start Date End Date Anali Henry MD [address] [place], [place] [phone] PCP - General Family Medicine 09/04/12 documented as of this encounter
--- OUTSIDE RECORDS SUMMARY | 2025-07-17 11:51 | XMS_ITS | Encounter Summary ---
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 Name Role Phone Anali Henry MD Primary Care Provider [phone] Reason for Referral * Imaging (Routine) - Closed Specialty Diagnoses / Procedures Referred By Contruthie chahal Referred To Contact Radiology Diagnoses Metabolic dysfunction-associated steatotic liver disease (MASLD) Procedures US Abdomen Comp w elastography Anali Henry MD [address] [place] [address] Phone: tel: fax: [address] Phone: tel: fax: Referral ID Status Reason Start Date Expiration Date Visits Re quested Visits Authorized [id number] Closed 02/23/2024 02/22/2025 1 1 Encounter Details Date Type Department Care Team (Late st Contact Info) Description 02/23/2024 Orders Only [facility] [address] [place], [place] [phone] Anali Henry MD [address] [place], [place] [phone] Metabolic dysfunction-associated steatotic liver disease (MASLD) (Primary [...] Description 08/24/2025 10:00 AM EDT Office Visit [facility] [address] [place] [phone] Anali Henry MD [address] [place] [address] documented as of this encounter Procedures Procedure [...] Sensitivity Troponin I (08/23/2024 10:23 PM EDT) [facility] TROPONIN I HIGH SENSITIVITY <2.7 <3.5 - 35.0 ng/L [facility] Comment:The Bourne high sens itivity Troponin-I results should beused in conjunction with other diagnostic information suchas ECG, clinical observations and information, and patientsymptoms to aid in the diagnosis of AR. 08/23/2024 10:2 3 PM EDT 08/23/2024 10:28 PM EDT us Generic External Data Provider LAB BLOOD ORDERAB LES Final Result Performing Organization Address [facility]/ZIP Co de Phone Number [facility] [address] [place] [phone] * Lipase (08/23/2024 10:23 PM EDT) Pathologist [facility] Lipase 43 8 - 78 U/L [facility] 08/23/2024 10:2 3 PM EDT 08/23/2024 10:28 PM EDT Generic External Data Provider LAB BLOOD ORDERAB LES Final Result Performing Organization Address [facility]/ZIP Co de Phone Number [facility] [address] [place] [phone] * Magnesium (08/23/2024 10:23 PM EDT) Magnesium 2.2 1.6 - 2.6 mg/dL [facility] 08/23/2024 10:2 3 PM EDT 08/23/2024 10:28 PM EDT us Generic External Data Provider LAB BLOOD ORDERAB LES Final Result [facility] [address] [place] [phone] * (ABNORMAL) Comprehensive Metabolic Panel (08/23/2024 10:23 PM EDT) Sodium 143 135 - 145 mmol/L [facility] Potassium 3.8 3.3 - 5.1 mmol/L [facility] Chloride 110(H) 96 - 108 mmol/L [facility] Carbon Dioxide 25 22 - 29 mmol/L [facility] Anion Gap 12 12 - 20 [facility] Urea Nitrogen (BUN) 16 9 - 16 mg/dL [facility] Creatinine, Serum 0.75 0.5 - 1.4 mg/dL [facility] Creatinine Clr Calc Pharmacy 130.1 [facility] Comment:eGFR (calculated fro m the MDRD study equation) and eCrCl(calculated from the Cockcroft-Gault equation) are based ondifferent parameters and may not yield comparable results.If eCrCl result is absurd, please check patient'sheight/weight. Estimated Glomerular Filt Rate >60 [facility] Comment:NOTE: For -Am erican individuals, multiply the result by 1.210.Chronic Kidney Disease: Estimated GFR < 60 mL/min/1.67c0Rinxjp Kidney Disease: Estimated GFR < 15 mL/min/1.73m2 Glucose 144(H) 60 - 115 mg/dL [facility] Calcium 8.9 8.4 - 10.2 mg/dL [facility] Bilirubin, Total 0.2 0.0 - 1.0 mg/dL [facility] Aspartate Amino Transferase 27 5 - 37 U/L [facility] Alanine Aminotransferase 36 0 - 40 U/L [facility] Total Protein 6.8 6.5 - 8.0 g/dL [facility] Albumin Level 4.0 3.5 - 5.0 g/dL [facility] Alkaline Phosphatase 73 39 - 117 U/L [facility] 08/23/2024 10:2 3 PM EDT 08/23/2024 10:28 PM EDT Generic External Data Provider LAB BLOOD ORDERAB LES Final Result Performing Organization Address [facility]/ZIP Co de Phone Number [facility] [address] [place] [phone] * (ABNORMAL) Prothrombin Time-INR (08/23/2024 10:23 PM EDT) Prothrombin Time 9.8(L) 10.9 - 12.4 SEC [facility] INTERNATIONAL NORM RATIO 0.8(L) 0.9 - 1.1 [facility] Comment:INTERNATIONAL NORMAL IZED RATIO (INR) [...] ORDERAB LES Final Result Performing Organization Address [facility] Co de Phone Number [facility] [address] [place] [phone] * (ABNORMAL) CBC auto differential (08/23/2024 10:23 PM EDT) White Blood Count 10.9(H) 4.8 - 10.8 X10*3/uL [facility] Red Blood Count 4.91 4.60 - 5.80 X10*6/uL [facility] Hemoglobin 15.8 14.0 - 18.0 g/dl [facility] Hematocrit 46.9 42.0 - 52.0 % [facility] Mean Corpuscular Volume 95.5 80.0 - 98.0 fL [facility] Mean Corpuscular Hemoglobin 32.2 27.0 - 33.0 pg [facility] Mean Corpuscular HGB Conc 33.7 31.0 - 36.0 g/dl [facility] Red Cell Distribution Width 12.6 11.0 - 16.0 % [facility] Platelet Count 266 160 - 400 X10*3/uL [facility] Mean Platelet Volume 10.0 9.4 - 12.4 fL [facility] Neutrophils Percent Auto 59.2 45 - 73 % [facility] Imm Gran Pct Auto 0.3 0.0 - 0.4 % [facility] Lymphocytes Percent Auto 31.3 20 - 40 % [facility] Monocytes Percent Auto 6.5 2 - 11 % [facility] Eosinophils Percent Auto 2.1 0 - 4 % [facility] Basophils Percent Auto 0.6 0 - 2 % [facility] NRBC Pct Auto 0.0 0.0 - 0.2 /100WBC [facility] Neutrophils Absolute Auto 6.4 2.0 - 8.3 x10*3/uL [facility] Imm Gran Abs Auto 0.03 0.00 - 0.03 X10*3/uL [facility] Lymphocytes Absolute Auto 3.4 1.2 - 4.9 X10*3/uL [facility] Monocytes Absolute Auto 0.7 0.1 - 1.2 X10*3/uL [facility] Eosinophils Absolute Auto 0.2 0.0 - 0.4 X10*3/uL [facility] Basophils Absolute Auto 0.1 0.0 - 0.2 X10*3/uL [facility] NRBC Abs Auto 0.000 0.0 - 0.012 X10*3/uL [facility] 08/23/2024 10:2 3 PM EDT 08/23/2024 10:28 PM EDT us Generic External Data Provider LAB BLOOD ORDERAB LES Final Result Performing Organization Address City/State/[facility] Co de Phone Number [facility] [address] [place] [phone] * US Abdomen Comp w elastography (03/12/2024 10:15 AM EDT) Anatomical Region Laterality Modality Abdomen Ultrasound 03/12/2024 10:1 5 AM EDT Narrative 03/17/2024 5:46 PM EDT [address] [address] Ultrasound Report Signed Patient: Cholo Rivas MR#: [id number] 0 : 1970 Acct:[id number] Age/Sex: 54 / M ADM Date: 03/12/24 Loc: HO.US Attending Dr: Anali Henry MD Ordering Physician: Anali Henry MD Date of Service: 03/12/24 Procedure(s): US abdomen comp w elastography Accession Number(s): [id number] cc: Anali Henry MD EXAMINATION: US COMPLETE [...] in OV> 03/17/24 1743 DD/ 1015 TD/TT: Barrel Lathe Operator Outside: CESAR Procedure Note Donotuseinterpreter, Image - 03/17/2024 [place] [address] Ultrasound Report Signed Patient: Cholo RivasMR#: [id number] 0 : 1970Acct:[id number] Age/Sex: 54 / MADM Date: 03/12/24 Loc: HO.US Attending Dr: Anali Henry MD Ordering Physician: Anali Henry MD Date of Service: 03/12/24 Procedure(s): US abdomen comp w elastography Accession Number(s): [id number] cc: Anali Henry MD EXAMINATION: US COMPLETE [...] in OV> 03/17/24 1743 DD/ 1015 TD/TT: Barrel Lathe Operator Outside: CESAR Authordmitry Provider Result Type Result Stat us Anali Henry MD IMG US PROCEDURES Final Result documented in this encounter Visit Diagnoses Diagnosis Metabolic dysfunction-associated steatotic liver disease (MASLD)- Primary documented in this encounter Care Teams School Cafeteria Head Cook Relationship Specialty Start Date End Date Anali Henry MD [address] [place] [phone] PCP - General Family Medicine 09/04/12 documented as of this encounter
--- OUTSIDE RECORDS SUMMARY | 2025-07-17 11:51 | XMS_ITS | Encounter Summary ---
Author Organization [employer] Address [address] [facility] 7t [place] [address] Care Team Providers Care Fur Clipper Name Role Phone Anali Henry MD Primary Care Provider [phone] Encounter Details Date Type Department Care Team (Late st Contact Info) Description 11/04/2024 Orders Only [facility] [address] [place] [address] Anali Henry MD [address] [place], [place] [phone] Dyslipidemia (Primary Dx); Elevated CK Social History [...] 10:00 AM EDT Office Visit [facility] [address] [place] [phone] Anali Henry MD [address] [place] [phone] Scheduled Orders Name Type Priority Associated Diagnoses [...] documented as of this encounter Care Teams Fur Clipper Relationship Specialty Start Date End Date Anali Henry MD [address] [place] [phone] PCP - General Family Medicine 09/04/12 documented as of this encounter
== END 2025-07-17 10:23 | disposition home or self-care (01) ==
LOC: HO.CT 10:22
PROVIDERS: PCP Family Medicine; Visit Provider Physician Assistant Medical
DX: Z12.2 Encounter for screening for malignant neoplasm of respiratory organs (principal); F17.210 Nicotine dependence, cigarettes, uncomplicated
CPT/HCPCS: 71271; G0296

== ENCOUNTER → 2025-07-17 10:24 | Outpatient (BNV) | payer OTHER, SELFPAY | PROVIDERS: PCP Family Medicine; Visit Provider Radiology Diagnostic Radiology | DX: F17.210 Nicotine dependence, cigarettes, uncomplicated (principal) | CPT/HCPCS: 71271 ==